=== PATIENT | male | born 1955 | race Caucasian/White ===

== ENCOUNTER 2019-01-18 12:23 | Emergency (ER) | payer MEDICARE ==
[~2019-01-18] VITALS: Ht 170.2 cm; Wt 55.9 kg
[2019-01-18 12:29] VITALS: TEMP 97
[2019-01-18 13:04] LABS: BASO % 0.3 % (0.0-2.0); EOS # 0.4 (0.0-0.7); EOS % 4.6 % (0-4.0); GRAN # 5.4 (1.4-6.5); GRAN % 67.9 % (42.2-75.2); LYMPH # 1.5 (1.2-3.4); MEAN CELL VOLUME 83 fl (80.0-100.0); MEAN CORPUSCULAR HGB CONC 33 g/dl (33.0-37.0); MEAN PLATELET VOLUME 10.1 fl (7.4-10.4); MONO # 0.6 (0.1-0.6); MONO % 7.6 % (1.7-9.3); PLATELET COUNT 277 K/mm3 (130-400); RED BLOOD COUNT 3.45 M/mm3 (4.20-5.60); REDCELL DISTRIBUTION WIDTH-CV 14.5 % (11.5-14.5)
[2019-01-18 13:19] LABS: ALANINE AMINOTRANSFERASE < 6 U/L (21-72); ALBUMIN 3.6 gm/dL (3.5-5.0); ALKALINE PHOSPHATASE 232 U/L (50-136); ANION GAP 12 mmol/L (7-16); AST,SGOT 35 U/L (15-37); BILIRUBIN,TOTAL 0.4 mg/dL (0.0-1.0); BLOOD UREA NITROGEN 30 mg/dL (9-20); CALCIUM 8.7 mg/dL (8.4-10.2); CARBON DIOXIDE 26 mmol/L (22-30); CHLORIDE 97 mmol/L (98-107); CREATININE, serum 1.22 (0.66-1.25); POTASSIUM 4.1 mmol/L (3.4-5.0); SODIUM 135 mmol/L (137-145); TOTAL PROTEIN 9.2 gm/dL (6.4-8.2)
[2019-01-18 13:22] LABS: GLUCOSE 535 mg/dL (74-106)
[2019-01-18 13:38] LABS: HEMATOCRIT 28.5 % (42.0-52.0); HEMOGLOBIN 9.3 g/dl (13.5-18.0); MEAN CORPUSCULAR HEMOGLOBIN 27 pg (27.0-31.0)
[2019-01-18] MEDS ORDERED: ASPIRIN 81M81 MG/TA2 PO (13:52)
[2019-01-18] MEDS ORDERED: NATURAL IRON65 MG (13:53)
[2019-01-18] MEDS ORDERED: CEPHALEXIN500 M1 PO (14:09)
[2019-01-18] MEDS ORDERED: NORCO 325 MG-51 TAB PO (14:10)
[2019-01-18 14:47] LABS: COLLECTION METHOD CLEAN CATCH
[2019-01-18 14:54] LABS: MUCOUS Present /lpf; PH 5 (5-8); SQUAMOUS EPITHELIAL 0-2 /hpf; URINE APPEARANCE Hazy; URINE BACTERIA Many /hpf; URINE BILIRUBIN Negative (NEGATIVE); URINE BLOOD 2+ (NEGATIVE); URINE COLOR Yellow; URINE GLUCOSE 3+ (NEGATIVE); URINE KETONE Negative (NEGATIVE); URINE LEUKOCYTE ESTERASE 2+ (NEGATIVE); URINE NITRATE Positive (NEGATIVE); URINE PROTEIN(semi-quant) 2+ (NEGATIVE); URINE UROBILINOGEN Negative (NEGATIVE)
[2019-01-18 15:15] VITALS: BP 161/103; PULSE 90
== END 2019-01-18 15:15 | disposition home or self-care (01) ==
LOC: COL.ER 12:23 → EDBD 12:25 → COL.ER 12:25
PROVIDERS: Family Medicine
DX: E11.65 Type 2 diabetes mellitus with hyperglycemia (principal); T22.011A Burn of unspecified degree of right forearm, initial encounter
CPT/HCPCS: J0690; J1815; J7030

== ENCOUNTER 2019-03-21 14:57 | Inpatient (IN) | payer MEDICARE ==
[~2019-03-21] VITALS: Ht 170.2 cm; Wt 54.7 kg
[~2019-03-21 14:57] MED LIST changes: -CORTEF 10MG TAB10 MG PO; -CRESTOR40 MG PO; -FLORINEF ACETA0.1 MG PO; -K-TAB10 PO; -LEVEMIR FLEX100 U/ML SQ; -LYRICA 25MG CAP25 MG PO; -NEURONTIN400 MG/CAP PO; -NOVOLOG FLEX100 U/ML SQ; -REQUIP0.25 MG PO; -ZYPREXA7.5 MG PO
[2019-03-21] MEDS ORDERED: FLORINEF ACETA0.1 MG PO (15:20)
[2019-03-21] MEDS ORDERED: NOVOLOG FLEX100 U/ML SQ (15:20)
[2019-03-21] MEDS ORDERED: LEVEMIR FLEX100 U/ML SQ (15:22)
[2019-03-21] MEDS ORDERED: ASPIRIN 81M81 MG/TA2 PO (15:24)
[2019-03-21] MEDS ORDERED: NEURONTIN400 MG/CAP PO (15:25)
[2019-03-21] MEDS ORDERED: CORTEF 10MG TAB10 MG PO (15:25)
[2019-03-21] MEDS ORDERED: ZYPREXA7.5 MG PO (15:27)
[2019-03-21] MEDS ORDERED: REQUIP0.25 MG PO (15:27)
[2019-03-21] MEDS ORDERED: K-TAB10 PO (15:27)
[2019-03-21] MEDS ORDERED: CRESTOR40 MG PO (15:28)
[2019-03-21 16:26] VITALS: BP 175/99; PULSE 102; TEMP 98.2
[2019-03-21 16:28] VITALS: BP 175/99; PULSE 100; TEMP 98.2
--- NOTE | 2019-03-21 18:00 | NUR ---
Pt admitted to floor this afternoon, no C/O pain currently, admission assessment complete, med rec complete.
[2019-03-21 22:09] VITALS: BP 155/81; PULSE 81; TEMP 100.1
--- NOTE | 2019-03-21 22:55 | NUR ---
Report received from EUSEBIA Cueva. Patient resting in bed. Dinner tray finished. Assessment complete. Patient reports pain in his head rating it 4/10. Patient also has temperature of 100.1. PRN tylenol given. Will reassess. Examined feet and did not see any diabetic foot injuries, only thing of importance was a little bit of dryness. IV patent, flushed. Denies any further needs. Call light within reach.
[2019-03-21 23:42] VITALS: BP 154/91; PULSE 93; TEMP 100.1
--- NOTE | 2019-03-22 03:11 | NUR ---
Patient requested urinal for accurate I&O's. Stated his headache had gone away. Patient was very sweaty. Patient denied any other needs. Call light within reach.
[2019-03-22 03:46] VITALS: BP 148/89; PULSE 78; TEMP 97.4
--- NOTE | 2019-03-22 05:33 | NUR ---
Patient had uneventful night. Resting in bed. No further needs at this time. Call light within reach.
--- NOTE | 2019-03-22 06:45 | NUR ---
Report given to EUSEBIA Cueva
--- NOTE | 2019-03-22 07:05 | NUR ---
Report given to EUSEBIA Brandon
[2019-03-22 07:18] LABS: BASO % 0.4 % (0.0-2.0); EOS # 0.3 (0.0-0.7); EOS % 3.7 % (0-4.0); GRAN # 4.6 (1.4-6.5); GRAN % 62.2 % (42.2-75.2); HEMOGLOBIN 10.4 g/dl (13.5-18.0); LYMPH # 1.5 (1.2-3.4); LYMPH % 19.6 % (20.0-51.0); MEAN CELL VOLUME 85 fl (80.0-100.0); MEAN CORPUSCULAR HEMOGLOBIN 27 pg (27.0-31.0); MEAN CORPUSCULAR HGB CONC 32 g/dl (33.0-37.0); MEAN PLATELET VOLUME 9.9 fl (7.4-10.4); MONO % 13.7 % (1.7-9.3); PLATELET COUNT 228 K/mm3 (130-400); RED BLOOD COUNT 3.86 M/mm3 (4.20-5.60)
[2019-03-22 07:27] LABS: HEMATOCRIT 32.9 % (42.0-52.0)
[2019-03-22 07:39] LABS: CALCIUM 8.5 mg/dL (8.4-10.2); CHOLESTEROL RISK RATIO 4.5; CREATININE, serum 1.49 (0.66-1.25); MAGNESIUM 1.7 mg/dL (1.6-2.3); POTASSIUM 3.1 mmol/L (3.4-5.0)
--- NOTE | 2019-03-22 08:00 | NUR ---
SEE MORNING ASSESSMENT.
--- NOTE | 2019-03-22 08:08 | NUR ---
CALLED AND NOTIFIED OF CARDIOLOGY CONSULT FOR CHF. NO ORDERS GIVEN AT THIS TIME.
[2019-03-22 08:43] VITALS: BP 135/84; PULSE 74; TEMP 97.6
--- NOTE | 2019-03-22 10:55 | NUR ---
Initial visit; Patient thanked Settlement Worker for looking in on him and offering God's blessings.
[2019-03-22 11:32] VITALS: BP 126/70; PULSE 85; TEMP 97.9
--- NOTE | 2019-03-22 11:40 | NUR ---
skip pit worker attended clinical rounds and met with with patient to discuss discharge plans. Patient stated he recently moved here from [place] to be closer to her is sister, Zainab. Patient states he lives alone and plans to return there upon discharge. Patient has a cane and states he utilizes food stamps. Patient states he is on the waiting list to start meals on wheels. Patient states that Dr Mckeon is his primary care provider and that he sometimes has difficulty obtaining his prescriptions. Patient states he has his medications that he needs at this time. Patient states he needs to be set up with [facility] and is agreeable to the hospital arranging an appointment at discharge.
--- NOTE | 2019-03-22 12:55 | NUR ---
CODY ANGELES CALLED AND NOTIFIED OF BLOOD SUGAR OF 408. ORDER GIVEN TO DOSE INSULIN PER HIGH SLIDING SCALE AND RE-CHECK BLOOD SUGAR 1 HOUR AFTER LUNCH.
--- NOTE | 2019-03-22 14:26 | NUR ---
PATIENTS BLOOD SUGAR RE-CHECKED ONE HOUR AFTER THE PATIENT RECIEVED 14 UNITS OF INSULIN AND ATE LUNCH. BLOOD SUGAR IS 312. CODY ANGELES CALLED AND NOTIFIED OF BLOOD SUGAR. ORDER GIVEN TO RE-CHECK THE PATIENTS BLOOD SUGAR IN ONE HOUR, AND IF STILL HIGH GIVE INSULIN BASED OFF THE HIGH DOSE NOVOLOG SLIDING SCALE.
[2019-03-22 15:38] VITALS: BP 140/85; PULSE 80; TEMP 97.3
--- NOTE | 2019-03-22 15:47 | NUR ---
PATIENTS BLOOD SUGAR RE-CHECKED AND IS 188. CODY ANGELES CALLED AND NOTIFIED OF BLOOD GLUCOSE LEVEL. ORDER GIVEN TO DOSE INSULIN WITH EVENING MEAL.
--- NOTE | 2019-03-22 17:54 | NUR ---
REPORT GIVEN TO EUSEBIA CISNEROS.
[2019-03-22 21:55] VITALS: BP 159/81; PULSE 80; TEMP 97.6
[2019-03-23 00:21] VITALS: BP 153/82; PULSE 75; TEMP 98.2
--- NOTE | 2019-03-23 00:38 | NUR ---
Pt sleeping in bed. Awoke for vital signs. Stated he was waiting for his sister to arrive. Sister arrived and is at bedside as VS were complete. Pt not in any pain or discomfort. Pt voices no concerns or questions at this time. Call light and personal belongings within reach. No other concerns.
[2019-03-23 04:34] VITALS: BP 156/87; PULSE 88; TEMP 98.1
[2019-03-23 06:46] LABS: BASO % 0.3 % (0.0-2.0); EOS # 0.3 (0.0-0.7); EOS % 4.1 % (0-4.0); GRAN # 4.4 (1.4-6.5); GRAN % 60.7 % (42.2-75.2); LYMPH # 1.6 (1.2-3.4); LYMPH % 22.1 % (20.0-51.0); MEAN CELL VOLUME 84 fl (80.0-100.0); MEAN CORPUSCULAR HGB CONC 32 g/dl (33.0-37.0); MONO # 0.9 (0.1-0.6); MONO % 12.4 % (1.7-9.3); PLATELET COUNT 230 K/mm3 (130-400); RED BLOOD COUNT 3.64 M/mm3 (4.20-5.60); REDCELL DISTRIBUTION WIDTH-CV 13.8 % (11.5-14.5)
[2019-03-23 06:47] LABS: HEMATOCRIT 30.4 % (42.0-52.0); HEMOGLOBIN 9.8 g/dl (13.5-18.0); MEAN CORPUSCULAR HEMOGLOBIN 27 pg (27.0-31.0)
[2019-03-23 06:53] LABS: CALCIUM 8.3 mg/dL (8.4-10.2); CREATININE, serum 1.41 (0.66-1.25); MAGNESIUM 1.7 mg/dL (1.6-2.3); POTASSIUM 3.6 mmol/L (3.4-5.0)
[2019-03-23 07:28] VITALS: BP 165/91; PULSE 85; TEMP 97.8
--- NOTE | 2019-03-23 07:54 | NUR ---
Report given to Rachel. Pt is resting quietly in bed. He voices no concern or needs at this moment. No further concern at this moment.
--- NOTE | 2019-03-23 10:02 | NUR ---
Pt awake alert and oriented. Pt denied pain. Call light in reach. Pt resting in bed.
[2019-03-23] MEDS ORDERED: LYRICA 25MG CAP25 MG PO (10:44)
[2019-03-23] MEDS ORDERED: CEPHALEXIN500 M1 PO (10:47)
--- NOTE | 2019-03-23 11:28 | NUR ---
Pt resting in bed comfortably with no concern. Call light in reach.
--- NOTE | 2019-03-23 12:30 | NUR ---
Pt resting and denied pain. Pt verbalizes that he'd like to have lunch here and wait for his ride home. Call light in reach.
[2019-03-23 12:59] VITALS: BP 127/70; PULSE 88; TEMP 98.9
--- NOTE | 2019-03-23 13:42 | NUR ---
Pt reveiwed his discharge instruction and able to verbalize understaning of DC instruction. Pt signed dc paper and waiting for pt's daughter to give her a ride back home. Call light in reach.
--- NOTE | 2019-03-23 15:06 | NUR ---
Pt and family reviewed discharge instruction and able to verbalize understanding of dc instruction. Pt signed dc paper and escorted out in WC.
== END 2019-03-23 15:07 | disposition home or self-care (01) | DRG 644 ==
LOC: MEDICAL 14:57
PROVIDERS: Nurse Practitioner Family; ADMIT Hospitalist
DX: E27.1 Primary adrenocortical insufficiency (principal); N39.0 Urinary tract infection, site not specified; I31.3 Pericardial effusion (noninflammatory); E11.65 Type 2 diabetes mellitus with hyperglycemia; E11.40 Type 2 diabetes mellitus with diabetic neuropathy, unspecified; Z79.4 Long term (current) use of insulin; B96.1 Klebsiella pneumoniae [K. pneumoniae] as the cause of diseases classified elsewhere; R31.9 Hematuria, unspecified; N18.3 Chronic kidney disease, stage 3 (moderate); E11.22 Type 2 diabetes mellitus with diabetic chronic kidney disease; E87.6 Hypokalemia; I25.10 Atherosclerotic heart disease of native coronary artery without angina pectoris; Z95.5 Presence of coronary angioplasty implant and graft; E78.5 Hyperlipidemia, unspecified; E11.621 Type 2 diabetes mellitus with foot ulcer; L97.519 Non-pressure chronic ulcer of other part of right foot with unspecified severity; F41.9 Anxiety disorder, unspecified; G25.81 Restless legs syndrome; I12.9 Hypertensive chronic kidney disease with stage 1 through stage 4 chronic kidney disease, or unspecified chronic kidney disease
CPT/HCPCS: 99222-AI; 99232-AI; 99239; A4216; J0696; J1644; J1815; J1940

== ENCOUNTER → 2019-03-21 | Outpatient (CLI) | payer MEDICARE ==
[~2019-03-21] MED LIST: ASPIRIN 81M81 MG/TA2 PO; CEPHALEXIN500 M1 PO; CORTEF 10MG TAB10 MG PO; CRESTOR40 MG PO; FLORINEF ACETA0.1 MG PO; K-TAB10 PO; LEVEMIR FLEX100 U/ML SQ; LYRICA 25MG CAP25 MG PO; NATURAL IRON65 MG; NEURONTIN400 MG/CAP PO; NORCO 325 MG-51 TAB PO; NOVOLOG FLEX100 U/ML SQ; REQUIP0.25 MG PO; ZYPREXA7.5 MG PO
[2019-03-21 12:21] LABS: COLLECTION METHOD CLEAN CATCH
[2019-03-21 12:27] LABS: BASO % 0.3 % (0.0-2.0); EOS # 0.3 (0.0-0.7); EOS % 2.6 % (0-4.0); GRAN # 6.5 (1.4-6.5); GRAN % 66.2 % (42.2-75.2); HEMOGLOBIN 10.2 g/dl (13.5-18.0); LYMPH # 1.8 (1.2-3.4); LYMPH % 18.5 % (20.0-51.0); MEAN CELL VOLUME 86 fl (80.0-100.0); MEAN CORPUSCULAR HEMOGLOBIN 27 pg (27.0-31.0); MEAN CORPUSCULAR HGB CONC 31 g/dl (33.0-37.0); MEAN PLATELET VOLUME 9.6 fl (7.4-10.4); MONO # 1.2 (0.1-0.6); MONO % 11.9 % (1.7-9.3); PLATELET COUNT 226 K/mm3 (130-400); RED BLOOD COUNT 3.85 M/mm3 (4.20-5.60); REDCELL DISTRIBUTION WIDTH-CV 14.1 % (11.5-14.5)
[2019-03-21 12:33] LABS: PH 6 (5-8); SQUAMOUS EPITHELIAL None Seen /hpf; URINE APPEARANCE Cloudy; URINE BACTERIA Many /hpf; URINE BILIRUBIN Negative (NEGATIVE); URINE BLOOD 2+ (NEGATIVE); URINE COLOR Yellow; URINE GLUCOSE 1+ (NEGATIVE); URINE KETONE Negative (NEGATIVE); URINE LEUKOCYTE ESTERASE 3+ (NEGATIVE); URINE NITRATE Negative (NEGATIVE); URINE PROTEIN(semi-quant) 2+ (NEGATIVE); URINE RBC 20-50 /hpf; URINE UROBILINOGEN Negative (NEGATIVE)
[2019-03-21 12:35] LABS: ALBUMIN 3.7 gm/dL (3.5-5.0); BILIRUBIN,TOTAL 0.3 mg/dL (0.0-1.0); CALCIUM 8.4 mg/dL (8.4-10.2); CREATININE, serum 1.43 (0.66-1.25); POTASSIUM 3.7 mmol/L (3.4-5.0); TOTAL PROTEIN 8.6 gm/dL (6.4-8.2)
[2019-03-21 12:37] LABS: HEMATOCRIT 32.9 % (42.0-52.0)
[2019-03-21 12:47] LABS: TROPONIN-I 0.014 ng/mL (0.000-0.035)
[2019-03-21 12:59] LABS: URINE PROTEIN:CREAT RATIO 9.24 (0.00-0.14)
[2019-03-21 13:05] LABS: THYROID STIMULATING HORMONE 2.46 uIU/mL (0.465-4.680)
== END ==
LOC: COL.RAD 11:47
PROVIDERS: Family Medicine
DX: J98.6 Disorders of diaphragm (principal); I51.9 Heart disease, unspecified; R63.5 Abnormal weight gain; M79.89 Other specified soft tissue disorders; R31.9 Hematuria, unspecified

== ENCOUNTER 2020-01-20 19:18 | Emergency (ER) | payer MEDICARE ==
[~2020-01-20] VITALS: Ht 170.2 cm; Wt 61.4 kg
[~2020-01-20 19:18] MED LIST changes: +CORTEF 10MG TAB10 MG PO; +CRESTOR40 MG PO; +FLORINEF ACETA0.1 MG PO; +K-TAB10 PO; +LEVEMIR FLEX100 U/ML SQ; +LYRICA 25MG CAP25 MG PO; +NEURONTIN400 MG/CAP PO; +NOVOLOG FLEX100 U/ML SQ; +REQUIP0.25 MG PO; +ZYPREXA7.5 MG PO
[2020-01-20 19:25] VITALS: TEMP 97.8
[2020-01-20 19:44] LABS: BASO % 0.3 % (0.0-2.0); EOS # 0.1 (0.0-0.7); EOS % 0.9 % (0-4.0); GRAN # 5.3 (1.4-6.5); GRAN % 71.5 % (42.2-75.2); LYMPH # 1.3 (1.2-3.4); LYMPH % 18.1 % (20.0-51.0); MEAN CELL VOLUME 82 fl (80.0-100.0); MEAN CORPUSCULAR HEMOGLOBIN 28 pg (27.0-31.0); MEAN CORPUSCULAR HGB CONC 34 g/dl (33.0-37.0); MEAN PLATELET VOLUME 10.8 fl (7.4-10.4); MONO # 0.7 (0.1-0.6); MONO % 8.8 % (1.7-9.3); PLATELET COUNT 200 K/mm3 (130-400); REDCELL DISTRIBUTION WIDTH-CV 12.5 % (11.5-14.5)
[2020-01-20 19:49] LABS: HEMATOCRIT 29.4 % (42.0-52.0)
[2020-01-20 19:57] LABS: COLLECTION METHOD CLEAN CATCH
[2020-01-20 19:58] LABS: ALANINE AMINOTRANSFERASE 34 U/L (4-49); ALBUMIN 3.3 gm/dL (3.5-5.0); ALKALINE PHOSPHATASE 146 U/L (50-136); ANION GAP 10 mmol/L (7-16); AST,SGOT 40 U/L (15-37); BILIRUBIN,TOTAL 0.4 mg/dL (0.0-1.0); BLOOD UREA NITROGEN 34 mg/dL (9-20); CALCIUM 8.1 mg/dL (8.4-10.2); CARBON DIOXIDE 27 mmol/L (22-30); CHLORIDE 98 mmol/L (98-107); CREATININE, serum 2.34 (0.66-1.25); GLUCOSE 396 mg/dL (74-106); POTASSIUM 3.1 mmol/L (3.4-5.0); SODIUM 134 mmol/L (137-145); TOTAL PROTEIN 7.1 gm/dL (6.4-8.2)
[2020-01-20 19:59] LABS: ACETONE,SERUM NEGATIVE; C-REACTIVE PROTEIN < 0.5 mg/dL (0.0-0.9)
[2020-01-20 20:05] LABS: PH 6 (5-8); SQUAMOUS EPITHELIAL 0-2 /hpf; URINE APPEARANCE Clear; URINE BACTERIA None Seen /hpf; URINE BILIRUBIN Negative (NEGATIVE); URINE BLOOD 2+ (NEGATIVE); URINE COLOR Straw; URINE GLUCOSE 3+ (NEGATIVE); URINE KETONE Negative (NEGATIVE); URINE LEUKOCYTE ESTERASE Negative (NEGATIVE); URINE NITRATE Negative (NEGATIVE); URINE PROTEIN(semi-quant) 3+ (NEGATIVE); URINE UROBILINOGEN Negative (NEGATIVE)
[2020-01-20] MEDS ORDERED: CEPHALEXIN500 M1 PO (20:52)
[2020-01-20 22:00] VITALS: BP 150/90; PULSE 88
== END 2020-01-20 22:00 | disposition home or self-care (01) ==
LOC: COL.ER 19:18
PROVIDERS: Emergency Medicine
DX: S99.922A Unspecified injury of left foot, initial encounter (principal); E11.65 Type 2 diabetes mellitus with hyperglycemia; E11.40 Type 2 diabetes mellitus with diabetic neuropathy, unspecified; Z79.4 Long term (current) use of insulin; Z79.82 Long term (current) use of aspirin; X58.XXXA Exposure to other specified factors, initial encounter; W22.8XXA Striking against or struck by other objects, initial encounter
CPT/HCPCS: J7030

== ENCOUNTER 2020-03-07 09:57 | Emergency (ER) | payer MEDICARE ==
[~2020-03-07] VITALS: Ht 170.2 cm; Wt 65.9 kg
[2020-03-07 10:00] VITALS: TEMP 98.3
[2020-03-07 10:29] LABS: BASO % 0.3 % (0.0-2.0); EOS % 0.4 % (0-4.0); GRAN # 9.5 (1.4-6.5); LYMPH % 9.2 % (20.0-51.0); MEAN CELL VOLUME 84 fl (80.0-100.0); MEAN CORPUSCULAR HGB CONC 33 g/dl (33.0-37.0); MEAN PLATELET VOLUME 9.6 fl (7.4-10.4); MONO # 0.5 (0.1-0.6); MONO % 4.5 % (1.7-9.3); PLATELET COUNT 215 K/mm3 (130-400); REDCELL DISTRIBUTION WIDTH-CV 14.6 % (11.5-14.5)
[2020-03-07 10:34] LABS: HEMATOCRIT 29.5 % (42.0-52.0); HEMOGLOBIN 9.8 g/dl (13.5-18.0); MEAN CORPUSCULAR HEMOGLOBIN 28 pg (27.0-31.0)
[2020-03-07 10:42] LABS: ALBUMIN 3.8 gm/dL (3.5-5.0); BILIRUBIN,TOTAL 0.4 mg/dL (0.0-1.0); CALCIUM 7.1 mg/dL (8.4-10.2); CREATININE, serum 2.96 (0.66-1.25); MAGNESIUM 1.8 mg/dL (1.6-2.3); PHOSPHOROUS 4.3 mg/dL (2.5-4.5); TOTAL PROTEIN 7.8 gm/dL (6.4-8.2)
[2020-03-07 10:46] LABS: POTASSIUM 2.4 mmol/L (3.4-5.0)
[2020-03-07 10:59] LABS: COLLECTION METHOD CLEAN CATCH
[2020-03-07 11:09] LABS: PH 7 (5-8); SQUAMOUS EPITHELIAL None Seen /hpf; URINE APPEARANCE Clear; URINE BACTERIA None Seen /hpf; URINE BILIRUBIN Negative (NEGATIVE); URINE BLOOD 1+ (NEGATIVE); URINE COLOR Yellow; URINE GLUCOSE 2+ (NEGATIVE); URINE KETONE Negative (NEGATIVE); URINE LEUKOCYTE ESTERASE Negative (NEGATIVE); URINE NITRATE Negative (NEGATIVE); URINE PROTEIN(semi-quant) 3+ (NEGATIVE); URINE UROBILINOGEN Negative (NEGATIVE)
[2020-03-07] MEDS ORDERED: PRINIVIL10 MG PO ×3 (13:07→14:09)
[2020-03-07] MEDS ORDERED: APRESOLINE 25MG25 MG PO ×3 (13:07→14:09)
[2020-03-07 13:27] VITALS: BP 209/131; PULSE 85
== END 2020-03-07 13:27 | disposition home or self-care (01) ==
LOC: COL.ER 09:57
PROVIDERS: Emergency Medicine
DX: I13.10 Hypertensive heart and chronic kidney disease without heart failure, with stage 1 through stage 4 chronic kidney disease, or unspecified chronic kidney disease (principal); I25.10 Atherosclerotic heart disease of native coronary artery without angina pectoris; E87.6 Hypokalemia; Z79.4 Long term (current) use of insulin; Z79.82 Long term (current) use of aspirin
CPT/HCPCS: J3480; J7030

== ENCOUNTER → 2020-03-12 | Outpatient (CLI) | payer MEDICARE ==
[~2020-03-12] MED LIST changes: +APRESOLINE 25MG25 MG PO; +PRINIVIL10 MG PO
[2020-03-12 16:51] LABS: CALCIUM 6.7 mg/dL (8.4-10.2); CREATININE, serum 2.4 (0.66-1.25)
[2020-03-12 17:28] LABS: POTASSIUM 2.7 mmol/L (3.4-5.0)
== END ==
LOC: COL.LAB 16:04
PROVIDERS: Emergency Medicine
DX: Z01.89 Encounter for other specified special examinations (principal)

== ENCOUNTER 2020-06-26 16:31 | Emergency (ER) | payer MEDICARE ==
[~2020-06-26] VITALS: Ht 167.6 cm; Wt 74.1 kg
[2020-06-26 16:34] VITALS: TEMP 98.7
[2020-06-26 16:54] LABS: BASO % 0.2 % (0.0-2.0); EOS % 0.1 % (0-4.0); GRAN # 10.7 (1.4-6.5); GRAN % 86.8 % (42.2-75.2); HEMATOCRIT 28.2 % (42.0-52.0); HEMOGLOBIN 9.4 g/dl (13.5-18.0); LYMPH # 0.8 (1.2-3.4); LYMPH % 6.5 % (20.0-51.0); MEAN CELL VOLUME 84 fl (80.0-100.0); MEAN CORPUSCULAR HEMOGLOBIN 28 pg (27.0-31.0); MEAN CORPUSCULAR HGB CONC 33 g/dl (33.0-37.0); MEAN PLATELET VOLUME 10.4 fl (7.4-10.4); MONO # 0.7 (0.1-0.6); PLATELET COUNT 194 K/mm3 (130-400); RED BLOOD COUNT 3.36 M/mm3 (4.20-5.60); REDCELL DISTRIBUTION WIDTH-CV 12.7 % (11.5-14.5)
[2020-06-26 17:13] LABS: ALBUMIN 3.9 gm/dL (3.5-5.0); BILIRUBIN,TOTAL 0.5 mg/dL (0.0-1.0); CREATININE, serum 4.22 (0.66-1.25); MAGNESIUM 1.6 mg/dL (1.6-2.3); POTASSIUM 3.9 mmol/L (3.4-5.0); TOTAL PROTEIN 7.4 gm/dL (6.4-8.2)
[2020-06-26 17:19] LABS: PROTHROMBIN TIME 10.6 SECONDS (9.7-12.8)
[2020-06-26 17:22] LABS: PARTIAL THROMBOPLASTIN TIME 27.9 SECONDS (26.0-37.0)
[2020-06-26 17:24] LABS: TROPONIN-I 0.016 ng/mL (0.000-0.035)
[2020-06-26 19:50] VITALS: BP 152/111; PULSE 108
== END 2020-06-26 19:50 | disposition short-term general hospital (02) ==
LOC: COL.ER 16:31
PROVIDERS: Nurse Practitioner
DX: S06.360A Traumatic hemorrhage of cerebrum, unspecified, without loss of consciousness, initial encounter (principal); I13.10 Hypertensive heart and chronic kidney disease without heart failure, with stage 1 through stage 4 chronic kidney disease, or unspecified chronic kidney disease; E27.1 Primary adrenocortical insufficiency; Z79.4 Long term (current) use of insulin; Z79.82 Long term (current) use of aspirin; W19.XXXA Unspecified fall, initial encounter
CPT/HCPCS: J7050

== ENCOUNTER 2020-08-08 14:16 | Inpatient (IN) | payer MEDICARE, MEDICAID ==
[~2020-08-08] VITALS: Ht 167.6 cm; Wt 77.9 kg
[~2020-08-08 14:16] MED LIST changes: +ASPIRIN 81M81 MG/TA2 PEG; +CRESTOR40 MG PEG; -CRESTOR40 MG PO; -NATURAL IRON65 MG; +NATURAL IRON65 MG PEG; +REQUIP0.25 MG PEG; -REQUIP0.25 MG PO
--- NOTE | 2020-08-08 16:00 | NUR ---
Patient to room 354 by wheelchair to room 354. Matthew lift utilized to transfer patient to the bed. Patient alert and partially confused, slow to answer questions. VSS, BP hypotensive, patient asymptomatic. Peg tub CDI. Heel protectors on feet. Nurse oriented the patient to the bed and call light. HOB elevated. Denies pain and discomfort. No further needs expressed from the patient. Call light within reach. Bed alarm on
[2020-08-08] MEDS ORDERED: NORVASC 10MG10 MG PO (16:35)
[2020-08-08 16:36] VITALS: BP 81/55; PULSE 55; TEMP 97.6
[2020-08-08] MEDS ORDERED: CORTEF 10MG TAB10 MG PO (16:40)
[2020-08-08] MEDS ORDERED: CARDURA 1MG1 MG PO (16:43)
[2020-08-08] MEDS ORDERED: CYMBALTA 20MG20 MG PEG (16:44)
[2020-08-08] MEDS ORDERED: ZETIA 10MG TAB10 MG PEG (16:45)
[2020-08-08] MEDS ORDERED: LEVEMIR100 U/ML SQ (16:48)
[2020-08-08] MEDS ORDERED: LYRICA 25MG CAP25 MG PEG (16:50)
[2020-08-08] MEDS ORDERED: COREG 25MG25 MG/TAB PO (16:52)
[2020-08-08] MEDS ORDERED: NEXIUM ORA40 MG/Pack PEG ×2 (16:53)
[2020-08-08] MEDS ORDERED: FLORINEF ACETA0.1 MG PEG (16:54)
[2020-08-08] MEDS ORDERED: BIOTENE DRY M1000 ML (16:56)
[2020-08-08] MEDS ORDERED: BUSPAR DIVIDOSE15 MG PO (16:59)
[2020-08-08] MEDS ORDERED: TYLENOL 325MG325 MG PO (17:01)
[2020-08-08 17:44] LABS: MEAN CELL VOLUME 94 fl (80.0-100.0); MEAN CORPUSCULAR HGB CONC 31 g/dl (33.0-37.0); MEAN PLATELET VOLUME 13.1 fl (7.4-10.4); PLATELET COUNT 75 K/mm3 (130-400); RED BLOOD COUNT 2.08 M/mm3 (4.20-5.60); REDCELL DISTRIBUTION WIDTH-CV 15.8 % (11.5-14.5)
[2020-08-08 17:47] LABS: HEMATOCRIT 19.5 % (42.0-52.0); HEMOGLOBIN 6.1 g/dl (13.5-18.0); MEAN CORPUSCULAR HEMOGLOBIN 29 pg (27.0-31.0)
[2020-08-08 17:49] LABS: INR 1.1 (0.8-3.0); PROTHROMBIN TIME 12.5 SECONDS (9.7-12.8)
[2020-08-08 17:53] LABS: COLLECTION METHOD CLEAN CATCH
[2020-08-08 17:54] LABS: ALBUMIN 2.9 gm/dL (3.5-5.0); BILIRUBIN,TOTAL 0.4 mg/dL (0.0-1.0); CALCIUM 7.6 mg/dL (8.4-10.2); CREATININE, serum 4.6 (0.66-1.25); POTASSIUM 4.3 mmol/L (3.4-5.0); TOTAL PROTEIN 6.2 gm/dL (6.4-8.2)
--- NOTE | 2020-08-08 17:59 | NUR ---
Patient sitting up in bed, fidgety with hands. Denies pain and discomfort. VSS BP hypotensive, asymptomatic. IV CDI, coban covering. Sanchez dependent drainage. No further needs expressed from the patient. Call light within reach. Bed alarm on
[2020-08-08 18:04] LABS: AMORPHOUS CRYSTAL Present /uL; PH 5 (5-8); URINE APPEARANCE Turbid; URINE BACTERIA Many /hpf; URINE BILIRUBIN Negative (NEGATIVE); URINE BLOOD Negative (NEGATIVE); URINE COLOR Yellow; URINE GLUCOSE Negative (NEGATIVE); URINE KETONE Negative (NEGATIVE); URINE LEUKOCYTE ESTERASE 2+ (NEGATIVE); URINE NITRATE Negative (NEGATIVE); URINE PROTEIN(semi-quant) 2+ (NEGATIVE); URINE RBC 20-50 /hpf; URINE UROBILINOGEN Negative (NEGATIVE)
[2020-08-08 18:30] LABS: BAND 3 % (0-10); LYMPHOCYTE 7 % (20.0-51.0); METAMYELOCYTE 3 % (0-0); NEUTROPHILS 84 % (42.0-75.2)
[2020-08-08 18:33] LABS: ANISOCYTOSIS 1+; HYPOCHROMIA 2+; PLATELET ESTIMATE DECREASED (NORMAL)
[2020-08-08 19:20] LABS: IRON,SERUM 43 ug/dL (35-150)
[2020-08-08 19:24] LABS: TOTAL IRON BINDING CAPACITY 260 ug/dL (261-462)
[2020-08-08 19:56] VITALS: BP 108/61; BP 88/61; PULSE 53; TEMP 98
--- NOTE | 2020-08-08 20:00 | NUR ---
Shift report received from EUSEBIA Beth. Patient is currently returning from CT and is resting in bed. He appears comfortable and is breathing RA. Will continue to monitor.
--- NOTE | 2020-08-08 20:30 | NUR ---
ASSOCIATE MANAGER reports patient's BG result is 13 at this time. Hypoglycemic protocol is implemented and 12.5 mg dextrose is administered IV. BG recheck results 76. BG recheck 20 minutes later results 60. Additional 12.5 mg dextrose administered per protocol. Patient is very drowsy. Also during this time, patient's BPs are 80's/40's. Dr. Tejeda is notified and orders D5 1/2 NS at 100/hr which is initiated now. BPs improve with these fluids. Jevity 1.5 is initiated into LLQ peg tube at continuous rate of 40 ml/hr. Patient was satting 86% on RA during this time and is placed on 2 liters oxymask which improves the desatting. Approximately 40 minutes after these circumstances, the patient is much more awake/alert and vitals/sugars are improving. Will continue to closely monitor.
[2020-08-09] VITALS (17 sets, daily range): BP systolic 92–160; BP diastolic 59–79; PULSE 65–76; TEMP 96.9–98.2
[2020-08-09 07:23] LABS: MEAN CELL VOLUME 94 fl (80.0-100.0); MEAN CORPUSCULAR HGB CONC 32 g/dl (33.0-37.0); MEAN PLATELET VOLUME 13.7 fl (7.4-10.4); PLATELET COUNT 71 K/mm3 (130-400); RED BLOOD COUNT 2.11 M/mm3 (4.20-5.60); REDCELL DISTRIBUTION WIDTH-CV 15.9 % (11.5-14.5)
[2020-08-09 07:26] LABS: HEMATOCRIT 19.8 % (42.0-52.0); HEMOGLOBIN 6.3 g/dl (13.5-18.0); MEAN CORPUSCULAR HEMOGLOBIN 30 pg (27.0-31.0)
[2020-08-09 07:29] LABS: ALBUMIN 2.8 gm/dL (3.5-5.0); BILIRUBIN,TOTAL 0.3 mg/dL (0.0-1.0); CALCIUM 7.3 mg/dL (8.4-10.2); CREATININE, serum 5.09 (0.66-1.25); POTASSIUM 4.7 mmol/L (3.4-5.0)
[2020-08-09 08:06] LABS: LYMPHOCYTE 9 % (20.0-51.0); MYELOCYTE 1 % (0-0); NEUTROPHILS 83 % (42.0-75.2)
[2020-08-09 08:08] LABS: ANISOCYTOSIS 1+; HYPOCHROMIA 3+; PLATELET ESTIMATE DECREASED (NORMAL)
--- NOTE | 2020-08-09 10:19 | NUR ---
PT LAYING IN BED AT THIS TIME. PT IS UNABLE TO ANSWER QUESTIONS APPROPRIATELY, HOWEVER DOES STATE THAT HE HAS A DIFFICULT TIME BREATHING. HIS LUNG SOUNDS ARE ADVANTAGEOUS, AND SHOULD BE ADDRESSED. PROVIDER NOTIFIED OF ABSENT LUNG SOUND IN THE LEFT LOWER LOBE, AND HE STATES THAT WE WILL AWAIT THE CT RESULTS. ALL OTHER VITALS ARE WNL, PT LABS ARE DECLINING, WITH A SLIGHT IMPROVEMENT IN THE HGB FROM 6.1 TO 6.3. BLOOD BANK NOTIFIED THIS RN THAT BLOOD HAS BEEN LOCATED FOR THIS PATIENT AND SHOULD ARRIVE THIS AFTERNOON. THERE ARE NO OTHER CONCERNS AT THIS TIME. CALL LIGHT IS WITHIN REACH, AND BED ALARM IS ON. TUBE FEED IS CONTINUOUSLY RUNNING. HYPOGLYCEMIC PROTOCOL D/CD AT THIS TIME.
--- NOTE | 2020-08-09 11:27 | NUR ---
Plan to return to [place] in for continued stay for skilled. Patient has option to go LTC. SW contacted sister Zainab who is POA. V[facility] has copy on file and sister reports that she gave a copy to hospital. SW requested another copy. Sister reports that the patient came to [facility] a month ago and had a brain bleed. Patient was transfered to [facility] and then DC to [place]. Prior to indcident patient was residing at [facility] independently. Sister reports that the hope is to have patient return to independent status. Patient's pcp is Dr. Dhillon, medications are handled through [facility]. Patient uses a cane and4wh walker. Patient is reported to have stints in heart. Patient siser is Zainab Laureano . Will continue to follow care for patient who may need additional supports.
--- NOTE | 2020-08-09 15:01 | NUR ---
PT SLEPT MOST OF THE DAY. PT ANSWERED BASIC YES/NO QUESTIONS AND STEADILY BECOME MORE ORIENTED TO PERSON. BLOOD PLANNED TO BE TRANSFUSED TODAY. TOELRATED BED BATH FINE. TUBE FEEDING STILL CONTINUOUSLY RUNNING WITHOUT ISSUES.
[2020-08-09 19:13] LABS: HEPATITIS A ANTIBODY-IGM Negative (Negative); HEPATITIS B CORE AB,TOTAL Negative (()); HEPATITIS C VIRUS ANTIBODY Negative (Negative)
--- NOTE | 2020-08-09 19:40 | NUR ---
PATIENT RECIVED 1 UNIT OF PRBC, ONE MORE UNIT TO BE INFUSED. PATIENT WAS TITRATED DOWN TO 1 LITER OF O2 VIA OXYMASK. SATS ARE RUNNING IN THE MID 90S. PATIENT CURRENTLY RESTING IN BED. DOES NOT COMPLAIN OF ANY PAIN OR DISCOMFORT AT THIS TIME. FALL PERCAUIONS IN PLACE. BEDSIDE REPORT GIVEN TO EUSEBIA DENISE.
--- NOTE | 2020-08-09 22:31 | NUR ---
Patient resting in bed upon shift start. Blood transfusion was just completed upon shift start. VS stable. Patient alert but not oriented. Patient denies any pain or discomfort. Denies SOB or dyspnea. Patient currently on 2L oxygen via oxymask. No acute respiratory distress noted. Jevity 1.5 gigi infusing via PEG tube at 40ml/hr continuously. Patient tolerating PEG tube feeding well. HOB maintained elevatede at 45 degress. Sanchez catheter in place and draining clear yellow urine. Call light within reach. Will continue to monitor.
[2020-08-10] VITALS (7 sets, daily range): BP systolic 107–140; BP diastolic 60–82; PULSE 66–81; TEMP 96–98.5
--- NOTE | 2020-08-10 00:49 | NUR ---
[facility] started at 21:55 pm. VS stable at this time. Transfusion completed at 00:26 am. Patient tolerated well. No adverse reaction noted. VS stable. Will continue to monitor.
[2020-08-10 01:32] LABS: HEMATOCRIT 28.8 % (42.0-52.0); HEMOGLOBIN 9.6 g/dl (13.5-18.0)
--- NOTE | 2020-08-10 05:44 | NUR ---
Patient stays awake most of clinical support associate. Patient had soft BM x1 this morning. Changed brief and linda-care, vega care provided. Applied barrier cream to sacral excoriation area. Patient has been pulling off gown, pulling off Tele-strip constantly and attemping to pull out PEG tube. Bed-alarms on. Will give report to day shift nurse.
--- NOTE | 2020-08-10 08:47 | NUR ---
at 0730 pt found w/o oxygen on. satting 77%, placed oxygen and pt came up to 83%, hob raised, vitals taken, oxygen inc from 2 to 4L via oxymask. pt oxygen inc to 86%. after a few minutes oxygen inc to 6L, pt satting 89-90%. rt notified. pt stayed here consistently for about 10min then oxygen started dropping again. pt oxygen gradually inc to 10L by RT. pt satting 89-90% on 10L. Attempted to reach Dr. Augustin, no answer. lung sounds course. Still satting 89% after titrating to 11L.
--- NOTE | 2020-08-10 09:05 | NUR ---
DR. DESOUZA RETURNED CALL, NEW ORDERS GIVEN, PEG TUBE PLACED ON HOLD PER PHYSICIAN ORDER. WANTS US TO CALL WITH URINE OUTPUT IN 2-3 HOURS.
[2020-08-10 09:34] LABS: INR 1.1 (0.8-3.0); PROTHROMBIN TIME 12.7 SECONDS (9.7-12.8)
[2020-08-10 10:25] LABS: MEAN CELL VOLUME 91 fl (80.0-100.0); MEAN CORPUSCULAR HGB CONC 33 g/dl (33.0-37.0); MEAN PLATELET VOLUME 13.6 fl (7.4-10.4); PLATELET COUNT 81 K/mm3 (130-400); RED BLOOD COUNT 3.04 M/mm3 (4.20-5.60); REDCELL DISTRIBUTION WIDTH-CV 15.7 % (11.5-14.5)
[2020-08-10 10:27] LABS: BILIRUBIN,TOTAL 0.4 mg/dL (0.0-1.0); CALCIUM 7.3 mg/dL (8.4-10.2); POTASSIUM 4.8 mmol/L (3.4-5.0); TOTAL PROTEIN 6.5 gm/dL (6.4-8.2)
[2020-08-10 10:50] LABS: HEMATOCRIT 27.6 % (42.0-52.0); HEMOGLOBIN 9.1 g/dl (13.5-18.0); MEAN CORPUSCULAR HEMOGLOBIN 30 pg (27.0-31.0)
[2020-08-10 10:55] LABS: BAND 11 % (0-10); EOSINOPHIL 2 % (0-4); LYMPHOCYTE 10 % (20.0-51.0); METAMYELOCYTE 1 % (0-0); NEUTROPHILS 72 % (42.0-75.2)
[2020-08-10 10:56] LABS: PLATELET ESTIMATE DECREASED (NORMAL)
[2020-08-10 10:57] LABS: ANISOCYTOSIS 1+; MICROCYTOSIS 1+; POIKILOCYTOSIS 1+
--- NOTE | 2020-08-10 11:55 | NUR ---
UPDATED CHARLENE ON PT OUTPUT OF 50ML IN [place]TE[place].
--- NOTE | 2020-08-10 12:12 | NUR ---
First visit from the rigger helper. No needs right now.
[2020-08-10 12:23] LABS: HEPATITIS B SURFACE ANTIBODY <2.0 (()); HEPATITIS B SURFACE ANTIGEN Negative (Negative)
--- NOTE | 2020-08-10 13:18 | NUR ---
PATIENT HAD TAKEN OFF HIS OXYGEN MASK WHEN WENT IN TO TAKE VITALS TAKEN @ 1113. O2 SAT WAS AT 83 AND OXYGEN MASK WAS IMMEDIATELY PUT ON. MONITORED PATIENT UNTIL O2 SAT REACHED 91. WILL CONTINUE TO MONITOR PATIENT VITALS AND ENSURE THAT OXYGEN CONTINUES TO BE DELIVERED.
--- NOTE | 2020-08-10 14:23 | NUR ---
Trade Union Official contacted Lorenza at [facility] and left a message. SW also faxed clinical updates. EVELYN then contacted C[facility] Bentley and requested PT/OT orders as plan is for patient to return skilled to [facility].
--- NOTE | 2020-08-10 14:36 | NUR ---
OFF FLOOR FOR PLACEMENT OF TEMP DIALYSIS CATH
--- NOTE | 2020-08-10 15:59 | NUR ---
report given from Abimael packing house laborer RN, pt on bipap in dialysis at this time.
--- NOTE | 2020-08-10 16:10 | NUR ---
Pt transferring to dialysis following TDC insertion. Pt on O2 at 11 L/min via NC on orange picker machine operator from floor. On laborer general table, pt requiring 15 L/min via Oxymask to maintain saturation of 90%. Pt denying dyspnea and not appearing in distress. All other VS's stable. Following TDC insertion, pt transferring directly to dialysis on 15 L/min via Oxymask. Pt saturation falling to 85-86% on this flow rate during transfer. On arrival, saturations not improving. RT contacted by this RN while CHILO Bentley contacted by Chuyita Crockett RN at 1550. RT arriving by 1555 and placing pt on BiPAP support with saturations immediately increasing to >95%. Pt stable at this time, and dialysis treatment being initiated by EUSEBIA Crockett.
--- NOTE | 2020-08-10 17:14 | NUR ---
PT ON BIPAP IN DIALYSIS, STILL NOT BACK FROM DIALYSIS AT THIS TIME.
--- NOTE | 2020-08-10 18:02 | NUR ---
PT RETURNED FROM DIALYSIS, VITALS OBTAINED, PT ON 10L OXYGEN SATTING 95%. 1L OFF IN DIALYSIS.
--- NOTE | 2020-08-10 18:15 | NUR ---
Patient tolerated his 1st HD tx well, removed 1L of fluid. Patient off BiPAP & O2 @ 10 L via highflow NC, Sat O2 @ 95%. Next HD tx planned for tomorrow, Monday08/11/20 & 0800.
--- NOTE | 2020-08-10 18:54 | NUR ---
ENTERED ROOM TO DO BEDISDE SHIFT REPORT, PT HAD RIPPED OFF DRESSING ON DIALYSIS CATHETER AND TAKEN OFF OXYGEN. PT PLACED ON OXYGEN, STERILE DRESSING CHANGE PERFORMED, CONTEH EMPTIED.
--- NOTE | 2020-08-11 00:33 | NUR ---
Patient laying in bed with HOB elevated 30 degres upon receiving bed-side report. Patient removed oxygen and removed right upper chest dialysis access site dressings. Skin tear and small amount of bleeding noted to right upper chest above dialysis access site. EUSEBIA Vargas cleaned the site and applied gauze. Noticed right upper chest skin tear area gauze was moderately saturated with blood around 2100. Applied dry gauze and applied pressure for 5 min. Checked on bleeding every 15 min. No more bleeding noted. Patient has been keep pulling off tele-strips and oxygen. Patient also opened up PEG tube cap and put the PEG tube in his mouth and trying to suck gastric contents. Applied mittens on his both hands. Patient moving hands and arms and pulled off mittens several times. Patient keeps pulling off oxygen and telestrips, and playing with his PEG tube. Called Dr. Tejeda and received order for Ativan. PRN Ativan given at 21:32 pm for restlessness. Per , re-start PEG tube feeing but discontinue water-flush. PEG tube feeding started at 22:30 pm continous rate of 40ml/hr. Checked placement of PEG tube with stethoscope and checked gastric residual. HOB remains elevated at 30 degrees. All scheduled meds given per JUL. Patient on 10L oxygen via high flow NC. VS stable. Patient resting in bed with eyes closed at 22:30 pm. Mittens on. Bed alarms on. No acute respiratory distress noted at this time. Will continue to monitor.
[2020-08-11 03:40] VITALS: BP 147/83; PULSE 83; TEMP 98.7
--- NOTE | 2020-08-11 05:32 | NUR ---
Patient fell a sleep after receving Ativan. Awake around 4 am, and keeps using mittens to push nasal canula off of his nose. Re-applied nasal canula and instructed him do not take oxygen off. Patient said, "OK". But after a few minutes, trying to remove oxygen again. Right side of neck above dialysis access site skin tear/open area started bleeding again around 4am. Applied pressure for 15 min. Bleeding stopped. Applied dry gauze and covered with Tegaderm. Patient has been coughing on and off over the night. PEG tube feeding running at 40ml/hr continously. HOB maintained at least 30 degrees throughout the night. Will give report to day shift nurse.
--- NOTE | 2020-08-11 06:23 | NUR ---
Patient had large loose BM around 6 am. Changed incontinent brief, linda-care and vega care provided. HOB elevated to 30 degrees after nursing care.
[2020-08-11 08:29] VITALS: BP 149/80; PULSE 85
--- NOTE | 2020-08-11 08:57 | NUR ---
Pt assessment complete. Pt is laying in bed upon entry, he is alert but unable to speak as he is wearing the bipap. He shakes his head no when asked if in pain. Pt continuously coughing and groaning. Dressing to dialysis catheter currently CDI, despite coke crane operator RN having issues with bleeding. Tube feeding continuously running, vega DD. Pt repositioned with pillow under bottom. Pt changed to O2 via OM and transported to dialysis.
[2020-08-11 09:18] LABS: MEAN CELL VOLUME 91 fl (80.0-100.0); MEAN CORPUSCULAR HGB CONC 33 g/dl (33.0-37.0); MEAN PLATELET VOLUME 12.6 fl (7.4-10.4); PLATELET COUNT 91 K/mm3 (130-400); RED BLOOD COUNT 2.95 M/mm3 (4.20-5.60); REDCELL DISTRIBUTION WIDTH-CV 15.7 % (11.5-14.5)
[2020-08-11 09:24] LABS: ALBUMIN 2.9 gm/dL (3.5-5.0); BILIRUBIN,TOTAL 0.4 mg/dL (0.0-1.0); CALCIUM 7.6 mg/dL (8.4-10.2); CREATININE, serum 5.47 (0.66-1.25); POTASSIUM 5.1 mmol/L (3.4-5.0); TOTAL PROTEIN 6.4 gm/dL (6.4-8.2)
[2020-08-11 09:53] LABS: HEMATOCRIT 26.7 % (42.0-52.0); HEMOGLOBIN 8.9 g/dl (13.5-18.0); MEAN CORPUSCULAR HEMOGLOBIN 30 pg (27.0-31.0)
[2020-08-11 09:59] LABS: BAND 24 % (0-10); LYMPHOCYTE 4 % (20.0-51.0); METAMYELOCYTE 2 % (0-0); NEUTROPHILS 70 % (42.0-75.2); PLATELET ESTIMATE DECREASED (NORMAL)
[2020-08-11 11:56] LABS: HEPATITIS AB (HAV) IGG INDEX 11.76 Index (<=1.00)
[2020-08-11 12:15] VITALS: BP 137/96; PULSE 82; TEMP 98.7
--- NOTE | 2020-08-11 15:56 | NUR ---
Update given to patient's sister. She states she will be out of town for a few days and may not get good cell service.
[2020-08-11 16:03] VITALS: BP 135/73; PULSE 90; TEMP 98.8
--- NOTE | 2020-08-11 16:38 | NUR ---
Cloud Developer spoke with [facility] about patient's discharge plan. Sheree advised it's too early to tell if patient will need dialysis upon discharge. EVELYN contacted Lorenza at [facility] who advised if patient needs dialysis, they cannot accept. EVELYN contacted patient's sister, Zainab about additional referrals in case patient needs dialysis at discharge. Zainab is open to referrals being sent to [facility], [facility], [facility], and [facility]. SW contacted the facilities and faxed referrals.
--- NOTE | 2020-08-11 18:19 | NUR ---
Pt more alert and responsive this afternoon. Mitts remained in place so patient wouldn't pull at tubing. Remains on 10L O2 via NC. Laura GARCIA. Pt repositioned through the day. Tube feedings continued, kitchen notified for new tube feedings. Fall precautions in place.
[2020-08-11 19:14] VITALS: BP 135/71; PULSE 91; TEMP 98.7
[2020-08-12 00:50] VITALS: BP 140/79; PULSE 93; TEMP 99.3
[2020-08-12 04:12] VITALS: BP 148/72; PULSE 88; TEMP 98.5
--- NOTE | 2020-08-12 04:34 | NUR ---
PATIENT CALM AND COOPERATIVE THROUGHOUT THIS SHIFT. PRN ATIVAN ADMINISTERED X'S 1 AND PRN TYLENOL ADMINISTERED X'S 1 THROUGHOUT THIS SHIFT. NEPRO WITH CARB STEADY STARTED VIA PEG TUBE AT 1900 LAST EVENING WITH NO ADVERSE REACTION. INSULIN ADMINISTERED PER 'S ORDERS. NO NEW ISSUES NOTED OR REPORTED BY PATIENT.
[2020-08-12 07:09] LABS: MEAN CELL VOLUME 91 fl (80.0-100.0); MEAN CORPUSCULAR HGB CONC 33 g/dl (33.0-37.0); PLATELET COUNT 93 K/mm3 (130-400); REDCELL DISTRIBUTION WIDTH-CV 15.6 % (11.5-14.5)
[2020-08-12 07:11] LABS: HEMATOCRIT 24.5 % (42.0-52.0); HEMOGLOBIN 8.1 g/dl (13.5-18.0); MEAN CORPUSCULAR HEMOGLOBIN 30 pg (27.0-31.0)
[2020-08-12 07:19] LABS: ALBUMIN 2.9 gm/dL (3.5-5.0); BILIRUBIN,TOTAL 0.6 mg/dL (0.0-1.0); CALCIUM 7.6 mg/dL (8.4-10.2); CREATININE, serum 4.13 (0.66-1.25); POTASSIUM 3.6 mmol/L (3.4-5.0); TOTAL PROTEIN 6.2 gm/dL (6.4-8.2)
--- NOTE | 2020-08-12 07:30 | NUR ---
Report received from EUSEBIA Amezcua. pT in bed resting, stool in brief, ngt shift kindly changing, will continue to monitor.
[2020-08-12 07:46] VITALS: BP 126/69; PULSE 85; TEMP 98.5
[2020-08-12 08:09] LABS: BAND 21 % (0-10); LYMPHOCYTE 8 % (20.0-51.0); METAMYELOCYTE 2 % (0-0); NEUTROPHILS 64 % (42.0-75.2)
[2020-08-12 08:10] LABS: PLATELET ESTIMATE DECREASED (NORMAL)
--- NOTE | 2020-08-12 09:09 | NUR ---
Assessment charted. pT brought over to dialysis per EUSEBIA Crockett. Pt resting in bed, not responding to my questions, did INT PEG tube feeding per Keira flushed and residual of 35 ccs found. Cleaned around site and gauze placed, does appear PEG tube is displacing some, will talk to hospitalist about this. Heel floaters on, mitts on for safety, vega draining claer yellow urine to DD, arms have some bruising. Will continue to monitor when returning from diaylsis.
[2020-08-12 12:19] VITALS: BP 134/74; PULSE 85; TEMP 97.9
--- NOTE | 2020-08-12 12:46 | NUR ---
Patient tolerated his 3rd HD tx today, rmoved 3 L of fluid. Next tx planned for Monday08/14/20 @ 0730.
[2020-08-12 16:05] VITALS: BP 143/76; PULSE 88; TEMP 98.5
--- NOTE | 2020-08-12 18:14 | NUR ---
Pt has been turned q2 for comfort today, able to get mitts off often and remove telemetry and oxygen tubing. PEG continuous today except when in dialysis, HOB elevated throughout day. Antibiotics infusing to RW. 02 at 8L NC. Resting between disturbances. Paula Yi exchanged vega catheter on Monday. Will give bedside shift report to nightshiftjohana lucas who will resume care.
[2020-08-12 19:49] VITALS: BP 136/73; PULSE 80; TEMP 98.2
--- NOTE | 2020-08-12 20:39 | NUR ---
KIN Little APRN NOTIFIED OF PATIENTS CRITICAL VALUES (SODIUM 117, CHLORIDE 89, CO2 15 AND CALCIUM 7). NO NEW ORDERS AT THIS TIME.
[2020-08-13 00:19] VITALS: BP 123/73; PULSE 82; TEMP 98.2
[2020-08-13 04:50] VITALS: BP 122/63; PULSE 88; TEMP 98.3
--- NOTE | 2020-08-13 05:40 | NUR ---
PATIENT AWAKE THROUGHOUT THE NIGHT. PATIENT TALKATIVE AND MAKING JOKES WITH STAFF. IV ACCESS LOST AND UNABLE TO OBTAIN A NEW IV, ATTEMPTED BY SEVERAL STAFF MEMBERS. NO NEW ISSUES NOTED BY THIS NURSE OR REPORTED BY PATIENT.
[2020-08-13 06:28] LABS: MEAN CELL VOLUME 92 fl (80.0-100.0); MEAN CORPUSCULAR HGB CONC 32 g/dl (33.0-37.0); MEAN PLATELET VOLUME 11.2 fl (7.4-10.4); PLATELET COUNT 112 K/mm3 (130-400); RED BLOOD COUNT 2.88 M/mm3 (4.20-5.60); REDCELL DISTRIBUTION WIDTH-CV 15.5 % (11.5-14.5)
[2020-08-13 06:29] LABS: HEMATOCRIT 26.4 % (42.0-52.0); HEMOGLOBIN 8.5 g/dl (13.5-18.0); MEAN CORPUSCULAR HEMOGLOBIN 30 pg (27.0-31.0)
[2020-08-13 06:42] LABS: CALCIUM 8.1 mg/dL (8.4-10.2); CREATININE, serum 3.41 (0.66-1.25); POTASSIUM 3.5 mmol/L (3.4-5.0)
[2020-08-13 06:57] LABS: BAND 36 % (0-10); LYMPHOCYTE 2 % (20.0-51.0); MYELOCYTE 1 % (0-0); NEUTROPHILS 56 % (42.0-75.2)
[2020-08-13 06:58] LABS: HYPOCHROMIA 1+; PLATELET ESTIMATE DECREASED (NORMAL)
--- NOTE | 2020-08-13 07:45 | NUR ---
Shift assessment complete. IV to left forearm infiltrated and removed. Per shift stacker RN report, Zosyn unable to be administered overnight d/t no access after multiple attempts. Hospitalist notified, advised to attempt IV again and consider central line if unsuccsessful. No successful attempts, Kalen ATHLETE MANAGER ordered for midline placement, AIVS notified. Tube feeding running continuously to PEG, site w/o s/s complication. Dressing and 1 stitch pulled out of dialysis catheter, site redressed and Kalen notified. Mitts on bilaterally though pt continuously pulls off. Boots on bilaterally to LEs. Heart RRR. Lungs CTA. O2 at 8lpm HFNC. Pt alert, disoriented. Answers questions minimally. Bed alarm on.
[2020-08-13 07:57] VITALS: BP 130/77; PULSE 82; TEMP 98.4
--- NOTE | 2020-08-13 10:58 | NUR ---
Anesthesia consult called to attempt IV placement. Multiple attempts unsuccessful. Kalen ROSS updated and will keep this RN posted on plan.
[2020-08-13 11:30] VITALS: BP 131/91; PULSE 80; TEMP 98
[2020-08-13 15:36] VITALS: BP 145/80; PULSE 84; TEMP 97.7
--- NOTE | 2020-08-13 15:46 | NUR ---
Customs Entry Writer was contacted by Nolvia at [facility] who advised they would have to decline referral. EVELYN faxed clinical updates to [facility], [facility], and [facility]. EVELYN spoke with Darren at [facility] who advised they could tentatively accept once patient is no longer requiring mitts. EVELYN then spoke with Lorenza at [facility] and advised it is still unclear if patient will need dialysis at discharge. Lorenza advised after looking at updates, it appears patient may require medication, Procrit at discharge. Lorenza advised this medication is very expensive and they could not accept if patient will need this medication.
[2020-08-13 19:36] VITALS: BP 135/81; PULSE 81; TEMP 98.1
[2020-08-14 03:33] VITALS: BP 135/74; PULSE 81; TEMP 98
[2020-08-14 06:56] LABS: MEAN CELL VOLUME 93 fl (80.0-100.0); MEAN CORPUSCULAR HGB CONC 33 g/dl (33.0-37.0); MEAN PLATELET VOLUME 10.8 fl (7.4-10.4); PLATELET COUNT 127 K/mm3 (130-400); RED BLOOD COUNT 2.74 M/mm3 (4.20-5.60); REDCELL DISTRIBUTION WIDTH-CV 15.7 % (11.5-14.5)
[2020-08-14 07:01] LABS: HEMATOCRIT 25.4 % (42.0-52.0); HEMOGLOBIN 8.4 g/dl (13.5-18.0); MEAN CORPUSCULAR HEMOGLOBIN 31 pg (27.0-31.0)
[2020-08-14 07:04] LABS: CALCIUM 8.1 mg/dL (8.4-10.2); CREATININE, serum 4.36 (0.66-1.25); POTASSIUM 3.4 mmol/L (3.4-5.0)
[2020-08-14 07:28] LABS: BAND 17 % (0-10); EOSINOPHIL 3 % (0-4); LYMPHOCYTE 3 % (20.0-51.0); METAMYELOCYTE 6 % (0-0); MYELOCYTE 2 % (0-0); NEUTROPHILS 67 % (42.0-75.2); NUCLEATED RED BLOOD CELL 1 (0-6)
[2020-08-14 07:29] LABS: PLATELET ESTIMATE NORMAL (NORMAL)
--- NOTE | 2020-08-14 07:47 | NUR ---
Shift assessment complete. Pt alert this AM, responds minimally to questions, oriented to self. Tube feeding placed on hold for dialysis and PEG flushed. Incontinent of small amount of stool, bed change and bed bath done. Down to dialysis at this time. Continuing to monitor.
[2020-08-14 08:09] LABS: PATHOLOGY DIFF REVIEW OK
--- NOTE | 2020-08-14 11:12 | NUR ---
Patient tolerated HD tx, removed 2.2 L of fluid today. Attempted to remove 3L of fluid but the patient c/o RLE cramping which resolved with UF off for 15 mins. Next HD tx planned for Monday08/16/2020 @ 0730.
--- NOTE | 2020-08-14 11:19 | NUR ---
Pt back from dialysis, tolerated well per report. Meds crushed and given via PEG tube. Continuous feeding restarted.
[2020-08-14 11:28] VITALS: BP 152/81; PULSE 85; TEMP 98
--- NOTE | 2020-08-14 12:00 | NUR ---
Vega removed and new vega inserted. Pt tolerated well. Mitts removed at this time.
[2020-08-14 15:40] VITALS: BP 161/86; PULSE 88; TEMP 98
--- NOTE | 2020-08-14 16:55 | NUR ---
Passenger Train Braker faxed clinical updates to [facility], [facility] and [facility]. SW spoke with Darren at [facility] who advised they want to see patient stable off mitts before accepting. SW attempted to contact patient's sister, Zainab with an update and left a message.
[2020-08-14 21:20] VITALS: BP 154/83; PULSE 85; TEMP 98
[2020-08-15 00:24] VITALS: BP 160/88; PULSE 81; TEMP 98.2
[2020-08-15 04:58] VITALS: BP 159/80; PULSE 85; TEMP 98.3
--- NOTE | 2020-08-15 05:41 | NUR ---
PATIENT ALERT AND ORIENTED TO SELF. PATIENT DENIES PAIN AND NAUSEA. PATIENT TURNED Q2 THROUGHOUT THE SHIFT. PATIENT AWAKE MOST OF THE SHIFT. NO NEW ISSUES NOTED OR REPORTED BY PATIENT.
--- NOTE | 2020-08-15 06:12 | NUR ---
NO MITTS THROUGHOUT THE SHIFT.
[2020-08-15 07:52] VITALS: BP 160/82; PULSE 87; TEMP 97.5
[2020-08-15 08:06] LABS: MEAN CELL VOLUME 93 fl (80.0-100.0); MEAN CORPUSCULAR HGB CONC 33 g/dl (33.0-37.0); MEAN PLATELET VOLUME 9.6 fl (7.4-10.4); PLATELET COUNT 120 K/mm3 (130-400); RED BLOOD COUNT 2.79 M/mm3 (4.20-5.60); REDCELL DISTRIBUTION WIDTH-CV 15.9 % (11.5-14.5)
[2020-08-15 08:07] LABS: HEMOGLOBIN 8.5 g/dl (13.5-18.0); MEAN CORPUSCULAR HEMOGLOBIN 30 pg (27.0-31.0)
[2020-08-15 08:18] LABS: ALBUMIN 2.9 gm/dL (3.5-5.0); BILIRUBIN,TOTAL 0.6 mg/dL (0.0-1.0); CALCIUM 8.1 mg/dL (8.4-10.2); CREATININE, serum 3.43 (0.66-1.25); POTASSIUM 3.3 mmol/L (3.4-5.0); TOTAL PROTEIN 6.9 gm/dL (6.4-8.2)
--- NOTE | 2020-08-15 09:00 | NUR ---
Assessment complete. PAtient laying in bed awake, but not talkative at this time. Pt nods head to state he is okay and that he is comfortable. Tube feet line had come dislodged from peg tube at this time, tube feed leaking into bed. Line and site were cleaned, bed changed performed. Patient toelrated this well. Pt repositioned at this time. Sanchez catheter patent draining clear yellow urine at this time. Patient is now clean, dry and comfortable, denies other needs. Continunig to monitor. Call light is in reach.
[2020-08-15 09:50] LABS: ANISOCYTOSIS 1+; BAND 25 % (0-10); LYMPHOCYTE 11 % (20.0-51.0); NEUTROPHILS 63 % (42.0-75.2); PLATELET ESTIMATE NORMAL (NORMAL)
[2020-08-15 12:08] VITALS: BP 160/89; PULSE 86; TEMP 98.2
[2020-08-15 17:00] VITALS: BP 155/89; PULSE 87; TEMP 98.2
--- NOTE | 2020-08-15 17:58 | NUR ---
Patient has had a good shift. Mitts have not been used all day. Patient removed gown multiple times through the day but has not pulled at IV or peg tube. Patient has slept on and off for most of the day. Patient has been repositioned multiple times through the day with pillows to decrease pressure points. Intermittent dry cough remains present, provider is aware. Patient has had no complaints of pain or discomfort through the day. Continuing to monitor. Call light is in reach.
[2020-08-15 19:08] VITALS: BP 155/83; PULSE 87; TEMP 97.8
--- NOTE | 2020-08-15 20:01 | NUR ---
PATIENT REMOVED TREATMENT MASK 2 MINUTES AFTER STARTING THE TREATMENT.
[2020-08-16] VITALS (7 sets, daily range): BP systolic 140–156; BP diastolic 76–91; PULSE 89–101; TEMP 97.4–98.7
[2020-08-16 06:22] LABS: MEAN CELL VOLUME 94 fl (80.0-100.0); MEAN CORPUSCULAR HGB CONC 32 g/dl (33.0-37.0); MEAN PLATELET VOLUME 10.2 fl (7.4-10.4); PLATELET COUNT 135 K/mm3 (130-400)
[2020-08-16 06:32] LABS: HEMATOCRIT 28.1 % (42.0-52.0); MEAN CORPUSCULAR HEMOGLOBIN 30 pg (27.0-31.0)
[2020-08-16 06:34] LABS: BILIRUBIN,TOTAL 0.7 mg/dL (0.0-1.0); CALCIUM 8.2 mg/dL (8.4-10.2); CREATININE, serum 4.36 (0.66-1.25); POTASSIUM 3.1 mmol/L (3.4-5.0); TOTAL PROTEIN 6.8 gm/dL (6.4-8.2)
[2020-08-16 07:50] LABS: ANISOCYTOSIS 1+; BAND 9 % (0-10); EOSINOPHIL 2 % (0-4); HYPOCHROMIA 1+; LYMPHOCYTE 6 % (20.0-51.0); METAMYELOCYTE 1 % (0-0); MYELOCYTE 2 % (0-0); NEUTROPHILS 76 % (42.0-75.2); PLATELET ESTIMATE NORMAL (NORMAL)
--- NOTE | 2020-08-16 09:34 | NUR ---
Assessment complete. Patient awake laying in bed at this time. He states he feels good today. He was fidgeting with gown and vega but not aggressively or to the point of removal. Tele was off as well, this was put back on. Patient denies pain, states he is comfortable. Medications administered per PEG with no issues, tube feed continued. Will continue to monitor. Call light is in reach. No other needs were expressed.
[2020-08-16 12:15] LABS: COLLECTION METHOD CLEAN CATCH
[2020-08-16 12:25] LABS: MUCOUS Present /lpf; PH 7 (5-8); SQUAMOUS EPITHELIAL 0-2 /hpf; URINE APPEARANCE Clear; URINE BACTERIA Rare /hpf; URINE BILIRUBIN Negative (NEGATIVE); URINE BLOOD 1+ (NEGATIVE); URINE COLOR Yellow; URINE GLUCOSE 3+ (NEGATIVE); URINE KETONE Negative (NEGATIVE); URINE LEUKOCYTE ESTERASE Negative (NEGATIVE); URINE NITRATE Negative (NEGATIVE); URINE PROTEIN(semi-quant) 2+ (NEGATIVE); URINE RBC 20-50 /hpf; URINE UROBILINOGEN Negative (NEGATIVE)
--- NOTE | 2020-08-16 17:47 | NUR ---
Patient had an uneventful shift. No complaints of pain or discomfort. Sanchez patent draining clear yellow urine. Oral hygiene performed as well as cath care. Patient talkative at some points in the day but very quiet at other times, always plesant. Peg Tube feeding continues to run per protocol, no issues. Continuing to montior. Call light is in reach.
[2020-08-17 03:41] VITALS: BP 146/79; PULSE 97; TEMP 98.4
--- NOTE | 2020-08-17 06:23 | NUR ---
PATIENT SLEPT ON AND OFF THROUGHOUT THE NIGHT. TUBE FEEDING CHANGED AT THIS TIME. NO NEW CONCERNS NOTED OR REPORTED BY PATIENT.
[2020-08-17 06:24] LABS: CALCIUM 7.9 mg/dL (8.4-10.2); CREATININE, serum 5.11 (0.66-1.25)
[2020-08-17 07:28] VITALS: BP 127/74; PULSE 100; TEMP 99.1
--- NOTE | 2020-08-17 07:59 | NUR ---
SPOKE WITH [employer] FOR LYLY, PT CAN GET LABS DRAWN DURING DIALYSIS LATER THIS AM.
--- NOTE | 2020-08-17 09:48 | NUR ---
PT AWAITING PLACEMENT TO [facility] OR [facility] FROM [employer] VICE PRESIDENT WORKING ON PLACEMENT.
--- NOTE | 2020-08-17 09:50 | NUR ---
AGREE WITH NELY COLON NURSE'S ASSESSMENTS CHARTED.
--- NOTE | 2020-08-17 11:05 | NUR ---
SPEECH THERAPY WORKING WITH PATIENT AT THIS TIME.
[2020-08-17 11:47] VITALS: BP 125/72; PULSE 99; TEMP 99
[2020-08-17 13:27] LABS: MEAN CELL VOLUME 92 fl (80.0-100.0); MEAN CORPUSCULAR HGB CONC 33 g/dl (33.0-37.0); MEAN PLATELET VOLUME 10.5 fl (7.4-10.4); PLATELET COUNT 125 K/mm3 (130-400); RED BLOOD COUNT 2.74 M/mm3 (4.20-5.60); REDCELL DISTRIBUTION WIDTH-CV 16.7 % (11.5-14.5)
[2020-08-17 13:35] LABS: HEMATOCRIT 25.2 % (42.0-52.0); HEMOGLOBIN 8.3 g/dl (13.5-18.0); MEAN CORPUSCULAR HEMOGLOBIN 30 pg (27.0-31.0)
[2020-08-17 13:52] LABS: BAND 1 % (0-10); HYPOCHROMIA 1+; LYMPHOCYTE 3 % (20.0-51.0); NEUTROPHILS 91 % (42.0-75.2)
[2020-08-17 13:53] LABS: ANISOCYTOSIS 1+; PLATELET ESTIMATE DECREASED (NORMAL); TOXIC GRANULATION PRESENT
--- NOTE | 2020-08-17 15:22 | NUR ---
Contacted Zainab regarding palliative care consult. She reports that she would like to see her brother eyal--after work, and see how he is doing. She is very concerned that he has had a cascade of health issues and not sure that they will choose to continue dialysis but can't make that decision until she sees him. I provided contact information and told her I would be happy to talk with her after he visit with Victor Manuel to discuss options based on what they decide. She did not feel she could talk about this without first having seen her brother and will not be at the hospital for a while.
[2020-08-17 15:56] VITALS: BP 144/76; PULSE 94; TEMP 98.2
--- NOTE | 2020-08-17 16:02 | NUR ---
Electrotype Servicer faxed updates to [facility] [place], and [employer] [employer]. Hospitalist advised SW that he would put in a palliative consult for patient. Patient's sister, Zainab to visit after dialysis today to discuss goals of care.
--- NOTE | 2020-08-17 17:10 | NUR ---
Patient tolerated HD tx & removed 1.1L of fluid due to low Bp X2 82/52 & 87/54. Lower Bps resolved with decreased fluid removal. Next HD tx planned for Monday08/19/20 @ 0800.
[2020-08-17 20:46] VITALS: BP 151/84; PULSE 100; TEMP 97.9
--- NOTE | 2020-08-17 22:49 | NUR ---
Patient laying in bed upon enter the room. Patient alert and oriented to self only. Patient denies any pain or discomfort. Denies SOB or dyspnea. Occasional non-productive cough noted. PEG tube feeding running at 53ml/hr. HOB maintains elevated above 30 degrees. Scheduled meds crushed and administered via PEG without difficulty. Right upper chest dialysis site C/D/I. Call light within reach. Patient denies any needs at this time.
[2020-08-17 23:46] VITALS: BP 124/68; PULSE 85; TEMP 97.6
[2020-08-18 04:00] VITALS: BP 137/72; PULSE 84; TEMP 99
--- NOTE | 2020-08-18 05:59 | NUR ---
Patient tolerated tube feeding. HOB maintains elevated above 30 degress throughout the night. Patient had incontinent stool x2. Incontinent brief changed, linda-care and vega care provided. Fall precaution maintained. Will give report to day shift nurse.
[2020-08-18 07:30] VITALS: BP 107/60; PULSE 91; TEMP 98.9
--- NOTE | 2020-08-18 09:15 | NUR ---
PATIENT LETHARGIC, NOT RESPONDING MORE THAN GRUNTS, HOWEVER DOES OPEN HIS EYES WHEN ADDRESSED. PATIENT IOS NOT WEARING MITTS AND IS COOPERATIVE WITH ALL ACTIVITIES; NOT PULLING AT ANY TUBES. NO OBJECTIVE S/S OF PAIN; NO APPARENT NEEDS AT THIS TIME.
--- NOTE | 2020-08-18 09:30 | NUR ---
I called CRISTEL [facility] this morning to see how her visit went and if she had any questions. She had refused to talk about palliative care until she saw her brother last night. Now she tells me that they are going to continue with dialysis and will be moving him to a m[facility] today if everything can be finalized. She denies questions about palliative care or need to talk further and stated they had made their decision to proceed with ongoing dialysis.
[2020-08-18 11:19] VITALS: BP 133/79; PULSE 93; TEMP 98.2
[2020-08-18] MEDS ORDERED: NOVOLOG 100U100 U/M1 SQ (12:07)
[2020-08-18] MEDS ORDERED: IPRATROPIUM BROM3 M1 IH (12:21)
[2020-08-18] MEDS ORDERED: REGLAN 5MG T5 MG/TAB PO (12:22)
[2020-08-18] MEDS ORDERED: AMOXICILLIN/CLA1 TA1 PEG (12:23)
[2020-08-18] MEDS ORDERED: LEVAQUIN 5500 MG/TA1 PEG (12:24)
[2020-08-18] MEDS ORDERED: NORVASC2.5 MG PEG (12:24)
[2020-08-18 12:45] VITALS: BP 133/79; PULSE 93; TEMP 98.2
--- NOTE | 2020-08-18 14:34 | NUR ---
Travel Freight And Passenger Agent attended clinical rounds with the team. EVELYN collaborated with Stephani Palliative RN who advised patient and family are not interested in palliative care at this time and want to continue with dialysis. EVELYN faxed clinical updates to Darren at [facility] and Andrew at [facility]. Darren advised they are good to accept today. EVELYN collaborated with Hospitalist who advised patient is ready for discharge today. EVELYN contacted patient's sister, Zainab who is agreeable to discharge to accepting facility, [facility]. Zainab reports she has already been in contact with Darren from [facility]. Transport time was set for 1430. EVELYN faxed discharge orders and negative COVID results to Darren at [facility]. EVELYN notified Andrew at [facility] and Lorenza at [facility] of patient discharge.
[2020-08-18 14:53] LABS: MEAN CELL VOLUME 93 fl (80.0-100.0); MEAN CORPUSCULAR HGB CONC 32 g/dl (33.0-37.0); MEAN PLATELET VOLUME 10.2 fl (7.4-10.4); PLATELET COUNT 152 K/mm3 (130-400); RED BLOOD COUNT 2.87 M/mm3 (4.20-5.60); REDCELL DISTRIBUTION WIDTH-CV 16.2 % (11.5-14.5)
--- NOTE | 2020-08-18 14:55 | NUR ---
Patient into own w/c per bebeto lift for transfer to [facility]. tolerated transition without problem. all personal items sent with patient.
[2020-08-18 15:01] LABS: ALBUMIN 3.1 gm/dL (3.5-5.0); BILIRUBIN,TOTAL 0.5 mg/dL (0.0-1.0); CALCIUM 8.2 mg/dL (8.4-10.2); CREATININE, serum 3.85 (0.66-1.25); MAGNESIUM 2.3 mg/dL (1.6-2.3); POTASSIUM 3.4 mmol/L (3.4-5.0); TOTAL PROTEIN 7.4 gm/dL (6.4-8.2)
[2020-08-18 15:05] LABS: HEMATOCRIT 26.8 % (42.0-52.0); HEMOGLOBIN 8.6 g/dl (13.5-18.0); MEAN CORPUSCULAR HEMOGLOBIN 30 pg (27.0-31.0)
[2020-08-18 16:12] LABS: BAND 13 % (0-10); EOSINOPHIL 1 % (0-4); LYMPHOCYTE 7 % (20.0-51.0); NEUTROPHILS 73 % (42.0-75.2)
[2020-08-18 16:14] LABS: ANISOCYTOSIS 1+; HYPOCHROMIA 1+; PLATELET ESTIMATE NORMAL (NORMAL)
[2020-11-10] MEDS ORDERED: INSULIN AS100 UNIT/2 SQ (09:56)
[2020-11-10] MEDS ORDERED: DRIZALMA SPRINK20 MG PO (09:56)
[2020-11-10] MEDS ORDERED: LIPITOR 80MG80 MG PO (09:57)
[2020-11-10] MEDS ORDERED: PRILOSEC 20MG20 MG PO (09:57)
[2020-11-10] MEDS ORDERED: NYAMYC100000 U/G TP (09:58)
[2020-11-10] MEDS ORDERED: COZAAR 25MG25 MG/TAB PO (09:58)
[2020-11-13] MEDS ORDERED: APRESOLINE 10MG10 MG PEG (13:24)
[2020-11-13] MEDS ORDERED: COZAAR 25MG25 MG/TAB PO (13:25)
[2020-11-13] MEDS ORDERED: B-121000 MCG PO (13:26)
[2020-11-13] MEDS ORDERED: CIPRO 500MG TA500 MG PO (13:26)
[2020-11-13] MEDS ORDERED: NATURE'S BLEND100 M2 PO (13:27)
[2020-11-13] MEDS ORDERED: FOLIC ACID 11 MG/TA1 PO (13:27)
[2021-03-03] MEDS ORDERED: DRIZALMA SPRINK30 MG PO (18:03)
[2021-03-03] MEDS ORDERED: LEVEMIR100 U/ML SQ (18:08)
[2021-03-03] MEDS ORDERED: COZAAR100 MG PO (18:09)
[2021-03-03] MEDS ORDERED: LOPRESSOR 225 MG/TAB PO (18:11)
[2021-03-03] MEDS ORDERED: ASPIRIN 81M81 MG/TA2 PO (18:17)
[2021-03-03] MEDS ORDERED: FLORINEF ACETA0.1 MG PO (18:18)
[2021-03-03] MEDS ORDERED: PHOSLO667 MG PO (18:18)
[2021-03-03] MEDS ORDERED: LAC-HYDRIN121 TP (18:20)
[2021-03-03] MEDS ORDERED: CIPRO 500MG TA500 MG PO (18:20)
[2021-03-03] MEDS ORDERED: BIOTENE DRY M1000 ML MM (18:21)
[2021-03-08] MEDS ORDERED: CIPRO 500MG TA500 MG PO (12:23)
[2021-03-08] MEDS ORDERED: VANCOCIN HCL500 MG IV (12:26)
== END 2020-08-18 15:00 | DRG 673 ==
LOC: MEDICAL 14:16
PROVIDERS: Internal Medicine; Internal Medicine Gastroenterology; Internal Medicine Nephrology; Physician Assistant; ADMIT Student in an Organized Health Care Education/Training Program
PROC: 0JH63XZ Insertion of Tunneled Vascular Access Device into Chest Subcutaneous Tissue and Fascia, Percutaneous Approach (ICD-10-PCS; principal; 2020-08-10)
PROC: 02H633Z Insertion of Infusion Device into Right Atrium, Percutaneous Approach (ICD-10-PCS; 2020-08-10)
DX: N17.9 Acute kidney failure, unspecified (principal); J96.01 Acute respiratory failure with hypoxia; N39.0 Urinary tract infection, site not specified; I13.0 Hypertensive heart and chronic kidney disease with heart failure and stage 1 through stage 4 chronic kidney disease, or unspecified chronic kidney disease; E27.1 Primary adrenocortical insufficiency; E87.0 Hyperosmolality and hypernatremia; I69.954 Hemiplegia and hemiparesis following unspecified cerebrovascular disease affecting left non-dominant side; Q21.1 Atrial septal defect; J98.11 Atelectasis; Z66 Do not resuscitate; I50.9 Heart failure, unspecified; I25.10 Atherosclerotic heart disease of native coronary artery without angina pectoris; F32.9 Major depressive disorder, single episode, unspecified; N18.4 Chronic kidney disease, stage 4 (severe); E11.22 Type 2 diabetes mellitus with diabetic chronic kidney disease; D63.1 Anemia in chronic kidney disease; E87.5 Hyperkalemia; D69.6 Thrombocytopenia, unspecified; E78.5 Hyperlipidemia, unspecified; Z20.822 Contact with and (suspected) exposure to COVID-19; D50.9 Iron deficiency anemia, unspecified; R13.19 Other dysphagia; D72.829 Elevated white blood cell count, unspecified; T38.0X5A Adverse effect of glucocorticoids and synthetic analogues, initial encounter; I95.1 Orthostatic hypotension; E83.51 Hypocalcemia; E88.09 Other disorders of plasma-protein metabolism, not elsewhere classified; Z93.1 Gastrostomy status; R94.5 Abnormal results of liver function studies; E87.6 Hypokalemia; E11.649 Type 2 diabetes mellitus with hypoglycemia without coma; E86.0 Dehydration; I25.2 Old myocardial infarction; F17.210 Nicotine dependence, cigarettes, uncomplicated; Z95.5 Presence of coronary angioplasty implant and graft; Z79.82 Long term (current) use of aspirin; Z79.4 Long term (current) use of insulin
CPT/HCPCS: 99223; 99232-AI; 99233-AI; J0692; J0696; J1644; J1815; J1940; J2060; J2543; J2916; J3480; J7030; P9016; Q5105; Q5106

== ENCOUNTER → 2020-08-26 | Outpatient (CLI) | payer MEDICARE, MEDICAID ==
[~2020-08-26] MED LIST changes: +AMOXICILLIN/CLA1 TA1 PEG; +APRESOLINE 10MG10 MG PEG; +B-121000 MCG PO; +BACTROBAN15 GM TOP; +BIOTENE DRY M1000 ML; +BIOTENE DRY M1000 ML MM; +BUSPAR DIVIDOSE15 MG PO; +CARDURA 1MG1 MG PO; +CATAPRES 0.1MG0.1 MG PO; +CIPRO 500MG TA500 MG PO; +COREG 25MG25 MG/TAB PO; +COZAAR 25MG25 MG/TAB PO; +COZAAR100 MG PO; +CYMBALTA 20MG20 MG PEG; +CYMBALTA 30MG30 MG PO; +DRIZALMA SPRINK20 MG PO; +DRIZALMA SPRINK30 MG PO; +FLORINEF ACETA0.1 MG PEG; +FOLIC ACID 11 MG/TA1 PO; +INSULIN AS100 UNIT/2 SQ; +IPRATROPIUM BROM3 M1 IH; +KEPPRA 500MG500 MG PO; +LAC-HYDRIN121 TP; +LEVAQUIN 5500 MG/TA1 PEG; +LEVEMIR100 U/ML SQ; +LIPITOR 80MG80 MG PO; +LOPRESSOR 225 MG/TAB PO; +LYRICA 25MG CAP25 MG PEG; +NATURE'S BLEND100 M2 PO; +NEXIUM ORA40 MG/Pack PEG; +NORVASC 10MG10 MG PO; +NORVASC2.5 MG PEG; +NORVASC2.5 MG PO; +NOVOLOG 100U100 U/M1 SQ; +NYAMYC100000 U/G TP; +OMNICEF 300MG300 MG PO; +PHOSLO667 MG PO; +PRILOSEC 20MG20 MG PO; +PRINCIPEN500 MG PEG; +REGLAN 5MG T5 MG/TAB PO; +TYLENOL 325MG325 MG PO; +VANCOCIN HCL500 MG IV; +ZETIA 10MG TAB10 MG PEG; +ZOFRAN 4MG T4 MG/TAB PO
[2020-08-26 22:13] LABS: MEAN CELL VOLUME 96 fl (80.0-100.0); MEAN CORPUSCULAR HGB CONC 30 g/dl (33.0-37.0); MEAN PLATELET VOLUME 10.5 fl (7.4-10.4); PLATELET COUNT 435 K/mm3 (130-400); RED BLOOD COUNT 3.02 M/mm3 (4.20-5.60); REDCELL DISTRIBUTION WIDTH-CV 15.9 % (11.5-14.5)
[2020-08-26 22:15] LABS: CREATININE, serum 5.31 (0.66-1.25); POTASSIUM 3.8 mmol/L (3.4-5.0)
[2020-08-26 22:16] LABS: HEMATOCRIT 28.9 % (42.0-52.0); HEMOGLOBIN 8.7 g/dl (13.5-18.0); MEAN CORPUSCULAR HEMOGLOBIN 29 pg (27.0-31.0)
[2020-08-26 22:54] LABS: BAND 6 % (0-10); EOSINOPHIL 1 % (0-4); LYMPHOCYTE 4 % (20.0-51.0); NEUTROPHILS 83 % (42.0-75.2); NUCLEATED RED BLOOD CELL 1 (0-6); PLATELET ESTIMATE INCREASED (NORMAL)
[2020-08-26 22:55] LABS: ANISOCYTOSIS 1+; HYPOCHROMIA 3+
== END ==
LOC: ZCOL.LAB 21:55
PROVIDERS: Internal Medicine
DX: Z01.89 Encounter for other specified special examinations (principal)

== ENCOUNTER 2020-08-28 06:14 | Outpatient (CLI) | payer MEDICARE, MEDICAID ==
[~2020-08-28] VITALS: Ht 167.7 cm; Wt 69.4 kg
[2020-08-28] VITALS (8 sets, daily range): BP systolic 124–160; BP diastolic 74–86; PULSE 83–92; TEMP 97.7–98
[~2020-08-28 06:14] MED LIST changes: -APRESOLINE 10MG10 MG PEG; -B-121000 MCG PO; -BACTROBAN15 GM TOP; -BIOTENE DRY M1000 ML MM; -CATAPRES 0.1MG0.1 MG PO; -CIPRO 500MG TA500 MG PO; -COZAAR 25MG25 MG/TAB PO; -COZAAR100 MG PO; -CYMBALTA 30MG30 MG PO; -DRIZALMA SPRINK20 MG PO; -DRIZALMA SPRINK30 MG PO; -FOLIC ACID 11 MG/TA1 PO; -INSULIN AS100 UNIT/2 SQ; -KEPPRA 500MG500 MG PO; -LAC-HYDRIN121 TP; -LIPITOR 80MG80 MG PO; -LOPRESSOR 225 MG/TAB PO; -NATURE'S BLEND100 M2 PO; -NORVASC2.5 MG PO; -NYAMYC100000 U/G TP; -OMNICEF 300MG300 MG PO; -PHOSLO667 MG PO; -PRILOSEC 20MG20 MG PO; -PRINCIPEN500 MG PEG; -VANCOCIN HCL500 MG IV; -ZOFRAN 4MG T4 MG/TAB PO
[2020-08-28] MEDS ORDERED: REGLAN 5MG T5 MG/TAB PO (07:50)
[2020-08-28] MEDS ORDERED: IPRATROPIUM BROM3 M1 IH (07:51)
[2020-08-28] MEDS ORDERED: NORVASC2.5 MG PO (07:52)
[2020-08-28] MEDS ORDERED: LIPITOR 80MG80 MG PO (08:22)
--- NOTE | 2020-08-28 11:00 | NUR ---
INT discontinued intact. VSS. [facility] transportation here to take pt .
[2020-11-10] MEDS ORDERED: DRIZALMA SPRINK20 MG PO (09:56)
[2020-11-10] MEDS ORDERED: INSULIN AS100 UNIT/2 SQ (09:56)
[2020-11-10] MEDS ORDERED: PRILOSEC 20MG20 MG PO (09:57)
[2020-11-10] MEDS ORDERED: LIPITOR 80MG80 MG PO (09:57)
[2020-11-10] MEDS ORDERED: COZAAR 25MG25 MG/TAB PO (09:58)
[2020-11-10] MEDS ORDERED: NYAMYC100000 U/G TP (09:58)
[2020-11-13] MEDS ORDERED: APRESOLINE 10MG10 MG PEG (13:24)
[2020-11-13] MEDS ORDERED: COZAAR 25MG25 MG/TAB PO (13:25)
[2020-11-13] MEDS ORDERED: CIPRO 500MG TA500 MG PO (13:26)
[2020-11-13] MEDS ORDERED: B-121000 MCG PO (13:26)
[2020-11-13] MEDS ORDERED: NATURE'S BLEND100 M2 PO (13:27)
[2020-11-13] MEDS ORDERED: FOLIC ACID 11 MG/TA1 PO (13:27)
[2021-03-03] MEDS ORDERED: DRIZALMA SPRINK30 MG PO (18:03)
[2021-03-03] MEDS ORDERED: LEVEMIR100 U/ML SQ (18:08)
[2021-03-03] MEDS ORDERED: COZAAR100 MG PO (18:09)
[2021-03-03] MEDS ORDERED: LOPRESSOR 225 MG/TAB PO (18:11)
[2021-03-03] MEDS ORDERED: ASPIRIN 81M81 MG/TA2 PO (18:17)
[2021-03-03] MEDS ORDERED: FLORINEF ACETA0.1 MG PO (18:18)
[2021-03-03] MEDS ORDERED: PHOSLO667 MG PO (18:18)
[2021-03-03] MEDS ORDERED: LAC-HYDRIN121 TP (18:20)
[2021-03-03] MEDS ORDERED: CIPRO 500MG TA500 MG PO (18:20)
[2021-03-03] MEDS ORDERED: BIOTENE DRY M1000 ML MM (18:21)
[2021-03-08] MEDS ORDERED: CIPRO 500MG TA500 MG PO (12:23)
[2021-03-08] MEDS ORDERED: VANCOCIN HCL500 MG IV (12:26)
== END 2020-08-28 11:30 | disposition home or self-care (01) ==
LOC: COL.CAR 06:14
DX: T82.898A Other specified complication of vascular prosthetic devices, implants and grafts, initial encounter (principal); N18.6 End stage renal disease; E11.22 Type 2 diabetes mellitus with diabetic chronic kidney disease; I51.9 Heart disease, unspecified; Z79.82 Long term (current) use of aspirin; Z99.2 Dependence on renal dialysis; Z20.822 Contact with and (suspected) exposure to COVID-19; Z79.4 Long term (current) use of insulin; Z79.899 Other long term (current) drug therapy; Z79.52 Long term (current) use of systemic steroids; Z79.890 Hormone replacement therapy; Z87.891 Personal history of nicotine dependence
CPT/HCPCS: J1644

== ENCOUNTER 2020-09-01 18:45 | Emergency (ER) | payer MEDICARE, MEDICAID ==
[~2020-09-01] VITALS: Ht 177.8 cm; Wt 61.8 kg
[~2020-09-01 18:45] MED LIST changes: -APRESOLINE 10MG10 MG PEG; -B-121000 MCG PO; -BACTROBAN15 GM TOP; -BIOTENE DRY M1000 ML MM; -CATAPRES 0.1MG0.1 MG PO; -CIPRO 500MG TA500 MG PO; -COZAAR 25MG25 MG/TAB PO; -COZAAR100 MG PO; -CYMBALTA 30MG30 MG PO; -DRIZALMA SPRINK20 MG PO; -DRIZALMA SPRINK30 MG PO; -FOLIC ACID 11 MG/TA1 PO; -INSULIN AS100 UNIT/2 SQ; -KEPPRA 500MG500 MG PO; -LAC-HYDRIN121 TP; -LOPRESSOR 225 MG/TAB PO; -NATURE'S BLEND100 M2 PO; -NYAMYC100000 U/G TP; -OMNICEF 300MG300 MG PO; -PHOSLO667 MG PO; -PRILOSEC 20MG20 MG PO; -PRINCIPEN500 MG PEG; -VANCOCIN HCL500 MG IV; -ZOFRAN 4MG T4 MG/TAB PO
[2020-09-01 20:16] LABS: MEAN CELL VOLUME 90 fl (80.0-100.0); MEAN CORPUSCULAR HGB CONC 31 g/dl (33.0-37.0); MEAN PLATELET VOLUME 9.1 fl (7.4-10.4); PLATELET COUNT 438 K/mm3 (130-400); RED BLOOD COUNT 3.42 M/mm3 (4.20-5.60); REDCELL DISTRIBUTION WIDTH-CV 15.7 % (11.5-14.5)
[2020-09-01 20:17] LABS: HEMATOCRIT 30.8 % (42.0-52.0); HEMOGLOBIN 9.5 g/dl (13.5-18.0); MEAN CORPUSCULAR HEMOGLOBIN 28 pg (27.0-31.0)
[2020-09-01 20:35] LABS: INR 1.1 (0.8-3.0); PROTHROMBIN TIME 12.7 SECONDS (9.7-12.8)
[2020-09-01 20:48] LABS: ALBUMIN 3.1 gm/dL (3.5-5.0); BILIRUBIN,TOTAL 0.4 mg/dL (0.0-1.0); CALCIUM 8.5 mg/dL (8.4-10.2); CREATININE, serum 2.05 (0.66-1.25); POTASSIUM 3.3 mmol/L (3.4-5.0); TOTAL PROTEIN 8.2 gm/dL (6.4-8.2)
[2020-09-01 21:11] LABS: BAND 10 % (0-10); EOSINOPHIL 4 % (0-4); LYMPHOCYTE 1 % (20.0-51.0); METAMYELOCYTE 2 % (0-0); NEUTROPHILS 79 % (42.0-75.2)
[2020-09-01 21:18] LABS: COLLECTION METHOD CLEAN CATCH
[2020-09-01 21:28] LABS: MUCOUS Present /lpf; PH 6 (5-8); SQUAMOUS EPITHELIAL None Seen /hpf; URINE APPEARANCE Turbid; URINE BACTERIA None Seen /hpf; URINE BILIRUBIN Negative (NEGATIVE); URINE BLOOD 1+ (NEGATIVE); URINE COLOR Amber; URINE GLUCOSE 1+ (NEGATIVE); URINE KETONE Trace (NEGATIVE); URINE LEUKOCYTE ESTERASE 1+ (NEGATIVE); URINE NITRATE Negative (NEGATIVE); URINE PROTEIN(semi-quant) 2+ (NEGATIVE); URINE RBC >50 /hpf; URINE UROBILINOGEN Negative (NEGATIVE)
[2020-09-01 21:58] VITALS: BP 167/90; PULSE 82; TEMP 97.4
[2020-11-10] MEDS ORDERED: INSULIN AS100 UNIT/2 SQ (09:56)
[2020-11-10] MEDS ORDERED: DRIZALMA SPRINK20 MG PO (09:56)
[2020-11-10] MEDS ORDERED: LIPITOR 80MG80 MG PO (09:57)
[2020-11-10] MEDS ORDERED: PRILOSEC 20MG20 MG PO (09:57)
[2020-11-10] MEDS ORDERED: NYAMYC100000 U/G TP (09:58)
[2020-11-10] MEDS ORDERED: COZAAR 25MG25 MG/TAB PO (09:58)
[2020-11-13] MEDS ORDERED: APRESOLINE 10MG10 MG PEG (13:24)
[2020-11-13] MEDS ORDERED: COZAAR 25MG25 MG/TAB PO (13:25)
[2020-11-13] MEDS ORDERED: B-121000 MCG PO (13:26)
[2020-11-13] MEDS ORDERED: CIPRO 500MG TA500 MG PO (13:26)
[2020-11-13] MEDS ORDERED: NATURE'S BLEND100 M2 PO (13:27)
[2020-11-13] MEDS ORDERED: FOLIC ACID 11 MG/TA1 PO (13:27)
[2021-03-03] MEDS ORDERED: DRIZALMA SPRINK30 MG PO (18:03)
[2021-03-03] MEDS ORDERED: LEVEMIR100 U/ML SQ (18:08)
[2021-03-03] MEDS ORDERED: COZAAR100 MG PO (18:09)
[2021-03-03] MEDS ORDERED: LOPRESSOR 225 MG/TAB PO (18:11)
[2021-03-03] MEDS ORDERED: ASPIRIN 81M81 MG/TA2 PO (18:17)
[2021-03-03] MEDS ORDERED: FLORINEF ACETA0.1 MG PO (18:18)
[2021-03-03] MEDS ORDERED: PHOSLO667 MG PO (18:18)
[2021-03-03] MEDS ORDERED: CIPRO 500MG TA500 MG PO (18:20)
[2021-03-03] MEDS ORDERED: LAC-HYDRIN121 TP (18:20)
[2021-03-03] MEDS ORDERED: BIOTENE DRY M1000 ML MM (18:21)
[2021-03-08] MEDS ORDERED: CIPRO 500MG TA500 MG PO (12:23)
[2021-03-08] MEDS ORDERED: VANCOCIN HCL500 MG IV (12:26)
== END 2020-09-01 21:58 | disposition home or self-care (01) ==
LOC: COL.ER 18:45
PROVIDERS: Emergency Medicine
DX: I13.0 Hypertensive heart and chronic kidney disease with heart failure and stage 1 through stage 4 chronic kidney disease, or unspecified chronic kidney disease (principal); D72.829 Elevated white blood cell count, unspecified; K94.23 Gastrostomy malfunction; N18.4 Chronic kidney disease, stage 4 (severe); E78.5 Hyperlipidemia, unspecified; E11.9 Type 2 diabetes mellitus without complications; E27.1 Primary adrenocortical insufficiency; D50.9 Iron deficiency anemia, unspecified; I25.10 Atherosclerotic heart disease of native coronary artery without angina pectoris; I25.2 Old myocardial infarction; F32.9 Major depressive disorder, single episode, unspecified; Z87.891 Personal history of nicotine dependence; Z86.73 Personal history of transient ischemic attack (TIA), and cerebral infarction without residual deficits; Z79.4 Long term (current) use of insulin; Z79.82 Long term (current) use of aspirin
CPT/HCPCS: 31006

== ENCOUNTER → 2020-09-01 | Outpatient (CLI) | payer MEDICARE, MEDICAID ==
[~2020-09-01] MED LIST changes: +APRESOLINE 10MG10 MG PEG; +B-121000 MCG PO; +BACTROBAN15 GM TOP; +BIOTENE DRY M1000 ML MM; +CATAPRES 0.1MG0.1 MG PO; +CIPRO 500MG TA500 MG PO; +COZAAR 25MG25 MG/TAB PO; +COZAAR100 MG PO; +CYMBALTA 30MG30 MG PO; +DRIZALMA SPRINK20 MG PO; +DRIZALMA SPRINK30 MG PO; +FOLIC ACID 11 MG/TA1 PO; +INSULIN AS100 UNIT/2 SQ; +KEPPRA 500MG500 MG PO; +LAC-HYDRIN121 TP; +LIPITOR 80MG80 MG PO; +LOPRESSOR 225 MG/TAB PO; +NATURE'S BLEND100 M2 PO; +NORVASC2.5 MG PO; +NYAMYC100000 U/G TP; +OMNICEF 300MG300 MG PO; +PHOSLO667 MG PO; +PRILOSEC 20MG20 MG PO; +PRINCIPEN500 MG PEG; +VANCOCIN HCL500 MG IV; +ZOFRAN 4MG T4 MG/TAB PO
== END ==
LOC: ZCOL.LAB 19:11
DX: B99.9 Unspecified infectious disease (principal)

== ENCOUNTER → 2020-09-02 | Outpatient (CLI) | payer MEDICARE, MEDICAID ==
[~2020-09-02] MED LIST changes: +APRESOLINE 10MG10 MG PEG; +B-121000 MCG PO; +BACTROBAN15 GM TOP; +BIOTENE DRY M1000 ML MM; +CATAPRES 0.1MG0.1 MG PO; +CIPRO 500MG TA500 MG PO; +COZAAR 25MG25 MG/TAB PO; +COZAAR100 MG PO; +CYMBALTA 30MG30 MG PO; +DRIZALMA SPRINK20 MG PO; +DRIZALMA SPRINK30 MG PO; +FOLIC ACID 11 MG/TA1 PO; +INSULIN AS100 UNIT/2 SQ; +KEPPRA 500MG500 MG PO; +LAC-HYDRIN121 TP; +LOPRESSOR 225 MG/TAB PO; +NATURE'S BLEND100 M2 PO; +NYAMYC100000 U/G TP; +OMNICEF 300MG300 MG PO; +PHOSLO667 MG PO; +PRILOSEC 20MG20 MG PO; +PRINCIPEN500 MG PEG; +VANCOCIN HCL500 MG IV; +ZOFRAN 4MG T4 MG/TAB PO
== END ==
LOC: COL.RAD 08-31 13:30
DX: I61.9 Nontraumatic intracerebral hemorrhage, unspecified (principal); G93.89 Other specified disorders of brain

== ENCOUNTER → 2020-09-09 | Outpatient (CLI) | payer OTHER, MEDICAID | LOC: COL.RAD 13:37 | DX: J90 Pleural effusion, not elsewhere classified (principal); J98.11 Atelectasis ==

== ENCOUNTER → 2020-09-25 | Outpatient (CLI) | payer OTHER, MEDICAID ==
[~2020-09-25] VITALS: Ht 177.8 cm; Wt 63.3 kg
[2020-09-25 10:10] VITALS: BP 149/88; PULSE 83
--- NOTE | 2020-09-25 11:00 | NUR ---
pt taken to ultrasound via cart, was able to sit on side of cart, ultrasound completed, procedure cancelled due minimal fluid found, back to holding area, transfered to w/c, pt has no c/o or request, called Nursing facility for transport and report of cancellation of procedure Pt discharged to halfway van
== END ==
LOC: COL.RAD 09:28
DX: J90 Pleural effusion, not elsewhere classified (principal)

== ENCOUNTER → 2020-10-12 | Outpatient (REF) ==
[2020-10-12 22:25] LABS: COLLECTION METHOD CATHETER
[2020-10-12 22:35] LABS: BUDDING YEAST Present /hpf; PH 6 (5-8); SQUAMOUS EPITHELIAL None Seen /hpf; URINE APPEARANCE Turbid; URINE BACTERIA None Seen /hpf; URINE BILIRUBIN Negative (NEGATIVE); URINE BLOOD 1+ (NEGATIVE); URINE COLOR Yellow; URINE GLUCOSE 3+ (NEGATIVE); URINE KETONE Negative (NEGATIVE); URINE LEUKOCYTE ESTERASE 3+ (NEGATIVE); URINE NITRATE Negative (NEGATIVE); URINE PROTEIN(semi-quant) 3+ (NEGATIVE); URINE RBC >50 /hpf; URINE UROBILINOGEN Negative (NEGATIVE)
== END ==
LOC: ZLAB.STJ 22:24
PROVIDERS: Internal Medicine
DX: N39.0 Urinary tract infection, site not specified (principal)

== ENCOUNTER → 2020-10-16 | Outpatient (REF) ==
[2020-10-16 15:02] LABS: ALBUMIN 4.1 gm/dL (3.5-5.0); BILIRUBIN,TOTAL 0.4 mg/dL (0.0-1.0); CALCIUM 9.2 mg/dL (8.4-10.2); CREATININE, serum 1.26 (0.66-1.25); POTASSIUM 3.9 mmol/L (3.4-5.0)
[2020-10-16 15:33] LABS: THYROID STIMULATING HORMONE 2.37 uIU/mL (0.465-4.680)
== END ==
LOC: ZLAB.STJ 14:45
PROVIDERS: Internal Medicine
DX: I12.9 Hypertensive chronic kidney disease with stage 1 through stage 4 chronic kidney disease, or unspecified chronic kidney disease (principal); N18.4 Chronic kidney disease, stage 4 (severe); N17.9 Acute kidney failure, unspecified

== ENCOUNTER → 2020-10-20 | Outpatient (CLI) | payer OTHER, MEDICAID | LOC: COL.RAD 12:25 | DX: R13.10 Dysphagia, unspecified (principal) ==

== ENCOUNTER 2020-10-23 17:13 | Emergency (ER) | payer MEDICARE, MEDICAID ==
[~2020-10-23] VITALS: Ht 170.2 cm; Wt 65.0 kg
[~2020-10-23 17:13] MED LIST changes: -APRESOLINE 10MG10 MG PEG; -B-121000 MCG PO; -BACTROBAN15 GM TOP; -BIOTENE DRY M1000 ML MM; -CATAPRES 0.1MG0.1 MG PO; -CIPRO 500MG TA500 MG PO; -COZAAR 25MG25 MG/TAB PO; -COZAAR100 MG PO; -CYMBALTA 30MG30 MG PO; -DRIZALMA SPRINK20 MG PO; -DRIZALMA SPRINK30 MG PO; -FOLIC ACID 11 MG/TA1 PO; -INSULIN AS100 UNIT/2 SQ; -KEPPRA 500MG500 MG PO; -LAC-HYDRIN121 TP; -LOPRESSOR 225 MG/TAB PO; -NATURE'S BLEND100 M2 PO; -NYAMYC100000 U/G TP; -OMNICEF 300MG300 MG PO; -PHOSLO667 MG PO; -PRILOSEC 20MG20 MG PO; -PRINCIPEN500 MG PEG; -VANCOCIN HCL500 MG IV; -ZOFRAN 4MG T4 MG/TAB PO
[2020-10-23 18:40] LABS: BASO % 0.2 % (0.0-2.0); EOS # 0.1 (0.0-0.7); EOS % 0.5 % (0-4.0); GRAN # 12.9 (1.4-6.5); GRAN % 80.5 % (42.2-75.2); HEMOGLOBIN 10.8 g/dl (13.5-18.0); LYMPH # 1.8 (1.2-3.4); LYMPH % 11.2 % (20.0-51.0); MEAN CELL VOLUME 87 fl (80.0-100.0); MEAN CORPUSCULAR HEMOGLOBIN 28 pg (27.0-31.0); MEAN CORPUSCULAR HGB CONC 32 g/dl (33.0-37.0); MEAN PLATELET VOLUME 9.7 fl (7.4-10.4); MONO # 1.1 (0.1-0.6); MONO % 7.1 % (1.7-9.3); PLATELET COUNT 185 K/mm3 (130-400); RED BLOOD COUNT 3.92 M/mm3 (4.20-5.60); REDCELL DISTRIBUTION WIDTH-CV 16.6 % (11.5-14.5)
[2020-10-23 18:51] LABS: ALBUMIN 3.6 gm/dL (3.5-5.0); BILIRUBIN,TOTAL 0.4 mg/dL (0.0-1.0); CALCIUM 8.3 mg/dL (8.4-10.2); CREATININE, serum 1.63 (0.66-1.25); POTASSIUM 3.2 mmol/L (3.4-5.0); TOTAL PROTEIN 7.7 gm/dL (6.4-8.2)
[2020-10-23 20:05] LABS: COLLECTION METHOD CLEAN CATCH
[2020-10-23 20:13] LABS: PH 7 (5-8); SQUAMOUS EPITHELIAL None Seen /hpf; URINE APPEARANCE Turbid; URINE BACTERIA None Seen /hpf; URINE BILIRUBIN Negative (NEGATIVE); URINE BLOOD 1+ (NEGATIVE); URINE COLOR Amber; URINE GLUCOSE 3+ (NEGATIVE); URINE KETONE Negative (NEGATIVE); URINE LEUKOCYTE ESTERASE 2+ (NEGATIVE); URINE NITRATE Negative (NEGATIVE); URINE PROTEIN(semi-quant) 2+ (NEGATIVE); URINE RBC 20-50 /hpf; URINE UROBILINOGEN Negative (NEGATIVE)
[2020-10-23] MEDS ORDERED: APRESOLINE 10MG10 MG PEG (21:19)
[2020-10-23] MEDS ORDERED: PRINCIPEN500 MG PEG (21:19)
[2020-10-23 21:50] VITALS: BP 166/84; PULSE 94; TEMP 98.6
[2020-11-10] MEDS ORDERED: INSULIN AS100 UNIT/2 SQ (09:56)
[2020-11-10] MEDS ORDERED: DRIZALMA SPRINK20 MG PO (09:56)
[2020-11-10] MEDS ORDERED: PRILOSEC 20MG20 MG PO (09:57)
[2020-11-10] MEDS ORDERED: LIPITOR 80MG80 MG PO (09:57)
[2020-11-10] MEDS ORDERED: NYAMYC100000 U/G TP (09:58)
[2020-11-10] MEDS ORDERED: COZAAR 25MG25 MG/TAB PO (09:58)
[2020-11-13] MEDS ORDERED: APRESOLINE 10MG10 MG PEG (13:24)
[2020-11-13] MEDS ORDERED: COZAAR 25MG25 MG/TAB PO (13:25)
[2020-11-13] MEDS ORDERED: B-121000 MCG PO (13:26)
[2020-11-13] MEDS ORDERED: CIPRO 500MG TA500 MG PO (13:26)
[2020-11-13] MEDS ORDERED: NATURE'S BLEND100 M2 PO (13:27)
[2020-11-13] MEDS ORDERED: FOLIC ACID 11 MG/TA1 PO (13:27)
[2021-03-03] MEDS ORDERED: DRIZALMA SPRINK30 MG PO (18:03)
[2021-03-03] MEDS ORDERED: LEVEMIR100 U/ML SQ (18:08)
[2021-03-03] MEDS ORDERED: COZAAR100 MG PO (18:09)
[2021-03-03] MEDS ORDERED: LOPRESSOR 225 MG/TAB PO (18:11)
[2021-03-03] MEDS ORDERED: ASPIRIN 81M81 MG/TA2 PO (18:17)
[2021-03-03] MEDS ORDERED: FLORINEF ACETA0.1 MG PO (18:18)
[2021-03-03] MEDS ORDERED: PHOSLO667 MG PO (18:18)
[2021-03-03] MEDS ORDERED: LAC-HYDRIN121 TP (18:20)
[2021-03-03] MEDS ORDERED: CIPRO 500MG TA500 MG PO (18:20)
[2021-03-03] MEDS ORDERED: BIOTENE DRY M1000 ML MM (18:21)
[2021-03-08] MEDS ORDERED: CIPRO 500MG TA500 MG PO (12:23)
[2021-03-08] MEDS ORDERED: VANCOCIN HCL500 MG IV (12:26)
== END 2020-10-23 22:08 | disposition home or self-care (01) ==
LOC: COL.ER 17:13
PROVIDERS: Family Medicine
DX: I13.0 Hypertensive heart and chronic kidney disease with heart failure and stage 1 through stage 4 chronic kidney disease, or unspecified chronic kidney disease (principal); D72.829 Elevated white blood cell count, unspecified; E11.22 Type 2 diabetes mellitus with diabetic chronic kidney disease; E27.1 Primary adrenocortical insufficiency; N18.4 Chronic kidney disease, stage 4 (severe); E78.5 Hyperlipidemia, unspecified; I25.10 Atherosclerotic heart disease of native coronary artery without angina pectoris; I25.2 Old myocardial infarction; F32.9 Major depressive disorder, single episode, unspecified; I50.32 Chronic diastolic (congestive) heart failure; D64.9 Anemia, unspecified; Z79.4 Long term (current) use of insulin; Z86.73 Personal history of transient ischemic attack (TIA), and cerebral infarction without residual deficits; Z79.82 Long term (current) use of aspirin; Z79.899 Other long term (current) drug therapy; Z95.9 Presence of cardiac and vascular implant and graft, unspecified; Z99.2 Dependence on renal dialysis
CPT/HCPCS: J0295; J0360; J2405; J7120

== ENCOUNTER → 2020-10-29 | Outpatient (REF) ==
[~2020-10-29] MED LIST changes: +APRESOLINE 10MG10 MG PEG; +B-121000 MCG PO; +BACTROBAN15 GM TOP; +BIOTENE DRY M1000 ML MM; +CATAPRES 0.1MG0.1 MG PO; +CIPRO 500MG TA500 MG PO; +COZAAR 25MG25 MG/TAB PO; +COZAAR100 MG PO; +CYMBALTA 30MG30 MG PO; +DRIZALMA SPRINK20 MG PO; +DRIZALMA SPRINK30 MG PO; +FOLIC ACID 11 MG/TA1 PO; +INSULIN AS100 UNIT/2 SQ; +KEPPRA 500MG500 MG PO; +LAC-HYDRIN121 TP; +LOPRESSOR 225 MG/TAB PO; +NATURE'S BLEND100 M2 PO; +NYAMYC100000 U/G TP; +OMNICEF 300MG300 MG PO; +PHOSLO667 MG PO; +PRILOSEC 20MG20 MG PO; +PRINCIPEN500 MG PEG; +VANCOCIN HCL500 MG IV; +ZOFRAN 4MG T4 MG/TAB PO
[2020-10-29 11:44] LABS: COLLECTION METHOD CATHETER
[2020-10-29 11:50] LABS: PH 6 (5-8); URINE APPEARANCE Turbid; URINE BILIRUBIN Negative (NEGATIVE); URINE COLOR Yellow; URINE GLUCOSE Negative (NEGATIVE); URINE KETONE Negative (NEGATIVE); URINE NITRATE Negative (NEGATIVE); URINE PROTEIN(semi-quant) 3+ (NEGATIVE); URINE UROBILINOGEN Negative (NEGATIVE)
[2020-10-29 11:51] LABS: SQUAMOUS EPITHELIAL 0-2 /hpf; URINE BACTERIA Moderate /hpf; URINE BLOOD 1+ (NEGATIVE); URINE LEUKOCYTE ESTERASE 3+ (NEGATIVE); URINE WBC >50 /hpf
== END ==
LOC: ZLAB.STJ 11:13
PROVIDERS: Internal Medicine
DX: N39.0 Urinary tract infection, site not specified (principal)

== ENCOUNTER 2020-11-02 20:59 | Emergency (ER) | payer MEDICARE, MEDICAID ==
[~2020-11-02] VITALS: Ht 167.6 cm; Wt 68.2 kg
[~2020-11-02 20:59] MED LIST changes: -B-121000 MCG PO; -BACTROBAN15 GM TOP; -BIOTENE DRY M1000 ML MM; -CATAPRES 0.1MG0.1 MG PO; -CIPRO 500MG TA500 MG PO; -COZAAR 25MG25 MG/TAB PO; -COZAAR100 MG PO; -CYMBALTA 30MG30 MG PO; -DRIZALMA SPRINK20 MG PO; -DRIZALMA SPRINK30 MG PO; -FOLIC ACID 11 MG/TA1 PO; -INSULIN AS100 UNIT/2 SQ; -KEPPRA 500MG500 MG PO; -LAC-HYDRIN121 TP; -LOPRESSOR 225 MG/TAB PO; -NATURE'S BLEND100 M2 PO; -NYAMYC100000 U/G TP; -OMNICEF 300MG300 MG PO; -PHOSLO667 MG PO; -PRILOSEC 20MG20 MG PO; -VANCOCIN HCL500 MG IV; -ZOFRAN 4MG T4 MG/TAB PO
[2020-11-02 21:05] VITALS: TEMP 98.4
[2020-11-02 23:30] VITALS: BP 129/78; PULSE 86
[2020-11-10] MEDS ORDERED: DRIZALMA SPRINK20 MG PO (09:56)
[2020-11-10] MEDS ORDERED: INSULIN AS100 UNIT/2 SQ (09:56)
[2020-11-10] MEDS ORDERED: PRILOSEC 20MG20 MG PO (09:57)
[2020-11-10] MEDS ORDERED: LIPITOR 80MG80 MG PO (09:57)
[2020-11-10] MEDS ORDERED: NYAMYC100000 U/G TP (09:58)
[2020-11-10] MEDS ORDERED: COZAAR 25MG25 MG/TAB PO (09:58)
[2020-11-13] MEDS ORDERED: APRESOLINE 10MG10 MG PEG (13:24)
[2020-11-13] MEDS ORDERED: COZAAR 25MG25 MG/TAB PO (13:25)
[2020-11-13] MEDS ORDERED: B-121000 MCG PO (13:26)
[2020-11-13] MEDS ORDERED: CIPRO 500MG TA500 MG PO (13:26)
[2020-11-13] MEDS ORDERED: FOLIC ACID 11 MG/TA1 PO (13:27)
[2020-11-13] MEDS ORDERED: NATURE'S BLEND100 M2 PO (13:27)
[2021-03-03] MEDS ORDERED: DRIZALMA SPRINK30 MG PO (18:03)
[2021-03-03] MEDS ORDERED: LEVEMIR100 U/ML SQ (18:08)
[2021-03-03] MEDS ORDERED: COZAAR100 MG PO (18:09)
[2021-03-03] MEDS ORDERED: LOPRESSOR 225 MG/TAB PO (18:11)
[2021-03-03] MEDS ORDERED: ASPIRIN 81M81 MG/TA2 PO (18:17)
[2021-03-03] MEDS ORDERED: PHOSLO667 MG PO (18:18)
[2021-03-03] MEDS ORDERED: FLORINEF ACETA0.1 MG PO (18:18)
[2021-03-03] MEDS ORDERED: LAC-HYDRIN121 TP (18:20)
[2021-03-03] MEDS ORDERED: CIPRO 500MG TA500 MG PO (18:20)
[2021-03-03] MEDS ORDERED: BIOTENE DRY M1000 ML MM (18:21)
[2021-03-08] MEDS ORDERED: CIPRO 500MG TA500 MG PO (12:23)
[2021-03-08] MEDS ORDERED: VANCOCIN HCL500 MG IV (12:26)
== END 2020-11-02 23:30 ==
LOC: COL.ER 20:59
DX: S09.90XA Unspecified injury of head, initial encounter (principal); S16.1XXA Strain of muscle, fascia and tendon at neck level, initial encounter; I13.0 Hypertensive heart and chronic kidney disease with heart failure and stage 1 through stage 4 chronic kidney disease, or unspecified chronic kidney disease; I50.30 Unspecified diastolic (congestive) heart failure; E11.22 Type 2 diabetes mellitus with diabetic chronic kidney disease; N18.4 Chronic kidney disease, stage 4 (severe); E27.1 Primary adrenocortical insufficiency; E78.5 Hyperlipidemia, unspecified; I25.2 Old myocardial infarction; F32.9 Major depressive disorder, single episode, unspecified; I25.10 Atherosclerotic heart disease of native coronary artery without angina pectoris; Z99.2 Dependence on renal dialysis; Z86.73 Personal history of transient ischemic attack (TIA), and cerebral infarction without residual deficits; Z79.4 Long term (current) use of insulin; Z79.82 Long term (current) use of aspirin; Z79.899 Other long term (current) drug therapy; Z87.891 Personal history of nicotine dependence; W19.XXXA Unspecified fall, initial encounter

== ENCOUNTER 2020-12-01 01:25 | Emergency (ER) | payer MEDICARE, MEDICAID ==
[~2020-12-01] VITALS: Ht 182.9 cm; Wt 86.4 kg
[~2020-12-01 01:25] MED LIST changes: +B-121000 MCG PO; +CIPRO 500MG TA500 MG PO; +COZAAR 25MG25 MG/TAB PO; +DRIZALMA SPRINK20 MG PO; +FOLIC ACID 11 MG/TA1 PO; +INSULIN AS100 UNIT/2 SQ; +NATURE'S BLEND100 M2 PO; +NYAMYC100000 U/G TP; +PRILOSEC 20MG20 MG PO
[2020-12-01 01:43] VITALS: TEMP 98.9
[2020-12-01 02:57] LABS: HEMATOCRIT 40.7 % (42.0-52.0); HEMOGLOBIN 12.2 g/dl (13.5-18.0); MEAN CELL VOLUME 96 fl (80.0-100.0); MEAN CORPUSCULAR HEMOGLOBIN 29 pg (27.0-31.0); MEAN CORPUSCULAR HGB CONC 30 g/dl (33.0-37.0); MEAN PLATELET VOLUME 10.3 fl (7.4-10.4); PLATELET COUNT 195 K/mm3 (130-400); RED BLOOD COUNT 4.25 M/mm3 (4.20-5.60); REDCELL DISTRIBUTION WIDTH-CV 17.7 % (11.5-14.5)
[2020-12-01 03:10] LABS: ALBUMIN 3.3 gm/dL (3.5-5.0); BILIRUBIN,TOTAL 0.3 mg/dL (0.0-1.0); CALCIUM 8.8 mg/dL (8.4-10.2); CREATININE, serum 3.08 (0.66-1.25); POTASSIUM 3.9 mmol/L (3.4-5.0); TOTAL PROTEIN 7.4 gm/dL (6.4-8.2)
[2020-12-01 03:14] LABS: PROTHROMBIN TIME 10.6 SECONDS (9.7-12.8)
[2020-12-01 03:15] LABS: ANISOCYTOSIS 1+; BAND 7 % (0-10); EOSINOPHIL 1 % (0-4); HYPOCHROMIA 3+; LYMPHOCYTE 7 % (20.0-51.0); NEUTROPHILS 74 % (42.0-75.2); PLATELET ESTIMATE NORMAL (NORMAL)
[2020-12-01 03:16] LABS: POIKILOCYTOSIS 1+
[2020-12-01 03:50] LABS: CLOSTRIDIUM DIFF A/B NEG; CLOSTRIDIUM DIFF A/B INTERP No C.diff present
[2020-12-01 05:11] VITALS: BP 132/70; PULSE 64
[2020-12-02] MEDS ORDERED: LYRICA 25MG CAP25 MG PO (11:47)
[2020-12-02] MEDS ORDERED: LEVEMIR FLEX100 U/ML SQ (11:48)
[2020-12-02] MEDS ORDERED: LOPRESSOR 225 MG/TAB PO (11:49)
[2021-03-03] MEDS ORDERED: DRIZALMA SPRINK30 MG PO (18:03)
[2021-03-03] MEDS ORDERED: LEVEMIR100 U/ML SQ (18:08)
[2021-03-03] MEDS ORDERED: COZAAR100 MG PO (18:09)
[2021-03-03] MEDS ORDERED: LOPRESSOR 225 MG/TAB PO (18:11)
[2021-03-03] MEDS ORDERED: ASPIRIN 81M81 MG/TA2 PO (18:17)
[2021-03-03] MEDS ORDERED: PHOSLO667 MG PO (18:18)
[2021-03-03] MEDS ORDERED: FLORINEF ACETA0.1 MG PO (18:18)
[2021-03-03] MEDS ORDERED: CIPRO 500MG TA500 MG PO (18:20)
[2021-03-03] MEDS ORDERED: LAC-HYDRIN121 TP (18:20)
[2021-03-03] MEDS ORDERED: BIOTENE DRY M1000 ML MM (18:21)
[2021-03-08] MEDS ORDERED: CIPRO 500MG TA500 MG PO (12:23)
[2021-03-08] MEDS ORDERED: VANCOCIN HCL500 MG IV (12:26)
== END 2020-12-01 05:11 | disposition home or self-care (01) ==
LOC: COL.ER 01:25
PROVIDERS: Personal Emergency Response Attendant
DX: K62.5 Hemorrhage of anus and rectum (principal); R19.7 Diarrhea, unspecified; I13.0 Hypertensive heart and chronic kidney disease with heart failure and stage 1 through stage 4 chronic kidney disease, or unspecified chronic kidney disease; N18.9 Chronic kidney disease, unspecified; I50.9 Heart failure, unspecified; E11.22 Type 2 diabetes mellitus with diabetic chronic kidney disease; I25.2 Old myocardial infarction; Z79.899 Other long term (current) drug therapy; Z79.4 Long term (current) use of insulin
CPT/HCPCS: J7030

== ENCOUNTER 2020-12-02 09:31 | Day surgery (SDC) | payer MEDICARE, MEDICAID ==
[~2020-12-02] VITALS: Ht 170.2 cm; Wt 65.5 kg
[2020-12-02 10:49] VITALS: BP 169/105; PULSE 78; TEMP 98
--- NOTE | 2020-12-02 10:55 | NUR ---
PATIENT IN WAITING ROOM IN WHEEL CHAIR FROM [facility]. PATIENT IS A VERY POOR HISTORIAN. CONSENT EXPLAINED AND PATIENT SIGNED. PATIENT HAS DIALYSIS CATHETER TO RIGHT CHEST. PATIENT HAS ANOTHER TUBE IN ABDOMEN. PAPERWORK FROM [facility] DOES NOT LIST WHEN PATIENT LAST TOOK MEDICATION. KACEY TELLEZ NOTIFIED OF ACCUCHECK OF 127. KACEY APPROVED TO HANG JUST NORMAL SALINE. [facility] CALLED AND WILL BE SENDING MEDICATION LIST OF WHEN MEDICATION WAS TAKEN. LUKASZRN AT [facility] STATED THAT PATIENT LAST ATE SOLID FOOD AT 2PM. STARTED BOWEL PREP AT 7 PM. FINNISHED TAKING PREP AT 0600.
--- NOTE | 2020-12-02 11:15 | NUR ---
[facility]IA [facility] NURSE LUKASZ STATED THAT PATIENT WAS RAPID TESTED FOR COVID AND IT CAME BACK NEGATIVE AND SEND OUT COVID TEST WAS PERFORMED TOO. JAIL TO FAX RESULT WHEN IT IS RECEIVED. PATIENT IS ASYMPTOMATIC AT THIS TIME.
[2020-12-02] MEDS ORDERED: LYRICA 25MG CAP25 MG PO (11:47)
[2020-12-02] MEDS ORDERED: LEVEMIR FLEX100 U/ML SQ (11:48)
[2020-12-02] MEDS ORDERED: LOPRESSOR 225 MG/TAB PO (11:49)
[2020-12-02 12:15] VITALS: BP 106/74; PULSE 65; TEMP 97.3
[2020-12-02 12:30] VITALS: BP 116/79; PULSE 62
[2020-12-02 12:45] VITALS: BP 143/94; PULSE 62
--- NOTE | 2020-12-02 16:25 | NUR ---
PT RETURNED FROM THE ENDO UNIT INTO BAY #6. PT ALERT TO NAME, EYE CLOSED. PT SLEEPING. WILL AROUSE TO NAME. LUNGS CLEAR, HRR, BOWEL SOUNDS ACTIVE X4. PEG TUBE IN PLACE. DIALYSIS PORT COVERED WITH 4X4 AND TAPE. PT ARRIVED WITH DRESSING ALREADY IN PLACE. IV SITE INTACT TO RIGHT HAND. PT TO HAVE A CT OF ABDOMEN WITH CONTRAST. PT STATES, 'NO' WHEN ASKING ABOUT PAIN OR NAUSEA. WILL CONT TO MONITOR PROGRESS.
--- NOTE | 2020-12-02 16:33 | NUR ---
PT ASLEEP, CONTINUES TO STATE, 'NO' WHEN ASKED IF HE IS EXPERIENCING PAIN OR NAUSEA. BLOOD SUGAR WAS CHECK AND WAS 122. CT TO BE DONE. WILL MONITOR.
--- NOTE | 2020-12-02 16:39 | NUR ---
PT RETURNED FROM CT OF ABDOMEN AND PELVIS. OFFERED PT VANILLA PUDDING AND WATER. PT TOLERATED BOTH WITHOUT DIFFICULTY. CONTINUES TO DENY PAIN OR NAUSEA. REPORT WAS CALLED TO DORIS LAL AT [facility]. PT TO BE TRANSPORTED BACK TO FACILTY. IV WAS DC'D TO RIGHT HAND, PT TOLERATED WELL. PT WAS TRANSFERED X2 PERSON ASSIST TO PT . PT RECIEVED HELP GETTING DRESSED. DISMISSAL INSTRUCTIONS WERE WENT WITH PATIENT.
[2021-03-03] MEDS ORDERED: DRIZALMA SPRINK30 MG PO (18:03)
[2021-03-03] MEDS ORDERED: LEVEMIR100 U/ML SQ (18:08)
[2021-03-03] MEDS ORDERED: COZAAR100 MG PO (18:09)
[2021-03-03] MEDS ORDERED: LOPRESSOR 225 MG/TAB PO (18:11)
[2021-03-03] MEDS ORDERED: ASPIRIN 81M81 MG/TA2 PO (18:17)
[2021-03-03] MEDS ORDERED: PHOSLO667 MG PO (18:18)
[2021-03-03] MEDS ORDERED: FLORINEF ACETA0.1 MG PO (18:18)
[2021-03-03] MEDS ORDERED: CIPRO 500MG TA500 MG PO (18:20)
[2021-03-03] MEDS ORDERED: LAC-HYDRIN121 TP (18:20)
[2021-03-03] MEDS ORDERED: BIOTENE DRY M1000 ML MM (18:21)
[2021-03-08] MEDS ORDERED: CIPRO 500MG TA500 MG PO (12:23)
[2021-03-08] MEDS ORDERED: VANCOCIN HCL500 MG IV (12:26)
== END 2020-12-02 14:30 | disposition home or self-care (01) ==
LOC: SDCO 09:31
DX: K92.1 Melena (principal); T18.2XXA Foreign body in stomach, initial encounter; K29.70 Gastritis, unspecified, without bleeding; K64.1 Second degree hemorrhoids; K60.0 Acute anal fissure; K63.3 Ulcer of intestine; K63.89 Other specified diseases of intestine; K21.9 Gastro-esophageal reflux disease without esophagitis; E78.5 Hyperlipidemia, unspecified; I13.2 Hypertensive heart and chronic kidney disease with heart failure and with stage 5 chronic kidney disease, or end stage renal disease; E11.22 Type 2 diabetes mellitus with diabetic chronic kidney disease; I50.9 Heart failure, unspecified; N18.6 End stage renal disease; D64.9 Anemia, unspecified; F32.9 Major depressive disorder, single episode, unspecified; G91.9 Hydrocephalus, unspecified; G93.40 Encephalopathy, unspecified; G81.94 Hemiplegia, unspecified affecting left nondominant side; E11.40 Type 2 diabetes mellitus with diabetic neuropathy, unspecified; Z86.73 Personal history of transient ischemic attack (TIA), and cerebral infarction without residual deficits; Z79.4 Long term (current) use of insulin; Z95.1 Presence of aortocoronary bypass graft; Z79.899 Other long term (current) drug therapy
CPT/HCPCS: J2704; J7030; Q9967

== ENCOUNTER 2020-12-14 20:36 | Emergency (ER) | payer MEDICARE, MEDICAID ==
[~2020-12-14] VITALS: Ht 170.2 cm; Wt 99.1 kg
[~2020-12-14 20:36] MED LIST changes: +LOPRESSOR 225 MG/TAB PO
[2020-12-14 20:40] VITALS: TEMP 98.4
[2020-12-14 21:06] LABS: BASO % 0.2 % (0.0-2.0); EOS # 0.1 (0.0-0.7); EOS % 0.4 % (0-4.0); GRAN # 11.4 (1.4-6.5); GRAN % 85.2 % (42.2-75.2); HEMATOCRIT 42.4 % (42.0-52.0); HEMOGLOBIN 13.3 g/dl (13.5-18.0); LYMPH % 7.3 % (20.0-51.0); MEAN CELL VOLUME 93 fl (80.0-100.0); MEAN CORPUSCULAR HEMOGLOBIN 29 pg (27.0-31.0); MEAN CORPUSCULAR HGB CONC 31 g/dl (33.0-37.0); MEAN PLATELET VOLUME 9.5 fl (7.4-10.4); MONO # 0.8 (0.1-0.6); MONO % 6.1 % (1.7-9.3); PLATELET COUNT 211 K/mm3 (130-400); RED BLOOD COUNT 4.57 M/mm3 (4.20-5.60); REDCELL DISTRIBUTION WIDTH-CV 14.9 % (11.5-14.5)
[2020-12-14 21:15] LABS: CALCIUM 8.6 mg/dL (8.4-10.2); CREATININE, serum 3.13 (0.66-1.25); POTASSIUM 4.3 mmol/L (3.4-5.0)
[2020-12-14] MEDS ORDERED: CEPHALEXIN500 M1 PO (22:04)
[2020-12-14] MEDS ORDERED: BACTROBAN15 GM TOP (22:04)
[2020-12-14 23:23] VITALS: BP 124/77; PULSE 67
[2021-03-03] MEDS ORDERED: DRIZALMA SPRINK30 MG PO (18:03)
[2021-03-03] MEDS ORDERED: LEVEMIR100 U/ML SQ (18:08)
[2021-03-03] MEDS ORDERED: COZAAR100 MG PO (18:09)
[2021-03-03] MEDS ORDERED: LOPRESSOR 225 MG/TAB PO (18:11)
[2021-03-03] MEDS ORDERED: ASPIRIN 81M81 MG/TA2 PO (18:17)
[2021-03-03] MEDS ORDERED: FLORINEF ACETA0.1 MG PO (18:18)
[2021-03-03] MEDS ORDERED: PHOSLO667 MG PO (18:18)
[2021-03-03] MEDS ORDERED: LAC-HYDRIN121 TP (18:20)
[2021-03-03] MEDS ORDERED: CIPRO 500MG TA500 MG PO (18:20)
[2021-03-03] MEDS ORDERED: BIOTENE DRY M1000 ML MM (18:21)
[2021-03-08] MEDS ORDERED: CIPRO 500MG TA500 MG PO (12:23)
[2021-03-08] MEDS ORDERED: VANCOCIN HCL500 MG IV (12:26)
== END 2020-12-14 23:25 | disposition home or self-care (01) ==
LOC: COL.ER 20:36
PROVIDERS: Emergency Medicine
DX: L02.221 Furuncle of abdominal wall (principal); I12.0 Hypertensive chronic kidney disease with stage 5 chronic kidney disease or end stage renal disease; N18.6 End stage renal disease; E11.22 Type 2 diabetes mellitus with diabetic chronic kidney disease; I25.2 Old myocardial infarction; F03.90 Unspecified dementia, unspecified severity, without behavioral disturbance, psychotic disturbance, mood disturbance, and anxiety; Z99.2 Dependence on renal dialysis; Z79.899 Other long term (current) drug therapy; Z95.9 Presence of cardiac and vascular implant and graft, unspecified; Z79.4 Long term (current) use of insulin
CPT/HCPCS: J0360

== ENCOUNTER → 2020-12-15 | Outpatient (REF) ==
[~2020-12-15] MED LIST changes: +BACTROBAN15 GM TOP; +BIOTENE DRY M1000 ML MM; +CATAPRES 0.1MG0.1 MG PO; +COZAAR100 MG PO; +CYMBALTA 30MG30 MG PO; +DRIZALMA SPRINK30 MG PO; +KEPPRA 500MG500 MG PO; +LAC-HYDRIN121 TP; +OMNICEF 300MG300 MG PO; +PHOSLO667 MG PO; +VANCOCIN HCL500 MG IV; +ZOFRAN 4MG T4 MG/TAB PO
[2020-12-15 18:16] LABS: COLLECTION METHOD CATHETER
[2020-12-15 18:32] LABS: PH 5 (5-8); SQUAMOUS EPITHELIAL None Seen /hpf; URINE APPEARANCE Turbid; URINE BACTERIA None Seen /hpf; URINE BILIRUBIN Negative (NEGATIVE); URINE BLOOD 1+ (NEGATIVE); URINE COLOR Yellow; URINE GLUCOSE 3+ (NEGATIVE); URINE KETONE Negative (NEGATIVE); URINE LEUKOCYTE ESTERASE 3+ (NEGATIVE); URINE NITRATE Negative (NEGATIVE); URINE PROTEIN(semi-quant) 3+ (NEGATIVE); URINE RBC 20-50 /hpf; URINE UROBILINOGEN Negative (NEGATIVE)
== END ==
LOC: ZLAB.STJ 18:14
PROVIDERS: Internal Medicine
DX: Z01.89 Encounter for other specified special examinations (principal)

== ENCOUNTER 2020-12-19 11:28 | Emergency (ER) | payer MEDICARE, MEDICAID ==
[~2020-12-19] VITALS: Ht 170.2 cm; Wt 68.2 kg
[~2020-12-19 11:28] MED LIST changes: -BIOTENE DRY M1000 ML MM; -CATAPRES 0.1MG0.1 MG PO; -COZAAR100 MG PO; -CYMBALTA 30MG30 MG PO; -DRIZALMA SPRINK30 MG PO; -KEPPRA 500MG500 MG PO; -LAC-HYDRIN121 TP; -OMNICEF 300MG300 MG PO; -PHOSLO667 MG PO; -VANCOCIN HCL500 MG IV; -ZOFRAN 4MG T4 MG/TAB PO
[2020-12-19 13:04] VITALS: BP 174/83; PULSE 68; TEMP 97.1
[2021-03-03] MEDS ORDERED: DRIZALMA SPRINK30 MG PO (18:03)
[2021-03-03] MEDS ORDERED: LEVEMIR100 U/ML SQ (18:08)
[2021-03-03] MEDS ORDERED: COZAAR100 MG PO (18:09)
[2021-03-03] MEDS ORDERED: LOPRESSOR 225 MG/TAB PO (18:11)
[2021-03-03] MEDS ORDERED: ASPIRIN 81M81 MG/TA2 PO (18:17)
[2021-03-03] MEDS ORDERED: PHOSLO667 MG PO (18:18)
[2021-03-03] MEDS ORDERED: FLORINEF ACETA0.1 MG PO (18:18)
[2021-03-03] MEDS ORDERED: CIPRO 500MG TA500 MG PO (18:20)
[2021-03-03] MEDS ORDERED: LAC-HYDRIN121 TP (18:20)
[2021-03-03] MEDS ORDERED: BIOTENE DRY M1000 ML MM (18:21)
[2021-03-08] MEDS ORDERED: CIPRO 500MG TA500 MG PO (12:23)
[2021-03-08] MEDS ORDERED: VANCOCIN HCL500 MG IV (12:26)
== END 2020-12-19 13:13 | disposition home or self-care (01) ==
LOC: COL.ER 11:28
DX: Z46.59 Encounter for fitting and adjustment of other gastrointestinal appliance and device (principal); E11.22 Type 2 diabetes mellitus with diabetic chronic kidney disease; I12.9 Hypertensive chronic kidney disease with stage 1 through stage 4 chronic kidney disease, or unspecified chronic kidney disease; N18.4 Chronic kidney disease, stage 4 (severe); D63.1 Anemia in chronic kidney disease; E78.5 Hyperlipidemia, unspecified; I25.2 Old myocardial infarction; I10 Essential (primary) hypertension; Z79.4 Long term (current) use of insulin; Z79.899 Other long term (current) drug therapy

== ENCOUNTER 2021-01-01 01:05 | Emergency (ER) | payer MEDICARE, MEDICAID ==
[~2021-01-01] VITALS: Ht 175.3 cm; Wt 67.1 kg
[2021-01-01 01:09] VITALS: TEMP 97.2
[2021-01-01 02:39] LABS: BASO % 0.3 % (0.0-2.0); EOS # 0.3 (0.0-0.7); EOS % 2.7 % (0-4.0); GRAN # 7.2 (1.4-6.5); GRAN % 73.5 % (42.2-75.2); HEMOGLOBIN 11.2 g/dl (13.5-18.0); LYMPH # 1.2 (1.2-3.4); LYMPH % 12.6 % (20.0-51.0); MEAN CELL VOLUME 93 fl (80.0-100.0); MEAN CORPUSCULAR HEMOGLOBIN 29 pg (27.0-31.0); MEAN CORPUSCULAR HGB CONC 31 g/dl (33.0-37.0); MEAN PLATELET VOLUME 9.6 fl (7.4-10.4); MONO % 10.3 % (1.7-9.3); PLATELET COUNT 186 K/mm3 (130-400); RED BLOOD COUNT 3.87 M/mm3 (4.20-5.60); REDCELL DISTRIBUTION WIDTH-CV 14.1 % (11.5-14.5)
[2021-01-01 02:40] LABS: HEMATOCRIT 35.9 % (42.0-52.0)
[2021-01-01 02:51] LABS: CALCIUM 7.8 mg/dL (8.4-10.2); POTASSIUM 3.7 mmol/L (3.4-5.0)
[2021-01-01 05:40] VITALS: BP 169/97; PULSE 86
[2021-03-03] MEDS ORDERED: DRIZALMA SPRINK30 MG PO (18:03)
[2021-03-03] MEDS ORDERED: LEVEMIR100 U/ML SQ (18:08)
[2021-03-03] MEDS ORDERED: COZAAR100 MG PO (18:09)
[2021-03-03] MEDS ORDERED: LOPRESSOR 225 MG/TAB PO (18:11)
[2021-03-03] MEDS ORDERED: ASPIRIN 81M81 MG/TA2 PO (18:17)
[2021-03-03] MEDS ORDERED: FLORINEF ACETA0.1 MG PO (18:18)
[2021-03-03] MEDS ORDERED: PHOSLO667 MG PO (18:18)
[2021-03-03] MEDS ORDERED: CIPRO 500MG TA500 MG PO (18:20)
[2021-03-03] MEDS ORDERED: LAC-HYDRIN121 TP (18:20)
[2021-03-03] MEDS ORDERED: BIOTENE DRY M1000 ML MM (18:21)
[2021-03-08] MEDS ORDERED: CIPRO 500MG TA500 MG PO (12:23)
[2021-03-08] MEDS ORDERED: VANCOCIN HCL500 MG IV (12:26)
== END 2021-01-01 05:40 | disposition home or self-care (01) ==
LOC: COL.ER 01:05
PROVIDERS: Emergency Medicine
DX: I12.9 Hypertensive chronic kidney disease with stage 1 through stage 4 chronic kidney disease, or unspecified chronic kidney disease (principal); E78.5 Hyperlipidemia, unspecified; I25.10 Atherosclerotic heart disease of native coronary artery without angina pectoris; N18.9 Chronic kidney disease, unspecified; I25.2 Old myocardial infarction; Z79.899 Other long term (current) drug therapy; Z86.73 Personal history of transient ischemic attack (TIA), and cerebral infarction without residual deficits; Z87.891 Personal history of nicotine dependence

== ENCOUNTER 2021-01-02 22:45 | Emergency (ER) | payer MEDICARE, MEDICAID ==
[~2021-01-02] VITALS: Ht 175.3 cm; Wt 77.3 kg
[2021-01-03] MEDS ORDERED: CATAPRES 0.1MG0.1 MG PO (03:12)
[2021-01-03 03:52] VITALS: BP 185/110; PULSE 69; TEMP 98.3
[2021-03-03] MEDS ORDERED: DRIZALMA SPRINK30 MG PO (18:03)
[2021-03-03] MEDS ORDERED: LEVEMIR100 U/ML SQ (18:08)
[2021-03-03] MEDS ORDERED: COZAAR100 MG PO (18:09)
[2021-03-03] MEDS ORDERED: LOPRESSOR 225 MG/TAB PO (18:11)
[2021-03-03] MEDS ORDERED: ASPIRIN 81M81 MG/TA2 PO (18:17)
[2021-03-03] MEDS ORDERED: FLORINEF ACETA0.1 MG PO (18:18)
[2021-03-03] MEDS ORDERED: PHOSLO667 MG PO (18:18)
[2021-03-03] MEDS ORDERED: LAC-HYDRIN121 TP (18:20)
[2021-03-03] MEDS ORDERED: CIPRO 500MG TA500 MG PO (18:20)
[2021-03-03] MEDS ORDERED: BIOTENE DRY M1000 ML MM (18:21)
[2021-03-08] MEDS ORDERED: CIPRO 500MG TA500 MG PO (12:23)
[2021-03-08] MEDS ORDERED: VANCOCIN HCL500 MG IV (12:26)
== END 2021-01-03 03:52 | disposition home or self-care (01) ==
LOC: COL.ER 22:45
DX: I12.9 Hypertensive chronic kidney disease with stage 1 through stage 4 chronic kidney disease, or unspecified chronic kidney disease (principal); N18.9 Chronic kidney disease, unspecified; I25.2 Old myocardial infarction; Z99.2 Dependence on renal dialysis; Z86.73 Personal history of transient ischemic attack (TIA), and cerebral infarction without residual deficits; Z79.899 Other long term (current) drug therapy; Z95.9 Presence of cardiac and vascular implant and graft, unspecified

== ENCOUNTER → 2021-01-05 | Outpatient (REF) ==
[~2021-01-05] MED LIST changes: +BIOTENE DRY M1000 ML MM; +CATAPRES 0.1MG0.1 MG PO; +COZAAR100 MG PO; +CYMBALTA 30MG30 MG PO; +DRIZALMA SPRINK30 MG PO; +KEPPRA 500MG500 MG PO; +LAC-HYDRIN121 TP; +OMNICEF 300MG300 MG PO; +PHOSLO667 MG PO; +VANCOCIN HCL500 MG IV; +ZOFRAN 4MG T4 MG/TAB PO
[2021-01-05 10:28] LABS: COLLECTION METHOD CATHETER
[2021-01-05 11:01] LABS: PH 7 (5-8); SQUAMOUS EPITHELIAL 0-2 /hpf; URINE APPEARANCE Cloudy; URINE BACTERIA None Seen /hpf; URINE BILIRUBIN Negative (NEGATIVE); URINE BLOOD 1+ (NEGATIVE); URINE COLOR Yellow; URINE GLUCOSE 3+ (NEGATIVE); URINE KETONE Negative (NEGATIVE); URINE LEUKOCYTE ESTERASE 3+ (NEGATIVE); URINE NITRATE Negative (NEGATIVE); URINE PROTEIN(semi-quant) 3+ (NEGATIVE); URINE UROBILINOGEN Negative (NEGATIVE); URINE WBC >50 /hpf
== END ==
LOC: ZLAB.STJ 10:27
PROVIDERS: Physician Assistant Medical
DX: Z01.89 Encounter for other specified special examinations (principal)

== ENCOUNTER → 2021-01-08 | Outpatient (REF) ==
[2021-01-08 18:37] LABS: COLLECTION METHOD CATHETER
[2021-01-08 18:50] LABS: PH 7 (5-8); SQUAMOUS EPITHELIAL None Seen /hpf; URINE APPEARANCE Turbid; URINE BACTERIA None Seen /hpf; URINE BILIRUBIN Negative (NEGATIVE); URINE BLOOD 2+ (NEGATIVE); URINE COLOR Yellow; URINE GLUCOSE 3+ (NEGATIVE); URINE KETONE Negative (NEGATIVE); URINE LEUKOCYTE ESTERASE 2+ (NEGATIVE); URINE NITRATE Negative (NEGATIVE); URINE PROTEIN(semi-quant) 3+ (NEGATIVE); URINE RBC 20-50 /hpf; URINE UROBILINOGEN Negative (NEGATIVE)
== END ==
LOC: ZLAB.STJ 18:35
PROVIDERS: Internal Medicine
DX: R82.90 Unspecified abnormal findings in urine (principal)

== ENCOUNTER 2021-01-19 01:04 | Emergency (ER) | payer MEDICARE, MEDICAID ==
[~2021-01-19] VITALS: Ht 175.3 cm; Wt 63.6 kg
[~2021-01-19 01:04] MED LIST changes: -BIOTENE DRY M1000 ML MM; -COZAAR100 MG PO; -CYMBALTA 30MG30 MG PO; -DRIZALMA SPRINK30 MG PO; -KEPPRA 500MG500 MG PO; -LAC-HYDRIN121 TP; -OMNICEF 300MG300 MG PO; -PHOSLO667 MG PO; -VANCOCIN HCL500 MG IV; -ZOFRAN 4MG T4 MG/TAB PO
[2021-01-19 02:13] LABS: HEMOGLOBIN 10.8 g/dl (13.5-18.0); MEAN CELL VOLUME 93 fl (80.0-100.0); MEAN CORPUSCULAR HEMOGLOBIN 29 pg (27.0-31.0); MEAN CORPUSCULAR HGB CONC 32 g/dl (33.0-37.0); MEAN PLATELET VOLUME 8.9 fl (7.4-10.4); PLATELET COUNT 158 K/mm3 (130-400); RED BLOOD COUNT 3.68 M/mm3 (4.20-5.60); REDCELL DISTRIBUTION WIDTH-CV 15.4 % (11.5-14.5)
[2021-01-19 02:16] LABS: HEMATOCRIT 34.2 % (42.0-52.0)
[2021-01-19 02:25] LABS: BILIRUBIN,TOTAL 0.3 mg/dL (0.0-1.0); CREATININE, serum 3.27 (0.66-1.25); POTASSIUM 3.8 mmol/L (3.4-5.0); TOTAL PROTEIN 7.2 gm/dL (6.4-8.2)
[2021-01-19 02:32] LABS: ANISOCYTOSIS 1+; BAND 1 % (0-10); EOSINOPHIL 1 % (0-4); LYMPHOCYTE 7 % (20.0-51.0); NEUTROPHILS 83 % (42.0-75.2); PLATELET ESTIMATE NORMAL (NORMAL); POIKILOCYTOSIS 1+
[2021-01-19 02:33] LABS: HYPOCHROMIA 1+; OVALOCYTES 1+
[2021-01-19 03:54] LABS: COLLECTION METHOD CATHETER
[2021-01-19 04:05] LABS: PH 7 (5-8); SQUAMOUS EPITHELIAL 0-2 /hpf; URINE APPEARANCE Cloudy; URINE BACTERIA None Seen /hpf; URINE BILIRUBIN Negative (NEGATIVE); URINE BLOOD 1+ (NEGATIVE); URINE COLOR Yellow; URINE GLUCOSE 3+ (NEGATIVE); URINE KETONE Negative (NEGATIVE); URINE LEUKOCYTE ESTERASE 3+ (NEGATIVE); URINE NITRATE Negative (NEGATIVE); URINE PROTEIN(semi-quant) 3+ (NEGATIVE); URINE UROBILINOGEN Negative (NEGATIVE)
[2021-01-19] MEDS ORDERED: CEPHALEXIN500 M1 PO (04:39)
[2021-01-19 05:04] VITALS: BP 102/60; PULSE 68; TEMP 98.8
[2021-03-03] MEDS ORDERED: DRIZALMA SPRINK30 MG PO (18:03)
[2021-03-03] MEDS ORDERED: LEVEMIR100 U/ML SQ (18:08)
[2021-03-03] MEDS ORDERED: COZAAR100 MG PO (18:09)
[2021-03-03] MEDS ORDERED: LOPRESSOR 225 MG/TAB PO (18:11)
[2021-03-03] MEDS ORDERED: ASPIRIN 81M81 MG/TA2 PO (18:17)
[2021-03-03] MEDS ORDERED: FLORINEF ACETA0.1 MG PO (18:18)
[2021-03-03] MEDS ORDERED: PHOSLO667 MG PO (18:18)
[2021-03-03] MEDS ORDERED: CIPRO 500MG TA500 MG PO (18:20)
[2021-03-03] MEDS ORDERED: LAC-HYDRIN121 TP (18:20)
[2021-03-03] MEDS ORDERED: BIOTENE DRY M1000 ML MM (18:21)
[2021-03-08] MEDS ORDERED: CIPRO 500MG TA500 MG PO (12:23)
[2021-03-08] MEDS ORDERED: VANCOCIN HCL500 MG IV (12:26)
== END 2021-01-19 05:04 | disposition home or self-care (01) ==
LOC: COL.ER 01:04
PROVIDERS: Personal Emergency Response Attendant
DX: I13.2 Hypertensive heart and chronic kidney disease with heart failure and with stage 5 chronic kidney disease, or end stage renal disease (principal); N39.0 Urinary tract infection, site not specified; I50.30 Unspecified diastolic (congestive) heart failure; E11.22 Type 2 diabetes mellitus with diabetic chronic kidney disease; N18.6 End stage renal disease; I25.2 Old myocardial infarction; Z99.2 Dependence on renal dialysis; Z95.9 Presence of cardiac and vascular implant and graft, unspecified; Z87.891 Personal history of nicotine dependence; Z79.899 Other long term (current) drug therapy; Z79.4 Long term (current) use of insulin
CPT/HCPCS: J0360; J0696

== ENCOUNTER → 2021-01-29 | Outpatient (CLI) | payer MEDICARE, MEDICAID ==
[~2021-01-29] MED LIST changes: +BIOTENE DRY M1000 ML MM; +COZAAR100 MG PO; +CYMBALTA 30MG30 MG PO; +DRIZALMA SPRINK30 MG PO; +KEPPRA 500MG500 MG PO; +LAC-HYDRIN121 TP; +OMNICEF 300MG300 MG PO; +PHOSLO667 MG PO; +VANCOCIN HCL500 MG IV; +ZOFRAN 4MG T4 MG/TAB PO
== END ==
LOC: ZLAB.STJ 15:16
DX: N18.6 End stage renal disease (principal); Z99.2 Dependence on renal dialysis

== ENCOUNTER 2021-02-08 22:42 | Emergency (ER) | payer MEDICARE, MEDICAID ==
[~2021-02-08] VITALS: Ht 167.6 cm; Wt 72.7 kg
[~2021-02-08 22:42] MED LIST changes: -BIOTENE DRY M1000 ML MM; -COZAAR100 MG PO; -CYMBALTA 30MG30 MG PO; -DRIZALMA SPRINK30 MG PO; -KEPPRA 500MG500 MG PO; -LAC-HYDRIN121 TP; -OMNICEF 300MG300 MG PO; -PHOSLO667 MG PO; -VANCOCIN HCL500 MG IV; -ZOFRAN 4MG T4 MG/TAB PO
[2021-02-08 22:44] VITALS: TEMP 98.6
[2021-02-08] MEDS ORDERED: NORVASC2.5 MG PO (23:37)
[2021-02-08] MEDS ORDERED: CATAPRES 0.1MG0.1 MG PO (23:37)
[2021-02-09 00:25] VITALS: BP 208/132; PULSE 90
[2021-03-03] MEDS ORDERED: DRIZALMA SPRINK30 MG PO (18:03)
[2021-03-03] MEDS ORDERED: LEVEMIR100 U/ML SQ (18:08)
[2021-03-03] MEDS ORDERED: COZAAR100 MG PO (18:09)
[2021-03-03] MEDS ORDERED: LOPRESSOR 225 MG/TAB PO (18:11)
[2021-03-03] MEDS ORDERED: ASPIRIN 81M81 MG/TA2 PO (18:17)
[2021-03-03] MEDS ORDERED: PHOSLO667 MG PO (18:18)
[2021-03-03] MEDS ORDERED: FLORINEF ACETA0.1 MG PO (18:18)
[2021-03-03] MEDS ORDERED: CIPRO 500MG TA500 MG PO (18:20)
[2021-03-03] MEDS ORDERED: LAC-HYDRIN121 TP (18:20)
[2021-03-03] MEDS ORDERED: BIOTENE DRY M1000 ML MM (18:21)
[2021-03-08] MEDS ORDERED: CIPRO 500MG TA500 MG PO (12:23)
[2021-03-08] MEDS ORDERED: VANCOCIN HCL500 MG IV (12:26)
== END 2021-02-09 00:26 ==
LOC: COL.ER 22:42
DX: I13.2 Hypertensive heart and chronic kidney disease with heart failure and with stage 5 chronic kidney disease, or end stage renal disease (principal); I50.9 Heart failure, unspecified; N18.6 End stage renal disease; E11.22 Type 2 diabetes mellitus with diabetic chronic kidney disease; I25.10 Atherosclerotic heart disease of native coronary artery without angina pectoris; E78.5 Hyperlipidemia, unspecified; I25.2 Old myocardial infarction; Z99.2 Dependence on renal dialysis; Z95.9 Presence of cardiac and vascular implant and graft, unspecified; Z79.899 Other long term (current) drug therapy; Z79.4 Long term (current) use of insulin

== ENCOUNTER → 2021-02-12 | Outpatient (CLI) | payer MEDICARE, MEDICAID ==
[~2021-02-12] MED LIST changes: +BIOTENE DRY M1000 ML MM; +COZAAR100 MG PO; +CYMBALTA 30MG30 MG PO; +DRIZALMA SPRINK30 MG PO; +KEPPRA 500MG500 MG PO; +LAC-HYDRIN121 TP; +OMNICEF 300MG300 MG PO; +PHOSLO667 MG PO; +VANCOCIN HCL500 MG IV; +ZOFRAN 4MG T4 MG/TAB PO
== END ==
LOC: COL.VAS 02-11 13:30
DX: N18.6 End stage renal disease (principal); Z99.2 Dependence on renal dialysis

== ENCOUNTER 2021-03-18 23:59 | Emergency (ER) | payer MEDICARE, MEDICAID ==
[~2021-03-18] VITALS: Ht 182.9 cm; Wt 86.4 kg
[~2021-03-18 23:59] MED LIST changes: -CYMBALTA 30MG30 MG PO; -KEPPRA 500MG500 MG PO; -OMNICEF 300MG300 MG PO; -ZOFRAN 4MG T4 MG/TAB PO
[2021-03-19 00:01] VITALS: TEMP 97.7
[2021-03-19 03:23] VITALS: BP 167/113; PULSE 67
== END 2021-03-19 03:23 ==
LOC: COL.ER 23:59
DX: I13.2 Hypertensive heart and chronic kidney disease with heart failure and with stage 5 chronic kidney disease, or end stage renal disease (principal); N18.6 End stage renal disease; I50.9 Heart failure, unspecified; E11.22 Type 2 diabetes mellitus with diabetic chronic kidney disease; I25.10 Atherosclerotic heart disease of native coronary artery without angina pectoris; I25.2 Old myocardial infarction; Z79.899 Other long term (current) drug therapy; Z79.4 Long term (current) use of insulin; Z79.82 Long term (current) use of aspirin

== ENCOUNTER 2021-03-25 08:54 | Day surgery (SDC) | payer MEDICARE, MEDICAID ==
[~2021-03-25] VITALS: Ht 170.2 cm; Wt 67.7 kg
--- NOTE | 2021-03-25 10:05 | NUR ---
Patient taken per cart by Elia Cordero CRNA to PACU to attempt to place IV catheter.
--- NOTE | 2021-03-25 10:05 | NUR ---
Patient admitted to room 2 per wheelchair and transfers to cart with two person assist. Patient is unable to state why he came to the hospital or what his name is. Is not oriented to day or year. DPOA notified and telephone consent obtained from Zainab-sister. #22g INT started right AC and lab drawn. Unable to thread the needle completely in. Accucheck 0f 159 reported to Elia Cordero CRNA and informed of IV difficulty.
[2021-03-25 10:18] VITALS: BP 199/102; PULSE 63; TEMP 97.4
[2021-03-25 10:21] LABS: CALCIUM 8.6 mg/dL (8.4-10.2); CREATININE, serum 5.15 mg/dL (0.72-1.25); POTASSIUM 4.6 mmol/L (3.5-4.5)
[2021-03-25] MEDS ORDERED: CYMBALTA 30MG30 MG PO (12:05)
[2021-03-25 12:58] VITALS: BP 140/75; PULSE 64
--- NOTE | 2021-03-25 12:58 | NUR ---
Patient returns to room 2 per cart from surgery accompanied by El LAWS and Elia Cordero CRNA. Patient awake and alert. Accucheck 211 and IV fluids of D51/2NS discontinued. IV site right IJ that was started by Elia Cordero CRNA prior to surgery. AV fistula site in the right upper arm noted with incisions x3. Wound edges well approximated. Slight thrill noted. Siderails up x2 and call light in reach.
[2021-03-25 13:13] VITALS: BP 107/61; PULSE 58
--- NOTE | 2021-03-25 13:13 | NUR ---
Eating applesauce and drinking water. TV on and watched TV. Answers yes or no questions.
[2021-03-25 13:28] VITALS: BP 145/75; PULSE 68
--- NOTE | 2021-03-25 13:28 | NUR ---
Resting and denies pain when asked. Room air sats 98%.
--- NOTE | 2021-03-25 13:30 | NUR ---
Right IJ discontinued and pressure held for five minutes. No bleeding or swelling at the site.
--- NOTE | 2021-03-25 13:35 | NUR ---
Dressed and assisted into wheelchair with two person assist.
--- NOTE | 2021-03-25 14:17 | NUR ---
Patient dismissed to back to [facility] per wheelchair van with dismissal instructions with patient.
--- NOTE | 2021-03-25 14:50 | NUR ---
Report called to [facility] and left message on cell phone. Provided number to call back for questions and concerns.
[2021-03-26] MEDS ORDERED: CEPHALEXIN500 M1 PO (15:50)
[2021-03-26] MEDS ORDERED: FLORINEF ACETA0.1 MG PO (15:55)
[2021-03-26] MEDS ORDERED: ZOFRAN 4MG T4 MG/TAB PO (15:57)
== END 2021-03-25 14:17 | disposition home or self-care (01) ==
LOC: SDCO 08:54
PROVIDERS: Surgery
DX: I13.2 Hypertensive heart and chronic kidney disease with heart failure and with stage 5 chronic kidney disease, or end stage renal disease (principal); E11.22 Type 2 diabetes mellitus with diabetic chronic kidney disease; N18.6 End stage renal disease; Z79.82 Long term (current) use of aspirin; Z79.4 Long term (current) use of insulin; Z79.899 Other long term (current) drug therapy; D63.1 Anemia in chronic kidney disease; F32.A Depression, unspecified; E78.5 Hyperlipidemia, unspecified; I69.320 Aphasia following cerebral infarction; I50.9 Heart failure, unspecified; K21.9 Gastro-esophageal reflux disease without esophagitis
CPT/HCPCS: C1768; J0360; J0690; J1644; J2405; J2704; J3010

== ENCOUNTER 2021-03-26 05:14 | Inpatient (IN) | payer MEDICARE, MEDICAID ==
[~2021-03-26] VITALS: Ht 170.2 cm; Wt 68.1 kg
[~2021-03-26 05:14] MED LIST changes: +CYMBALTA 30MG30 MG PO
[2021-03-26 05:54] LABS: BASO # 0.1 K/mm3 (0.0-0.2); BASO % 0.4 % (0.0-2.0); EOS # 0.2 K/mm3 (0.0-0.7); GRAN # 8.5 K/mm3 (1.4-6.5); GRAN % 72.2 % (42.2-75.2); HEMATOCRIT 36.2 % (42.0-52.0); HEMOGLOBIN 11.1 g/dl (13.5-18.0); LYMPH # 1.7 K/mm3 (1.2-3.4); LYMPH % 14.1 % (20.0-51.0); MEAN CELL VOLUME 93 fl (80.0-100.0); MEAN CORPUSCULAR HEMOGLOBIN 29 pg (27.0-31.0); MEAN CORPUSCULAR HGB CONC 31 g/dl (33.0-37.0); MONO # 1.2 K/mm3 (0.1-0.6); MONO % 9.9 % (1.7-9.3); PLATELET COUNT 128 K/mm3 (130-400); RED BLOOD COUNT 3.89 M/mm3 (4.20-5.60); REDCELL DISTRIBUTION WIDTH-CV 13.8 % (11.5-14.5)
[2021-03-26 05:59] LABS: INR 0.9 (0.8-3.0); PROTHROMBIN TIME 10.1 SECONDS (9.7-12.8)
[2021-03-26 06:12] LABS: ALBUMIN 2.9 gm/dL (3.4-4.8); BILIRUBIN,TOTAL 0.5 mg/dL (0.2-1.2); C-REACTIVE PROTEIN 1.37 mg/dL (0.00-0.50); CALCIUM 8.6 mg/dL (8.4-10.2); CREATININE, serum 6.76 mg/dL (0.72-1.25); MAGNESIUM 1.8 mg/dL (1.6-2.6); PHOSPHOROUS 4.1 mg/dL (2.3-4.7); POTASSIUM 5.2 mmol/L (3.5-4.5); TOTAL PROTEIN 7.6 gm/dL (6.2-8.1)
[2021-03-26 06:18] LABS: TROPONIN-I 0.016 ng/mL (0.00-0.033)
[2021-03-26 06:31] LABS: COLLECTION METHOD CATHETER
[2021-03-26 06:39] LABS: PH 6 (5-8); SQUAMOUS EPITHELIAL None Seen /hpf; URINE APPEARANCE Turbid; URINE BACTERIA None Seen /hpf; URINE BILIRUBIN Negative (NEGATIVE); URINE BLOOD 2+ (NEGATIVE); URINE COLOR Yellow; URINE GLUCOSE 3+ (NEGATIVE); URINE KETONE Negative (NEGATIVE); URINE LEUKOCYTE ESTERASE 3+ (NEGATIVE); URINE NITRATE Negative (NEGATIVE); URINE PROTEIN(semi-quant) 3+ (NEGATIVE); URINE RBC 20-50 /hpf; URINE UROBILINOGEN Negative (NEGATIVE)
[2021-03-26 08:49] VITALS: BP 144/65; PULSE 70; TEMP 97.7
--- NOTE | 2021-03-26 10:00 | NUR ---
The patient presented to the emergency department for altered mental status. EVELYN contacted the patient's sister/DPOA-HC, Zainab Tinsley (ph#[phone]), to discuss discharge plan. The patient resides at [facility]. His PCP is Dr. Nallely Nunes and his DPOA-HC is in [facility], which designates Zainab. Zainab had some questions about homes in the patient were to pass away here. She had some concerns about his medical status. She would like to talk to the doctor and RN. Zainab reports that plan is for the patient to return back to [facility] upon discharge. EVELYN notified Darren at [facility]. EVELYN to fax updates to [facility]. EVELYN to continue to follow. *Discharge plan: [facility]*
--- NOTE | 2021-03-26 11:13 | NUR ---
PT OFF THE UNIT FOR DIALYSIS.
--- NOTE | 2021-03-26 11:29 | NUR ---
PT HAD A SEIZURE LASTING 1 MINUTE THIS MORNING AT 0900 WITH THIS RN AT BEDSIDE.
--- NOTE | 2021-03-26 12:55 | NUR ---
PATIENT TOLERATED HIS HD TX WITH 520 ML FLUID REMOVAL TODAY. NEXT PLANNED HD TX ON Monday @ 0800.
[2021-03-26 13:13] VITALS: BP 146/81; PULSE 78; TEMP 98.6
[2021-03-26] MEDS ORDERED: CEPHALEXIN500 M1 PO (15:50)
[2021-03-26] MEDS ORDERED: FLORINEF ACETA0.1 MG PO (15:55)
[2021-03-26] MEDS ORDERED: ZOFRAN 4MG T4 MG/TAB PO (15:57)
[2021-03-26 16:13] VITALS: BP 164/64; PULSE 86; TEMP 98.7
--- NOTE | 2021-03-26 18:25 | NUR ---
INFORMED LYLY THAT THE TUBE FEEDING SOLUTION COULD NOT BE OBTAINED DUE TO DIETARY NOT ACTIVATING IT. SAID HE WILL BE ON THE UNIT SHORTLY AND WILL DISCUSS IT THEN.
[2021-03-26 19:58] VITALS: BP 161/72; PULSE 91; TEMP 99.8
[2021-03-26 20:33] VITALS: BP 119/60; PULSE 93; TEMP 99.6
--- NOTE | 2021-03-26 23:06 | NUR ---
Patient assessed around 2009. Alert and oriented to self. Reoriented to time, place, and situation, but forgetful. Denies having pain and discomfort Peripheral IV to right ankle. Denies SOB and dyspnea. LS CTA. Telemetry placed on patient, normal sinus. BSAx4. Bruising to BUE and abdomen. Dressing to old peg tube site to abdomen changed. Called Dr. Tejeda and notified that patient does not have a peg tube, and that he has been taking regular food and fluids at assisted. Order to D/C peg tube feeds, and put patient on renal/ada diet, 1500 FR. Orders placed. Fistula that was just placed to E. HD catheter to left chest. Patient resting in bed with call light within reach. Bed alarm on.
[2021-03-26 23:33] VITALS: BP 122/63; PULSE 88; TEMP 98.4
[2021-03-27] VITALS (9 sets, daily range): BP systolic 87–185; BP diastolic 65–95; PULSE 76–92; TEMP 97.4–99.1
--- NOTE | 2021-03-27 05:52 | NUR ---
Patient has been repositioned in bed. Has denied having pain and discomfort. No s/sx of pain or discomfort noted, such as facial grimacing and moaning. IV fluids continue per orders to IV site in right ankle. In bed with call light within reach. Bed alarm on.
--- NOTE | 2021-03-27 10:42 | NUR ---
PT RESTING IN BED. REFUSES ALL MORNING MEDICATIONS. SHIFT ASSESSMENT COMPLETED. DIALYSIS CATH TO L CHEST HAD A SMALL AMOUNT OF BLOOD DEEPING OUT OF THE DRESSING, CLEANED IT AND WILL CONTINUE TO MONITOR FOR MORE BLOOD. PT REFUSING ALMOST ALL CARE OR JUST IGNORES THE STAFF. CHANGED PT SOILED BREIF AND NOTED SOME YELLOW PUS TO THE NOHEMY AREA. WILL CONTINUE TO MONITOR.
[2021-03-27 14:09] LABS: BASO % 0.3 % (0.0-2.0); EOS # 0.1 K/mm3 (0.0-0.7); EOS % 1.1 % (0-4.0); GRAN # 7.2 K/mm3 (1.4-6.5); GRAN % 76.9 % (42.2-75.2); HEMOGLOBIN 10.4 g/dl (13.5-18.0); LYMPH # 1.1 K/mm3 (1.2-3.4); LYMPH % 11.7 % (20.0-51.0); MEAN CELL VOLUME 90 fl (80.0-100.0); MEAN CORPUSCULAR HEMOGLOBIN 29 pg (27.0-31.0); MEAN CORPUSCULAR HGB CONC 32 g/dl (33.0-37.0); MEAN PLATELET VOLUME 10.9 fl (7.4-10.4); MONO # 0.9 K/mm3 (0.1-0.6); MONO % 9.2 % (1.7-9.3); PLATELET COUNT 144 K/mm3 (130-400); RED BLOOD COUNT 3.65 M/mm3 (4.20-5.60); REDCELL DISTRIBUTION WIDTH-CV 13.6 % (11.5-14.5)
[2021-03-27 14:26] LABS: ALBUMIN 2.6 gm/dL (3.4-4.8); CALCIUM 8.2 mg/dL (8.4-10.2); CREATININE, serum 5.93 mg/dL (0.72-1.25); PHOSPHOROUS 3.5 mg/dL (2.3-4.7); POTASSIUM 4.2 mmol/L (3.5-4.5)
--- NOTE | 2021-03-27 14:59 | NUR ---
PT DIALYSIS CHEST CATHETER LEAKING BLOOD. ENOUGH TO SATURATE THROUGH HIS GOWN TWICE. WILL PLACE GAUZE TO ABSORB AND CONTINUE TO MONITOR.
--- NOTE | 2021-03-27 15:19 | NUR ---
TELEMETRY CALLED TO LET THIS RN KNOW TO PT APPEARED TO BED IN V-FIB. PT AWAKE AND ASYMPTOMATIC. BP OBTAINED 187/86. PT DID REFUSE ALL OF HIS AM MEDICATIONS. WILL GIVE IV HYDRALAZINE. NOTIFIED DR. DESOUZA. WILL OBTAIN AN UPDATED BP IN 30 MINUTES.
--- NOTE | 2021-03-27 17:39 | NUR ---
SPOKE TO DR. DESOUZA ABOUT PT REFUSING MEDICATIONS THIS MORNING. HE INSTRUCTED TO RESUME NORMAL AND CONTINUE TO MONITOR.
--- NOTE | 2021-03-27 22:38 | NUR ---
Patient assessed around 1949. Denies pain and discomfort. Peripheral INT to right ankle. HD catheter to left chest. AV fistula site to TSERING CAGLE restricted. Site with bruising. 1+ edema LUE. Bruising BUE. LS CTA. HRR. Patient took all medications whole with water. In bed with call light within reach. Bed alarm on.
[2021-03-28 04:06] VITALS: BP 141/78; PULSE 80; TEMP 98.2
--- NOTE | 2021-03-28 06:08 | NUR ---
Patient in bed with call light within reach. Checked, changed, and repositioned in bed during rounds. Bed alarm on.
[2021-03-28 07:35] VITALS: BP 154/70; PULSE 76; TEMP 98.9
[2021-03-28 08:03] LABS: BASO % 0.3 % (0.0-2.0); EOS # 0.1 K/mm3 (0.0-0.7); EOS % 1.3 % (0-4.0); GRAN # 7.9 K/mm3 (1.4-6.5); GRAN % 74.5 % (42.2-75.2); LYMPH # 1.4 K/mm3 (1.2-3.4); LYMPH % 12.9 % (20.0-51.0); MEAN CELL VOLUME 90 fl (80.0-100.0); MEAN CORPUSCULAR HGB CONC 32 g/dl (33.0-37.0); MEAN PLATELET VOLUME 10.2 fl (7.4-10.4); MONO # 1.1 K/mm3 (0.1-0.6); MONO % 10.2 % (1.7-9.3); PLATELET COUNT 139 K/mm3 (130-400); REDCELL DISTRIBUTION WIDTH-CV 13.4 % (11.5-14.5)
[2021-03-28 08:09] LABS: HEMATOCRIT 28.8 % (42.0-52.0); HEMOGLOBIN 9.1 g/dl (13.5-18.0); MEAN CORPUSCULAR HEMOGLOBIN 28 pg (27.0-31.0)
[2021-03-28 08:22] LABS: ALBUMIN 2.4 gm/dL (3.4-4.8); CALCIUM 8.1 mg/dL (8.4-10.2); CREATININE, serum 6.93 mg/dL (0.72-1.25); POTASSIUM 4.1 mmol/L (3.5-4.5)
--- NOTE | 2021-03-28 10:30 | NUR ---
PT SITTING UP IN BED EATING BREAKFAST. PT WAS UNRESPONSIVE TOWARDS ME THIS MORNING WHEN I INITIALLY ENTERED ROOM. REFUSED TO AROUSE AND REFUSED MORNING MEDICATIONS. AFTER SEVERAL ATTEMPTS I CONVINCED PT TO TAKE MORNING MEDICATIONS. SHIFT ASSESSMENT COMPLETED. LUE LOOK MUCH IMPROVED. DENIES ANY NEEDS. WILL CONTINUE TO MONITOR.
[2021-03-28 11:53] VITALS: BP 130/63; PULSE 71; TEMP 98.5
--- NOTE | 2021-03-28 14:48 | NUR ---
SW informed by nurse that Dr. Tejeda stated that patient is able to DC after dialysis on 03/29/2021. SW ensured that next caseworker protective services would be made aware of information. EVELYN will continue to follow.
[2021-03-28 16:43] VITALS: BP 126/65; PULSE 66; TEMP 98
[2021-03-28 19:47] VITALS: BP 139/77; PULSE 64; TEMP 97.6
--- NOTE | 2021-03-28 20:00 | NUR ---
Bedside shift report received, assumed care for service department manager. Assessment complete. Alert/partially oriented. VS currently stable. Tele reports SR. Denies pain/nausea/shortness of breath. States he is just very drowsy tonight. Did eat supper and had HS snack. INT to right great saphenous flushes well-no redness swelling noted. HDC to right chest. Fistula to left upper arm-no drainage noted. Plan of care discussed for this shift to include meds/fluid restriction/calling for questions or concerns. Verbalizes understanding/denies current needs. Call light in reach/bed alarm on. Will monitor.
[2021-03-28 23:45] VITALS: BP 139/76; PULSE 71; TEMP 98.5
[2021-03-29 03:57] VITALS: BP 138/68; PULSE 65; TEMP 97.5
--- NOTE | 2021-03-29 06:35 | NUR ---
Slept most of shift. Denied pain/nausea/shortness of breath. VS stable. Denies need. Call light in reach. Will monitor
--- NOTE | 2021-03-29 07:18 | NUR ---
PT LAYING IN BED; PLAN FOR TODAY IS TO GET EEG, BRAIN MRI AND DIALYSIS. FAMILY/DPOA IS CONCERNED THAT THE SEIZURE IS NOT TAKING PRECIDENCE AND WOULD NOT LIKE HIM DISCHARGED UNTIL THEY ADDRESS THE SEIZURE ACTIVITY THAT IS NEW TO THIS PATIENT. NO OTHER CONCERNS AT THIS TIME, WILL CONSULT WITH PROVIDER.
[2021-03-29 07:33] VITALS: BP 134/70; PULSE 63; TEMP 97.5
[2021-03-29 09:30] LABS: MEAN CELL VOLUME 92 fl (80.0-100.0); MEAN CORPUSCULAR HGB CONC 31 g/dl (33.0-37.0); MEAN PLATELET VOLUME 10.9 fl (7.4-10.4); PLATELET COUNT 152 K/mm3 (130-400); RED BLOOD COUNT 3.26 M/mm3 (4.20-5.60); REDCELL DISTRIBUTION WIDTH-CV 13.3 % (11.5-14.5)
[2021-03-29 09:33] LABS: HEMATOCRIT 29.9 % (42.0-52.0); HEMOGLOBIN 9.4 g/dl (13.5-18.0); MEAN CORPUSCULAR HEMOGLOBIN 29 pg (27.0-31.0)
[2021-03-29 09:44] LABS: ALBUMIN 2.4 gm/dL (3.4-4.8); CALCIUM 8.3 mg/dL (8.4-10.2); CREATININE, serum 8.29 mg/dL (0.72-1.25); PHOSPHOROUS 4.6 mg/dL (2.3-4.7); POTASSIUM 3.9 mmol/L (3.5-4.5)
[2021-03-29 10:04] LABS: BAND 6 % (0-10); EOSINOPHIL 2 % (0-4); LYMPHOCYTE 11 % (20.0-51.0); NEUTROPHILS 78 % (42.0-75.2)
[2021-03-29 10:06] LABS: PLATELET ESTIMATE NORMAL (NORMAL)
--- NOTE | 2021-03-29 10:10 | NUR ---
Initial visit; Patient confused, though he thanked Coloring Checker for coming in to visit and offering him God's blessings and to keep him in her prayers.
--- NOTE | 2021-03-29 10:58 | NUR ---
PT IS AT DIALYSIS, AND THE PLAN FOR HIM IS TO D/C BACK TO [facility] TODAY.
[2021-03-29] MEDS ORDERED: OMNICEF 300MG300 MG PO (12:11)
[2021-03-29] MEDS ORDERED: KEPPRA 500MG500 MG PO (12:13)
--- NOTE | 2021-03-29 12:20 | NUR ---
PATIENT TOLERATED HIS HD TX WITH NO FLUID REMOVAL, ATTEMPTED FLUID REMOVAL & PATIENT BECAME HYPOTENSIVE WHICH RESOLVED WITH UF OFF. PATIENT DENIED ANY LIGHTHEADEDNESS. ACTIVASE DWELLED IN EA. CATH PORT POST HD TX FOR DECREASED BFR. NEXT HD TX ON Monday03/31/21 @ [facility].
[2021-03-29 12:33] VITALS: BP 148/81; PULSE 73; TEMP 98.9
--- NOTE | 2021-03-29 13:14 | NUR ---
The patient is to discharge today, 03/29, back to [facility] for a skilled stay. Transportation was scheduled around 1400, via [facility]. SW informed the patient's RN and his sister, Zainab, of the time. They were both agreeable to the time. SW also read the IM form outloud to Zainab. Zainab verbalized understanding and gave SW approval to sign the form on her behalf. No additional needs at this time.
--- NOTE | 2021-03-29 14:53 | NUR ---
[facility] IS HERE TO GALLERY ASSISTANT THE PATIENT.
== END 2021-03-29 15:15 | DRG 689 ==
LOC: COL.ER 05:14 → MEDICAL 06:50
PROVIDERS: Emergency Medicine; ADMIT Internal Medicine Nephrology
PROC: 5A1D70Z Performance of Urinary Filtration, Intermittent, Less than 6 Hours Per Day (ICD-10-PCS; principal; 2021-03-26)
DX: N39.0 Urinary tract infection, site not specified (principal); N18.6 End stage renal disease; G93.41 Metabolic encephalopathy; I50.32 Chronic diastolic (congestive) heart failure; I69.354 Hemiplegia and hemiparesis following cerebral infarction affecting left non-dominant side; E27.40 Unspecified adrenocortical insufficiency; F41.9 Anxiety disorder, unspecified; G89.29 Other chronic pain; M54.9 Dorsalgia, unspecified; I25.10 Atherosclerotic heart disease of native coronary artery without angina pectoris; E11.42 Type 2 diabetes mellitus with diabetic polyneuropathy; I11.0 Hypertensive heart disease with heart failure; D50.9 Iron deficiency anemia, unspecified; F32.A Depression, unspecified; G25.81 Restless legs syndrome; E11.649 Type 2 diabetes mellitus with hypoglycemia without coma; I16.0 Hypertensive urgency; D63.1 Anemia in chronic kidney disease; E11.22 Type 2 diabetes mellitus with diabetic chronic kidney disease; E78.5 Hyperlipidemia, unspecified; R56.9 Unspecified convulsions; Z20.822 Contact with and (suspected) exposure to COVID-19; Z99.2 Dependence on renal dialysis; Z95.5 Presence of coronary angioplasty implant and graft; I25.2 Old myocardial infarction; Z79.82 Long term (current) use of aspirin; Z79.4 Long term (current) use of insulin
CPT/HCPCS: C1768; J0360; J0690; J0696; J1644; J1815; J2405; J2704; J2997; J3010; J7030; Q5105

== ENCOUNTER 2021-03-31 17:33 | Emergency (ER) | payer MEDICARE, MEDICAID ==
[~2021-03-31] VITALS: Ht 170.2 cm; Wt 75.5 kg
[~2021-03-31 17:33] MED LIST changes: +KEPPRA 500MG500 MG PO; +OMNICEF 300MG300 MG PO; +ZOFRAN 4MG T4 MG/TAB PO
[2021-03-31 19:31] VITALS: BP 149/84; PULSE 74; TEMP 98.3
== END 2021-03-31 19:31 ==
LOC: COL.ER 17:33
DX: T82.49XA Other complication of vascular dialysis catheter, initial encounter (principal); I12.0 Hypertensive chronic kidney disease with stage 5 chronic kidney disease or end stage renal disease; E11.22 Type 2 diabetes mellitus with diabetic chronic kidney disease; N18.6 End stage renal disease; I25.2 Old myocardial infarction; Z79.4 Long term (current) use of insulin; Z79.82 Long term (current) use of aspirin; Z79.899 Other long term (current) drug therapy

== ENCOUNTER 2021-04-08 11:52 | Emergency (ER) | payer MEDICARE, MEDICAID ==
[~2021-04-08] VITALS: Ht 172.7 cm; Wt 79.5 kg
[2021-04-08 15:39] VITALS: BP 165/80; PULSE 77; TEMP 98
== END 2021-04-08 15:50 | disposition home or self-care (01) ==
LOC: COL.ER 11:52
DX: I12.0 Hypertensive chronic kidney disease with stage 5 chronic kidney disease or end stage renal disease (principal); E11.22 Type 2 diabetes mellitus with diabetic chronic kidney disease; N18.6 End stage renal disease; I25.2 Old myocardial infarction; Z79.899 Other long term (current) drug therapy; Z79.4 Long term (current) use of insulin

== ENCOUNTER → 2021-04-30 | Outpatient (CLI) | payer MEDICARE, MEDICAID ==
[2021-04-30 11:24] LABS: ALKALINE PHOSPHATASE 89 U/L (40-150); ANION GAP 8 mmol/L (7-16); AST,SGOT 11 U/L (5-34); BILIRUBIN,TOTAL 0.5 mg/dL (0.2-1.2); BLOOD UREA NITROGEN 30 mg/dL (8-26); CARBON DIOXIDE 20 mmol/L (23-31); CHLORIDE 110 mmol/L (98-107); CHOLESTEROL 112 mg/dL (0-199); CHOLESTEROL RISK RATIO 4.1; CREATININE, serum 6.03 mg/dL (0.72-1.25); GLUCOSE 132 mg/dL (70-99); HDL CHOLESTEROL 27 mg/dL (40-60); LDL CHOLESTEROL 55 mg/dL; POTASSIUM 4.4 mmol/L (3.5-4.5); SODIUM 138 mmol/L (136-145); TOTAL PROTEIN 6.8 gm/dL (6.2-8.1); TRIGLYCERIDE 152 mg/dL (0-149)
[2021-04-30 11:27] LABS: ALANINE AMINOTRANSFERASE < 6 U/L (0-55)
[2021-04-30 11:43] LABS: THYROID STIMULATING HORMONE 2.098 uIU/mL (0.350-4.940)
== END ==
LOC: ZLAB.STJ 10:29
PROVIDERS: Internal Medicine
DX: I10 Essential (primary) hypertension (principal); E27.1 Primary adrenocortical insufficiency; R94.5 Abnormal results of liver function studies

== ENCOUNTER 2021-05-08 05:09 | Emergency (ER) | payer MEDICARE, MEDICAID ==
[2021-05-08 05:15] VITALS: TEMP 97.6
[2021-05-08 05:56] LABS: BASO % 0.2 % (0.0-2.0); EOS # 0.3 K/mm3 (0.0-0.7); EOS % 2.7 % (0-4.0); GRAN # 7.2 K/mm3 (1.4-6.5); GRAN % 78.7 % (42.2-75.2); HEMATOCRIT 40.3 % (42.0-52.0); HEMOGLOBIN 12.5 g/dl (13.5-18.0); LYMPH # 0.7 K/mm3 (1.2-3.4); MEAN CELL VOLUME 89 fl (80.0-100.0); MEAN CORPUSCULAR HEMOGLOBIN 28 pg (27.0-31.0); MEAN CORPUSCULAR HGB CONC 31 g/dl (33.0-37.0); MEAN PLATELET VOLUME 10.2 fl (7.4-10.4); MONO # 0.9 K/mm3 (0.1-0.6); MONO % 10.1 % (1.7-9.3); PLATELET COUNT 200 K/mm3 (130-400); RED BLOOD COUNT 4.52 M/mm3 (4.20-5.60); REDCELL DISTRIBUTION WIDTH-CV 13.3 % (11.5-14.5)
[2021-05-08 06:08] LABS: ALBUMIN 3.1 gm/dL (3.4-4.8); BILIRUBIN,TOTAL 0.5 mg/dL (0.2-1.2); CALCIUM 9.2 mg/dL (8.4-10.2); CREATININE, serum 4.61 mg/dL (0.72-1.25); POTASSIUM 3.4 mmol/L (3.5-4.5); TOTAL PROTEIN 7.4 gm/dL (6.2-8.1)
[2021-05-08 08:26] LABS: TROPONIN-I 0.013 ng/mL (0.00-0.033)
[2021-05-08 09:05] VITALS: BP 173/86; PULSE 72
== END 2021-05-08 09:10 | disposition home or self-care (01) ==
LOC: COL.ER 05:09
PROVIDERS: Emergency Medicine
DX: J81.1 Chronic pulmonary edema (principal); R06.89 Other abnormalities of breathing; E87.6 Hypokalemia; E78.5 Hyperlipidemia, unspecified; E11.22 Type 2 diabetes mellitus with diabetic chronic kidney disease; I12.0 Hypertensive chronic kidney disease with stage 5 chronic kidney disease or end stage renal disease; N18.6 End stage renal disease; Z99.2 Dependence on renal dialysis; Z20.822 Contact with and (suspected) exposure to COVID-19; Z79.4 Long term (current) use of insulin; Z79.899 Other long term (current) drug therapy

== ENCOUNTER → 2021-06-08 | Outpatient (CLI) | payer MEDICARE, MEDICAID ==
[~2021-06-08] MED LIST changes: +LEVAQUIN 5500 MG/TA1 PO
== END ==
LOC: COL.RAD 12:56
DX: J90 Pleural effusion, not elsewhere classified (principal)

== ENCOUNTER 2021-06-14 06:17 | Emergency (ER) | payer MEDICARE, MEDICAID ==
[~2021-06-14] VITALS: Ht 175.3 cm; Wt 72.7 kg
[~2021-06-14 06:17] MED LIST changes: -LEVAQUIN 5500 MG/TA1 PO
[2021-06-14 07:03] LABS: BASO % 0.2 % (0.0-2.0); EOS % 0.2 % (0.0-4.0); GRAN # 15.1 K/mm3 (1.4-6.5); HEMATOCRIT 40.8 % (42.0-52.0); HEMOGLOBIN 12.5 g/dl (13.5-18.0); LYMPH # 0.9 K/mm3 (1.2-3.4); LYMPH % 5.4 % (20.0-51.0); MEAN CELL VOLUME 89 fl (80.0-100.0); MEAN CORPUSCULAR HEMOGLOBIN 27 pg (27-31); MEAN CORPUSCULAR HGB CONC 31 g/dl (33.0-37.0); MEAN PLATELET VOLUME 10.5 fl (7.4-10.4); MONO # 1.1 K/mm3 (0.1-0.6); MONO % 6.6 % (1.7-9.3); PLATELET COUNT 204 K/mm3 (130-400); RED BLOOD COUNT 4.59 M/mm3 (4.20-5.60); REDCELL DISTRIBUTION WIDTH-CV 13.7 % (11.5-14.5)
[2021-06-14 07:10] LABS: ALBUMIN 2.6 gm/dL (3.4-4.8); BILIRUBIN,TOTAL 0.5 mg/dL (0.2-1.2); CALCIUM 8.9 mg/dL (8.4-10.2); CREATININE, serum 7.35 mg/dL (0.72-1.25); POTASSIUM 5.4 mmol/L (3.5-4.5); TOTAL PROTEIN 7.6 gm/dL (6.2-8.1)
[2021-06-14 09:30] VITALS: TEMP 97.6
[2021-06-14 09:37] LABS: COLLECTION METHOD CATHETER
[2021-06-14 09:49] LABS: PH 7 (5-8); SQUAMOUS EPITHELIAL None Seen /hpf (0-10); URINE APPEARANCE Turbid (CLEAR/HAZY); URINE BACTERIA Rare /hpf (NONE SEEN); URINE BILIRUBIN Negative (NEGATIVE); URINE BLOOD 1+ (NEGATIVE); URINE COLOR Amber (YELLOW); URINE GLUCOSE 3+ (NEGATIVE); URINE KETONE Negative (NEGATIVE); URINE LEUKOCYTE ESTERASE 3+ (NEGATIVE); URINE NITRATE Negative (NEGATIVE); URINE PROTEIN(semi-quant) 3+ (NEGATIVE); URINE RBC >50 /hpf (0-2); URINE UROBILINOGEN Negative (NEGATIVE)
[2021-06-14] MEDS ORDERED: LEVAQUIN 5500 MG/TA1 PO (10:50)
[2021-06-14 11:42] VITALS: BP 178/90; PULSE 82
== END 2021-06-14 11:42 | disposition home or self-care (01) ==
LOC: COL.ER 06:17
PROVIDERS: Family Medicine; Personal Emergency Response Attendant
DX: E11.22 Type 2 diabetes mellitus with diabetic chronic kidney disease (principal); I12.0 Hypertensive chronic kidney disease with stage 5 chronic kidney disease or end stage renal disease; N18.6 End stage renal disease; E78.5 Hyperlipidemia, unspecified; Z99.2 Dependence on renal dialysis; Z79.4 Long term (current) use of insulin; Z79.899 Other long term (current) drug therapy

== ENCOUNTER 2021-09-10 06:11 | Inpatient (IN) | payer MEDICARE, MEDICAID ==
[~2021-09-10] VITALS: Ht 165.1 cm; Wt 61.3 kg
[2021-09-10] VITALS (8 sets, daily range): BP systolic 139–186; BP diastolic 67–108; PULSE 65–82; TEMP 97.6–98.2
[~2021-09-10 06:11] MED LIST changes: +LEVAQUIN 5500 MG/TA1 PO
[2021-09-10 06:29] LABS: BASO % 0.4 % (0.0-2.0); EOS # 0.4 K/mm3 (0.0-0.7); EOS % 3.9 % (0.0-4.0); GRAN # 7.5 K/mm3 (1.4-6.5); HEMATOCRIT 37.3 % (42.0-52.0); HEMOGLOBIN 11.8 g/dl (13.5-18.0); LYMPH # 1.4 K/mm3 (1.2-3.4); LYMPH % 13.8 % (20.0-51.0); MEAN CELL VOLUME 92 fl (80.0-100.0); MEAN CORPUSCULAR HEMOGLOBIN 29 pg (27-31); MEAN CORPUSCULAR HGB CONC 32 g/dl (33.0-37.0); MEAN PLATELET VOLUME 10.3 fl (7.4-10.4); MONO % 9.4 % (1.7-9.3); PLATELET COUNT 181 K/mm3 (130-400); RED BLOOD COUNT 4.06 M/mm3 (4.20-5.60)
[2021-09-10 06:40] LABS: COLLECTION METHOD CATHETER
[2021-09-10 06:45] LABS: ALBUMIN 3.3 gm/dL (3.4-4.8); BILIRUBIN,TOTAL 0.5 mg/dL (0.2-1.2); CALCIUM 8.5 mg/dL (8.4-10.2); CREATININE, serum 5.25 mg/dL (0.72-1.25); POTASSIUM 4.7 mmol/L (3.5-4.5); TOTAL PROTEIN 7.3 gm/dL (6.2-8.1)
[2021-09-10 06:48] LABS: PH 7 (5-8); SQUAMOUS EPITHELIAL None Seen /hpf (0-10); URINE APPEARANCE Turbid (CLEAR/HAZY); URINE BACTERIA None Seen /hpf (NONE SEEN); URINE BILIRUBIN Negative (NEGATIVE); URINE BLOOD 1+ (NEGATIVE); URINE COLOR Yellow (YELLOW); URINE GLUCOSE 3+ (NEGATIVE); URINE KETONE Negative (NEGATIVE); URINE LEUKOCYTE ESTERASE 3+ (NEGATIVE); URINE NITRATE Negative (NEGATIVE); URINE PROTEIN(semi-quant) 2+ (NEGATIVE); URINE RBC >50 /hpf (0-2); URINE UROBILINOGEN Negative (NEGATIVE)
[2021-09-10 06:51] LABS: TROPONIN-I 0.013 ng/mL (0.00-0.033)
--- NOTE | 2021-09-10 12:24 | NUR ---
PATIENT TOLERATED HD TX WITH 1,745 ML OF FLUID REMOVED, ATTEMPTED INCREASED FLUID REMOVAL & PATIENT BECAME HYPOTENSIVE WHICH RESOLVED WITH DECREASED UF GOAL. NEXT PLANNED HD TX ON Monday09/13/21 @ 0830.
--- NOTE | 2021-09-10 13:56 | NUR ---
PATIENT AWAKE BUT REMAINS DISORIENTED, UNABLE TO STATE CORRECT NAME, BIRTHDATE, LOCATION OR YEAR. FLOOR RN STATES THIS IS NOT NEW FOR THIS HOSPITAL ADMISSION. NO REPORTS OF PAIN AT THIS TIME. CONSENT VERIFIED. SEE MERGE FOR DETAILS ABOUT PROCEDURE INCLUDING HEMODYNAMIC MONITORING WELL MEDICATION ADMINISTRATION.
--- NOTE | 2021-09-10 14:50 | NUR ---
ADMISSION INTAKE COMPLETED. PT OFF OF UNIT AT THIS TIME. SISTER WAITING IN ROOM. WILL OBTAIN MEDICATION LIST FROM [facility].
[2021-09-10 15:31] LABS: PROTHROMBIN TIME 11.3 SECONDS (9.7-12.8)
[2021-09-10 15:50] LABS: PARTIAL THROMBOPLASTIN TIME 141.7 SECONDS (26.0-37.0)
[2021-09-10] MEDS ORDERED: SODIUM BICARBO650 MG PO ×2 (16:07)
[2021-09-10] MEDS ORDERED: VOLTAREN GEL 1%1 TU TP (16:10)
[2021-09-10] MEDS ORDERED: CYMBALTA 30MG30 MG PO (16:32)
[2021-09-10] MEDS ORDERED: APRESOLINE 10MG10 MG PO (16:45)
[2021-09-10] MEDS ORDERED: PRILOSEC 20MG20 MG PO (16:47)
[2021-09-10] MEDS ORDERED: KEPPRA 500MG500 MG PO (16:48)
--- NOTE | 2021-09-10 16:58 | NUR ---
MED REC UPDATED. SHIFT ASSESSMENT COMPLETED. CURRENTLY ON POST-OP VITALS, VSS. FISTULA DRESSING C/D/I. WILL CONTINUE TO MONITOR.
--- NOTE | 2021-09-10 23:16 | NUR ---
ASSESSMENT COMPLETE; PATIENT RESTING COMFORTABLY IN BED. ALERT TO SELF AT THIS TIME. DISORIENTED TO PLACE AND TIME. BASELINE LEFT FACIAL DROOP. WILL CONTINUE TO MONITOR
[2021-09-11] VITALS (7 sets, daily range): BP systolic 150–195; BP diastolic 69–88; PULSE 72–96; TEMP 97.5–98.3
--- NOTE | 2021-09-11 08:00 | NUR ---
THE PATIENT IS AWAKE AND ALERT IN BED. DENIES ANY PAIN AT THIS TIME. THE PATIENT DOES HAVE SOME LEFT UPPER EXTREMITY SWELLING FROM THE FISTULAGRAM. IT IS PITTING +2. NO OTHER CONCERNS. WILL CONTINUE TO MONITOR PATIENT THROUGH THE DAY WITH STUDENT NURSEBRAYDEN.
--- NOTE | 2021-09-11 09:07 | NUR ---
REPORT GIVEN TO EUSEBIA BONILLA.
--- NOTE | 2021-09-11 15:38 | NUR ---
SW met with patient to complete intake. Patient was unable to recall answers to questions. SW contacted sister Zainab who is also appointed as power of litigation attorney. Zainab [phone]. Patient lives at [facility], and receives assistance from staff with care. PCP is Dr. Nunes and medications from the facility pharmacy. DC plan is to return to [facility]. SW will continue to follow. DC plan: back to [facility]
--- NOTE | 2021-09-11 23:18 | NUR ---
Pt alert and oriented to person and place, disoriented to year. Calm and cooperative, sleepy this evening. Pt denies pain. Shift assessment performed. Noted scattered small bruises on the arms bilaterally. 2+ edema noted in the left arm. Fistula in left arm is covered with a clean gauze. No redness or drainage noted. Thrill palpated and bruit ausculatated. No edema noted in the BLE. Medications administered per orders and education provided. Pt tolerated well. BP was elevated at 190/88. Administered ordered evening BP medications and will wait on the prn hydralazine to see if BP improves. Vital signs stable otherwise. Pt asleep in room. Bed low and locked. New PIV placed into the RAC by ED provider. Pt reports no questions. No concerns at this time, will continue to monitor.
--- NOTE | 2021-09-12 00:43 | NUR ---
Pt's BP 185/86. Administered prn hydralazine per orders for systolic BP >160. Will re-assess pt's BP.
[2021-09-12 04:00] VITALS: BP 167/79; PULSE 71; TEMP 98.2
--- NOTE | 2021-09-12 04:28 | NUR ---
Pt had an uneventful evening. Slept overnight. Alert when awoken, but still disoriented to time and place. Calm and cooperative. Medications administered per orders and pt tolerated pills with water. BP decreased after prn hydralazine to 167/79. All other vital signs have remained WNL. Pt resting now, denies pain. Incontinent of bowel and bladder overnight. Pt does not report any questions, will continue to monitor.
--- NOTE | 2021-09-12 05:38 | NUR ---
Went into pt's room to administer protonix this morning and pt is refusing to take the medication. He turns his head away and yells "no". I re-attempted and encouraged the pt to take the pill multiple times but he continued to refuse. I educated the pt on the medication and the medication purpose, but he still turns his head the opposite way and tightly closes his mouth.
--- NOTE | 2021-09-12 06:13 | NUR ---
Pt's bed does not work currently. Bed functions are unable to work, so we are unable to obtain a daily weight this morning. A work order was placed to fix the bed.
--- NOTE | 2021-09-12 06:40 | NUR ---
THE PATIENT WAS SLEEPING UPON ENTRY, LAB WAS HERE TO GET LABS. THIS RN OBTAINED LABS. NO OTHER CONCERNS. PATIENT IS VERY SLEEPY, DID NOT WAKE DURING LAB DRAW.
[2021-09-12 07:05] VITALS: BP 159/77; PULSE 67; TEMP 98.2
[2021-09-12 07:17] LABS: BASO % 0.2 % (0.0-2.0); EOS # 0.1 K/mm3 (0.0-0.7); EOS % 0.6 % (0.0-4.0); GRAN # 7.9 K/mm3 (1.4-6.5); GRAN % 78.2 % (42.2-75.2); LYMPH # 1.2 K/mm3 (1.2-3.4); LYMPH % 11.7 % (20.0-51.0); MEAN CELL VOLUME 93 fl (80.0-100.0); MEAN CORPUSCULAR HGB CONC 31 g/dl (33.0-37.0); MEAN PLATELET VOLUME 10.4 fl (7.4-10.4); MONO # 0.9 K/mm3 (0.1-0.6); MONO % 8.8 % (1.7-9.3); PLATELET COUNT 141 K/mm3 (130-400); RED BLOOD COUNT 3.48 M/mm3 (4.20-5.60); REDCELL DISTRIBUTION WIDTH-CV 15.1 % (11.5-14.5)
[2021-09-12 07:23] LABS: HEMATOCRIT 32.4 % (42.0-52.0); HEMOGLOBIN 9.9 g/dl (13.5-18.0); MEAN CORPUSCULAR HEMOGLOBIN 28 pg (27-31)
[2021-09-12 07:38] LABS: ALBUMIN 3.1 gm/dL (3.4-4.8); CALCIUM 8.3 mg/dL (8.4-10.2); CREATININE, serum 5.67 mg/dL (0.72-1.25); PHOSPHOROUS 4.1 mg/dL (2.3-4.7); POTASSIUM 4.3 mmol/L (3.5-4.5)
[2021-09-12 09:06] VITALS: BP 176/80
--- NOTE | 2021-09-12 09:30 | NUR ---
PT IS VERY DROWSY, NOT ABLE TO ANSWER QUESTIONS FOR DR. CLARK. DR. CLARK FEELS IT'S BEST FOR THE PATIENT TO HAVE INTERVENTIONAL RADIOLOGY PERFORM THE THORACENTESIS. THE PATIENT WAS STERNAL RUBBED BY DR. CLARK, AND THE PATIENT TALKED MINIMALLY. THIS IS A CHANGE FROM YESTERDAY. CONTACTED SHAHID VILLAR REGARDING THE PATIENT REFUSING PO MEDICATIONS. BLOOD PRESSURE IS INCREASED, AND APRESOLINE PRN IS PO, THE PATIENT IS REFUSING. CALLED JIAN FOR IV ORDER TO ASSIST IN BRINGING DOWN THE PATIENT'S BLOOD PRESSURE.
[2021-09-12 11:31] VITALS: BP 171/83; PULSE 66; TEMP 97.8
[2021-09-12 15:29] VITALS: BP 146/62; PULSE 58; TEMP 97.6
[2021-09-12 20:17] VITALS: BP 182/73; PULSE 68; TEMP 97.2
[2021-09-13] VITALS (8 sets, daily range): BP systolic 105–178; BP diastolic 60–81; PULSE 63–78; TEMP 97.6–98.8
[2021-09-13 05:54] LABS: BASO % 0.2 % (0.0-2.0); EOS # 0.2 K/mm3 (0.0-0.7); EOS % 2.3 % (0.0-4.0); GRAN # 6.3 K/mm3 (1.4-6.5); GRAN % 71.9 % (42.2-75.2); LYMPH # 1.3 K/mm3 (1.2-3.4); LYMPH % 14.8 % (20.0-51.0); MEAN CELL VOLUME 92 fl (80.0-100.0); MEAN CORPUSCULAR HEMOGLOBIN 28 pg (27-31); MEAN CORPUSCULAR HGB CONC 31 g/dl (33.0-37.0); MEAN PLATELET VOLUME 10.7 fl (7.4-10.4); MONO # 0.9 K/mm3 (0.1-0.6); MONO % 10.5 % (1.7-9.3); PLATELET COUNT 135 K/mm3 (130-400); RED BLOOD COUNT 3.53 M/mm3 (4.20-5.60); REDCELL DISTRIBUTION WIDTH-CV 15.1 % (11.5-14.5)
[2021-09-13 06:03] LABS: HEMATOCRIT 32.6 % (42.0-52.0)
[2021-09-13 06:13] LABS: CALCIUM 8.3 mg/dL (8.4-10.2); CREATININE, serum 6.93 mg/dL (0.72-1.25); PHOSPHOROUS 4.4 mg/dL (2.3-4.7); POTASSIUM 4.5 mmol/L (3.5-4.5)
--- NOTE | 2021-09-13 10:00 | NUR ---
Initial visit; Patient thanked Bedspread Seamer for looking in on him and offering prayer and God's blessings. Bedspread Seamer will follow up.
--- NOTE | 2021-09-13 10:14 | NUR ---
PT IS ALERT, BUT ONLY ORIENTED TO HIMSELF. HE IS ASKING FOR FOOD, AND DRINK TODAY. THORACENTESIS WAS SCHEDULED FOR TODAY BUT THEY WILL HAVE TO DO IT TOMORROW. DIALYSIS SCHEDULED FOR THIS AFTERNOON. MEDICATIONS BEING GIVEN AT THIS TIME. NO OTHER CONCERNS. WILL CONTINUE TO MONITOR.
--- NOTE | 2021-09-13 14:36 | NUR ---
Patient's clinical updates faxed to [facility].
--- NOTE | 2021-09-13 16:24 | NUR ---
PATIENT TOLERATED HD TX WITH 4L OF FLUID REMOVED. NEXT PLANNED HD TX ON Monday09/15/21 @ 0830.
--- NOTE | 2021-09-13 22:58 | NUR ---
Pt alert but pleasantly confused this evening. Able to state his name amd birthday correctly, but disoriented to place and date. [place] and was unable to state a year. Shift assessment performed. Medications administered as ordered and education provided. Pt tolerated pills well with applesauce. Blood sugar was 169 this evening, no insulin required. BP was 175/72. Pt had scheduled BP meds this evening that were administered, will re-assess BP. Vital signs stable. Left arm still has some 1-2+ edema. Pt pulled off left arm fistula dressing, so I replaced it with a new one. Fistula site is clean and dry. Bruit auscultated and thrill palpated. Pt is resting in bed currently. Pt reports no questions at this time. No new concerns, will continue to monitor.
[2021-09-14 04:37] VITALS: BP 172/80; PULSE 81; TEMP 98.5
[2021-09-14 06:20] LABS: BASO % 0.3 % (0.0-2.0); EOS # 0.3 K/mm3 (0.0-0.7); EOS % 2.3 % (0.0-4.0); GRAN # 8.2 K/mm3 (1.4-6.5); GRAN % 76.9 % (42.2-75.2); HEMOGLOBIN 11.1 g/dl (13.5-18.0); LYMPH # 1.1 K/mm3 (1.2-3.4); LYMPH % 10.3 % (20.0-51.0); MEAN CELL VOLUME 92 fl (80.0-100.0); MEAN CORPUSCULAR HEMOGLOBIN 29 pg (27-31); MEAN CORPUSCULAR HGB CONC 31 g/dl (33.0-37.0); MEAN PLATELET VOLUME 10.2 fl (7.4-10.4); MONO % 9.7 % (1.7-9.3); PLATELET COUNT 141 K/mm3 (130-400); RED BLOOD COUNT 3.88 M/mm3 (4.20-5.60); REDCELL DISTRIBUTION WIDTH-CV 15.1 % (11.5-14.5)
[2021-09-14 06:21] LABS: HEMATOCRIT 35.5 % (42.0-52.0)
--- NOTE | 2021-09-14 06:25 | NUR ---
Pt had an uneventful night. Alert, but still pleasantly confused. Pt had minimal to no urine output overnight. Bladder scanned him this morning and he has 350 ml in the bladder. We encouraged pt to void and he could not. There are no orders for a catheter placement. Will discuss with dayshift and notify provider. Vitals signs stable. BP still running high. Prn hydralazine administered x2. Will reassess BP. Pt tolerated pills well overnight with applesauce. Will continue to monitor.
[2021-09-14 06:35] LABS: ALBUMIN 3.5 gm/dL (3.4-4.8); CALCIUM 8.9 mg/dL (8.4-10.2); CREATININE, serum 4.89 mg/dL (0.72-1.25); PHOSPHOROUS 2.5 mg/dL (2.3-4.7); POTASSIUM 4.1 mmol/L (3.5-4.5)
[2021-09-14 09:00] LABS: PLEURAL FLUID APPEARANCE HAZY; PLEURAL FLUID COLOR YELLOW
[2021-09-14 09:08] LABS: PLEURAL FLUID RBC 4000 /mm3 (0-0); PLEURAL FLUID WBC 518 /mm3
--- NOTE | 2021-09-14 11:49 | NUR ---
Social Work student faxed updates to Darren at [facility].
[2021-09-14 12:03] VITALS: BP 165/72; PULSE 77; TEMP 98.6
--- NOTE | 2021-09-14 13:23 | NUR ---
Notified of patient being ready for discharge. Contact made with Darren who states that he got the updates and will strat working on a transportation time. SW notified MILES Hawkins that [facility] is able to accept this patient back today. Covid swab requested.
[2021-09-14] MEDS ORDERED: AMOXICILLIN/CLA1 TA1 PO (13:34)
--- NOTE | 2021-09-14 14:53 | NUR ---
Darren with [facility] states that transportation can be here at 1515 for moss picker. Patients discharge orders faxed to Darren. Patient's RN notified. Discharge plan: [facility] @[id number]
== END 2021-09-14 15:15 | DRG 673 ==
LOC: COL.ER 06:11 → MEDICAL 07:04
PROVIDERS: Emergency Medicine; Internal Medicine Sleep Medicine; Registered Nurse; ADMIT Internal Medicine Nephrology
PROC: 057A3ZZ Dilation of Left Brachial Vein, Percutaneous Approach (ICD-10-PCS; principal; 2021-09-10)
PROC: 057F3ZZ Dilation of Left Cephalic Vein, Percutaneous Approach (ICD-10-PCS; 2021-09-10)
PROC: 5A1D70Z Performance of Urinary Filtration, Intermittent, Less than 6 Hours Per Day (ICD-10-PCS; 2021-09-10)
PROC: 0W9B3ZZ Drainage of Left Pleural Cavity, Percutaneous Approach (ICD-10-PCS; 2021-09-14)
DX: N39.0 Urinary tract infection, site not specified (principal); N18.6 End stage renal disease; I13.2 Hypertensive heart and chronic kidney disease with heart failure and with stage 5 chronic kidney disease, or end stage renal disease; I50.32 Chronic diastolic (congestive) heart failure; G93.40 Encephalopathy, unspecified; J90 Pleural effusion, not elsewhere classified; E78.5 Hyperlipidemia, unspecified; E11.22 Type 2 diabetes mellitus with diabetic chronic kidney disease; E87.5 Hyperkalemia; Z66 Do not resuscitate; F41.9 Anxiety disorder, unspecified; G89.29 Other chronic pain; M54.9 Dorsalgia, unspecified; I25.10 Atherosclerotic heart disease of native coronary artery without angina pectoris; E11.42 Type 2 diabetes mellitus with diabetic polyneuropathy; D50.9 Iron deficiency anemia, unspecified; F32.9 Major depressive disorder, single episode, unspecified; G25.81 Restless legs syndrome; D69.6 Thrombocytopenia, unspecified; D63.1 Anemia in chronic kidney disease; Z95.5 Presence of coronary angioplasty implant and graft; Z99.2 Dependence on renal dialysis; I25.2 Old myocardial infarction; Z79.82 Long term (current) use of aspirin; Z79.4 Long term (current) use of insulin; Z91.15 Patient's noncompliance with renal dialysis
CPT/HCPCS: C1725; C1769; C1894; J0360; J0696; J1644; J7030; Q9967

== ENCOUNTER → 2021-10-08 | Outpatient (CLI) | payer MEDICARE, MEDICAID ==
[~2021-10-08] MED LIST changes: +AMOXICILLIN/CLA1 TA1 PO; +APRESOLINE 10MG10 MG PO; +SODIUM BICARBO650 MG PO; +VOLTAREN GEL 1%1 TU TP
[2021-10-08 15:26] LABS: BILIRUBIN,TOTAL 0.4 mg/dL (0.2-1.2); CALCIUM 8.7 mg/dL (8.4-10.2); CREATININE, serum 5.49 mg/dL (0.72-1.25); POTASSIUM 4.7 mmol/L (3.5-4.5); TOTAL PROTEIN 7.1 gm/dL (6.2-8.1)
== END ==
LOC: ZLAB.STJ 15:15
PROVIDERS: Internal Medicine
DX: I25.10 Atherosclerotic heart disease of native coronary artery without angina pectoris (principal); E78.5 Hyperlipidemia, unspecified; E11.42 Type 2 diabetes mellitus with diabetic polyneuropathy

== ENCOUNTER → 2021-10-15 | Outpatient (CLI) | payer MEDICARE, MEDICAID ==
[2021-10-15 10:43] LABS: ALBUMIN 2.8 gm/dL (3.4-4.8); BILIRUBIN,TOTAL 0.4 mg/dL (0.2-1.2); CALCIUM 8.2 mg/dL (8.4-10.2); CHOLESTEROL RISK RATIO 2.6; CREATININE, serum 5.6 mg/dL (0.72-1.25); POTASSIUM 5.3 mmol/L (3.5-4.5); TOTAL PROTEIN 6.2 gm/dL (6.2-8.1)
== END ==
LOC: ZLAB.STJ 10:00
PROVIDERS: Internal Medicine
DX: Z01.89 Encounter for other specified special examinations (principal)

== ENCOUNTER 2021-11-02 10:39 | Outpatient (CLI) | payer MEDICARE, MEDICAID ==
[~2021-11-02] VITALS: Ht 165.1 cm; Wt 88.3 kg
[2021-11-02] MEDS ORDERED: NORVASC2.5 MG PO (12:05)
[2021-11-02] MEDS ORDERED: B-121000 MCG PO (12:07)
[2021-11-02] MEDS ORDERED: FOLIC ACID 11 MG/TA1 PO (12:10)
[2021-11-02] MEDS ORDERED: CATAPRES 0.1MG0.1 MG PO (12:11)
[2021-11-02] MEDS ORDERED: NOVOLOG 100U100 U/M1 SQ (12:21)
[2021-11-02 12:23] VITALS: BP 119/72; PULSE 58; TEMP 97.4
--- NOTE | 2021-11-02 13:24 | NUR ---
Pt her for procedure with SNF staff.Pt unable to sign consent for procedure.Multiple attempts made to reach sister,DPOA.Messages left.Office notifed and attempted to reach sister.Per SNF staff they will reschedule procedure when able to reach sister for consent.Dr Li notified by Sheyla Garcia.
--- NOTE | 2021-11-02 13:59 | NUR ---
Procedure cancelled until consent is able to be obtained from DPOA.Discharge instructions given to SNF staff accampanying pt.
--- NOTE | 2021-11-02 14:28 | NUR ---
Discharge instructions given to pt.Pt verbalizes understanding.INT removed,catheter tip intact.Pt escorted out with SNF staff.report to med aid that came with pt.
== END 2021-11-02 14:29 ==
LOC: COL.CAR 10:39
DX: T82.858A Stenosis of other vascular prosthetic devices, implants and grafts, initial encounter (principal); Z53.8 Procedure and treatment not carried out for other reasons

== ENCOUNTER → 2021-11-08 | Outpatient (CLI) | payer MEDICARE, MEDICAID ==
[2021-11-08 10:06] LABS: ALBUMIN 2.8 gm/dL (3.4-4.8); BILIRUBIN,TOTAL 0.4 mg/dL (0.2-1.2); CALCIUM 8.4 mg/dL (8.4-10.2); CHOLESTEROL RISK RATIO 3.7; CREATININE, serum 6.45 mg/dL (0.72-1.25); POTASSIUM 4.7 mmol/L (3.5-4.5); THYROID STIMULATING HORMONE 3.355 uIU/mL (0.350-4.940); TOTAL PROTEIN 6.9 gm/dL (6.2-8.1)
== END ==
LOC: ZLAB.STJ 09:48
PROVIDERS: Internal Medicine
DX: Z01.89 Encounter for other specified special examinations (principal)

== ENCOUNTER → 2021-12-20 | Outpatient (CLI) | payer MEDICARE, MEDICAID ==
[2021-12-20 07:22] VITALS: BP 185/89; PULSE 61; TEMP 97.9
--- NOTE | 2021-12-20 07:50 | NUR ---
pt states he did not taek meds this am. unable to get [facility] to verify meds taken or not.
--- NOTE | 2021-12-20 08:45 | NUR ---
SISTER ARRIVES AND ASKSED TO GO WITH PT TO PROCEDURE. VERIFIED WITH ULTRASOUND STAFF THAT PT'S SISTER CAN BE IN ROOM, YES.
--- NOTE | 2021-12-20 10:20 | NUR ---
DR CISNEROS REMOVED 1600 YELLOW FLUID. CXR IS NEGATIVE
== END ==
LOC: COL.RAD 07:04
DX: J90 Pleural effusion, not elsewhere classified (principal)

== ENCOUNTER 2022-03-24 11:19 | Outpatient (CLI) | payer MEDICARE, MEDICAID ==
[~2022-03-24] VITALS: Ht 170.2 cm; Wt 57.9 kg
[~2022-03-24 11:19] MED LIST changes: +LANTUS100 U/ML SQ
[2022-03-24 13:30] VITALS: BP 196/89; PULSE 59; TEMP 97.9
[2022-03-24] MEDS ORDERED: COZAAR100 MG PO (13:45)
[2022-03-24] MEDS ORDERED: ATROVENT I0.2 MG/1 M IH (13:46)
[2022-03-24] MEDS ORDERED: VOLTAREN GEL 1%1 TU TP (13:49)
[2022-03-24] MEDS ORDERED: CYMBALTA 30MG30 MG PO (13:49)
[2022-03-24] MEDS ORDERED: PHOS LO PO (13:58)
[2022-03-24 13:59] VITALS: PULSE 62
[2022-03-24] MEDS ORDERED: BASAGLAR K100 UNIT/1 SQ (14:00)
[2022-03-24] MEDS ORDERED: NEPHROCAP PO (14:02)
--- NOTE | 2022-03-24 14:05 | NUR ---
SEE MERGE FOR VITAL SIGNS, ASSESSMENT, INTERVENTIONS AND MEDICATIONS GIVEN.
[2022-03-24 14:55] VITALS: BP 184/91; PULSE 59
[2022-03-24 15:01] VITALS: BP 181/88; PULSE 58
[2022-03-24 15:15] VITALS: BP 186/91; PULSE 60
[2022-03-24 15:30] VITALS: BP 186/103; PULSE 58
--- NOTE | 2022-03-24 16:13 | NUR ---
Pt escorted out via [facility] in care of snf transportation.
== END 2022-03-24 17:28 ==
LOC: COL.CAR 11:19
DX: T82.590A Other mechanical complication of surgically created arteriovenous fistula, initial encounter (principal); Z99.2 Dependence on renal dialysis; Z87.891 Personal history of nicotine dependence
CPT/HCPCS: C1769; J1644; J2250; J3010; Q9967

== ENCOUNTER 2022-03-25 17:51 | Emergency (ER) | payer MEDICARE, MEDICAID ==
[~2022-03-25] VITALS: Ht 172.7 cm; Wt 68.2 kg
[~2022-03-25 17:51] MED LIST changes: +ATROVENT I0.2 MG/1 M IH; +BASAGLAR K100 UNIT/1 SQ; +NEPHROCAP PO; +PHOS LO PO
[2022-03-25 18:05] VITALS: TEMP 97.7
[2022-03-25 19:34] LABS: BASO % 0.3 % (0.0-2.0); EOS # 0.1 K/mm3 (0.0-0.7); EOS % 1.2 % (0.0-4.0); GRAN # 9.7 K/mm3 (1.4-6.5); GRAN % 85.2 % (42.2-75.2); HEMOGLOBIN 10.7 g/dl (13.5-18.0); LYMPH # 0.7 K/mm3 (1.2-3.4); MEAN CELL VOLUME 92 fl (80.0-100.0); MEAN CORPUSCULAR HEMOGLOBIN 30 pg (27-31); MEAN CORPUSCULAR HGB CONC 32 g/dl (33.0-37.0); MEAN PLATELET VOLUME 10.3 fl (7.4-10.4); MONO # 0.8 K/mm3 (0.1-0.6); MONO % 6.8 % (1.7-9.3); PLATELET COUNT 127 K/mm3 (130-400); REDCELL DISTRIBUTION WIDTH-CV 14.4 % (11.5-14.5)
[2022-03-25 19:42] LABS: PROTHROMBIN TIME 11.3 SECONDS (9.7-12.8)
[2022-03-25 19:45] LABS: PARTIAL THROMBOPLASTIN TIME 31.2 SECONDS (26.0-37.0)
[2022-03-25 19:53] LABS: ALBUMIN 3.4 gm/dL (3.4-4.8); BILIRUBIN,TOTAL 0.6 mg/dL (0.2-1.2); CALCIUM 9.1 mg/dL (8.4-10.2); CREATININE, serum 5.92 mg/dL (0.72-1.25); POTASSIUM 4.7 mmol/L (3.5-4.5); TOTAL PROTEIN 7.6 gm/dL (6.2-8.1)
[2022-03-25 21:15] VITALS: BP 186/92; PULSE 62
== END 2022-03-25 21:15 | disposition home or self-care (01) ==
LOC: COL.ER 17:51
PROVIDERS: Nurse Practitioner Family
DX: T82.838A Hemorrhage due to vascular prosthetic devices, implants and grafts, initial encounter (principal); I12.0 Hypertensive chronic kidney disease with stage 5 chronic kidney disease or end stage renal disease; E11.22 Type 2 diabetes mellitus with diabetic chronic kidney disease; N18.6 End stage renal disease; Z87.891 Personal history of nicotine dependence; Z99.2 Dependence on renal dialysis

== ENCOUNTER 2022-08-07 09:52 | Inpatient (IN) | payer MEDICARE, MEDICAID ==
[~2022-08-07] VITALS: Ht 167.6 cm; Wt 59.3 kg
[~2022-08-07 09:52] MED LIST changes: +KEPPRA250 MG PO
[2022-08-07 10:25] LABS: BASO % 0.4 % (0.0-2.0); EOS # 0.3 K/mm3 (0.0-0.7); EOS % 3.5 % (0.0-4.0); GRAN % 70.4 % (42.2-75.2); HEMATOCRIT 37.9 % (42.0-52.0); HEMOGLOBIN 11.8 g/dl (13.5-18.0); LYMPH # 1.4 K/mm3 (1.2-3.4); MEAN CELL VOLUME 95 fl (80.0-100.0); MEAN CORPUSCULAR HEMOGLOBIN 30 pg (27-31); MEAN CORPUSCULAR HGB CONC 31 g/dl (33.0-37.0); MEAN PLATELET VOLUME 11.1 fl (7.4-10.4); MONO # 0.7 K/mm3 (0.1-0.6); MONO % 8.2 % (1.7-9.3); PLATELET COUNT 92 K/mm3 (130-400); RED BLOOD COUNT 3.99 M/mm3 (4.20-5.60); REDCELL DISTRIBUTION WIDTH-CV 13.7 % (11.5-14.5)
[2022-08-07 11:05] LABS: ALBUMIN 3.5 gm/dL (3.4-4.8); BILIRUBIN,TOTAL 0.6 mg/dL (0.2-1.2); CALCIUM 8.1 mg/dL (8.4-10.2); CREATININE, serum 5.92 mg/dL (0.72-1.25); POTASSIUM 5.2 mmol/L (3.5-4.5); TOTAL PROTEIN 7.7 gm/dL (6.2-8.1)
[2022-08-07] MEDS ORDERED: PREDNISONE 5MG5 MG PO (11:44)
[2022-08-07 12:25] LABS: MUCOUS Present (NOT PRESENT); SQUAMOUS EPITHELIAL 0-2 /hpf (0-10); URINE BACTERIA Moderate /hpf (NONE SEEN)
[2022-08-07 12:26] LABS: URINE APPEARANCE Turbid (CLEAR/HAZY); URINE COLOR OTHER (YELLOW)
[2022-08-07 12:37] LABS: COLLECTION METHOD CATHETER
[2022-08-07 16:18] VITALS: BP 184/69; PULSE 60
--- NOTE | 2022-08-07 16:20 | NUR ---
Pt to medical floor, room 313. Pt is alert but not oriented. HR RRR. LCTA. BSx4. LUE fistual with bruit/thrill noted; restriction band in place. INT in R forearm patent, no edema or redness. Sanchez catheter remains in place. BP elevated at 184/69, Dr. Tejeda notified and no new orders given. Call light within reach. Fall precautions in place.
--- NOTE | 2022-08-07 16:40 | NUR ---
Patient to dialysis at this time via bed.
--- NOTE | 2022-08-07 16:45 | NUR ---
Pt to dialysis at this time.
--- NOTE | 2022-08-07 18:33 | NUR ---
Patient is still in dialysis. Reported off to oncoming nurse for need of Physical Admission Assessment.
[2022-08-07 21:10] VITALS: BP 199/87; PULSE 65; TEMP 97.9
[2022-08-07 23:26] VITALS: BP 157/70; PULSE 58; TEMP 97.6
--- NOTE | 2022-08-08 01:37 | NUR ---
PATIENT ARRIVED FROM DIALYSIS TO ROOM 313. THE DIALYSIS NURSE STATED THAT HE PULLED OUT THE DIALYSIS CATHETER AND WAS BLEEDING FOR NEARLY 30MINS. GAUZE/TAPE COVERING BERNADETTE FISTULA, HAS BRUIT/THRILL PRESENT. CONTEH PRESENT WITH CLOUDY/WAGNER URINE, BLOOD PRESENT AT PENIS TIP, CATHETER CARE GIVEN. SCD'S PLACED ON PATIENT. PATIENT REFUSED DINNER, BG- 84, HELD INSULIN. BP- 190'S/80'S, GIVEN NIGHTLY MEDICATIONS AND PRN HYDRALAZINE. CREA- 5.92. K- 5.2. BC PENDING. PT/OT ORDERED. STILL NEEDING DNR PAPERWORK, FULL CODE UNTIL THIS IS IN CHART. DISCHARGE PLAN TO GO BACK TO [facility]. CALL LIGHT IN REACH. BED IN LOWEST POSITION. FOLLOWING FALL RISK PROTOCAL. BED ALARM ACTIVE. LUE RESTRICTED.
--- NOTE | 2022-08-08 02:03 | NUR ---
THIS NURSE NOTIFIED DR. DESOUZA REGARDING HYPERTENSION AND PATIENT PULLING OUT DIALYSIS CATHETER AROUND 2100 ON 08/07/2022. HE STATED TO GIVE THE PRN HYDRALAZINE AND MONITOR AT THIS TIME.
[2022-08-08 04:19] VITALS: BP 165/71; PULSE 56; TEMP 98.5
[2022-08-08 06:55] LABS: BASO % 0.4 % (0.0-2.0); EOS # 0.4 K/mm3 (0.0-0.7); EOS % 3.7 % (0.0-4.0); GRAN # 7.6 K/mm3 (1.4-6.5); GRAN % 76.9 % (42.2-75.2); LYMPH % 10.3 % (20.0-51.0); MEAN CELL VOLUME 94 fl (80.0-100.0); MEAN CORPUSCULAR HEMOGLOBIN 30 pg (27-31); MEAN CORPUSCULAR HGB CONC 32 g/dl (33.0-37.0); MEAN PLATELET VOLUME 10.9 fl (7.4-10.4); MONO # 0.8 K/mm3 (0.1-0.6); MONO % 8.1 % (1.7-9.3); PLATELET COUNT 141 K/mm3 (130-400); RED BLOOD COUNT 3.31 M/mm3 (4.20-5.60); REDCELL DISTRIBUTION WIDTH-CV 13.6 % (11.5-14.5)
[2022-08-08 07:01] LABS: CALCIUM 8.3 mg/dL (8.4-10.2); CREATININE, serum 4.86 mg/dL (0.72-1.25); PHOSPHOROUS 3.1 mg/dL (2.3-4.7); POTASSIUM 4.3 mmol/L (3.5-4.5)
[2022-08-08 07:20] VITALS: BP 163/75; PULSE 101; TEMP 98.3
--- NOTE | 2022-08-08 09:25 | NUR ---
EVELYN called pt's identified NOK/DPOA Zainab Tinsley, sister at [phone] at 0925am to complete intake. NOK/DPOA was short with SW and stated "I completed this yesterday with staff and provided updated information." EVELYN verified plan was to discharge back to [facility] for [facility] care and explained PT/OT had been ordered and update would be given with results. NOK/DPOA explained in the past pt has used speech therapy and assistance with swallowing.
--- NOTE | 2022-08-08 09:53 | NUR ---
SW spoke with NOK due to pt's history of dementia.
--- NOTE | 2022-08-08 09:54 | NUR ---
SW faxed updates to [facility]
--- NOTE | 2022-08-08 10:00 | NUR ---
Initial visit; Patient thanked [employer] for visiting and offering prayer and God's blessings. [employer]ic prayed for continued healing for Victor Manuel and will keep him in her prayers.
[2022-08-08 11:22] VITALS: BP 160/63; PULSE 60; TEMP 97.9
[2022-08-08 15:15] VITALS: BP 130/60; PULSE 65; TEMP 98
[2022-08-08 19:08] VITALS: BP 136/67; PULSE 65; TEMP 97.9
[2022-08-08 22:54] VITALS: BP 149/66; PULSE 63; TEMP 98.5
[2022-08-09 03:14] VITALS: BP 147/65; PULSE 60; TEMP 98.2
--- NOTE | 2022-08-09 05:13 | NUR ---
OVERNIGHT PTS VITAL SIGNS REMAINED WITHIN NORMAL LIMITS, PT DENIED PAIN, PT WAS PLEASENT AND ORIENTED TO SELF PER DOCUMENTATION THIS APPEARS TO BE PATIENTS BASELINE ORIENTATION. PT HAD 1 BM OVERNIGHT AND WAS CLEANSED. AT CONTEH SITE THERE IS SOME BLOOD AND IRRITATION TO THE TIP OF THE PENIS, PT DENIES PULLING ON CONTEH. IV REMAINS INT TO R FA, DIALYSIS CATH TO L UPPER ARM INTACT WITH RESTRICTION ON THAT ARM. PT TURNED Q2 AND ASSISTED WITH ORAL INTAKE NO SKIN ISSUES NOTED ON PATIENT. NO NEW REQUESTS AT TIME.
[2022-08-09 07:23] VITALS: BP 163/68; PULSE 64; TEMP 98.1
--- NOTE | 2022-08-09 08:06 | NUR ---
RECEIVED CALL FROM DIALYSIS NURSE FOR THIS PT. PATIENT REFUSING DIALYSIS. DR. DESOUZA HAS BEEN NOTIFIED. PATIENT BEING SENT BACK TO ROOM.
--- NOTE | 2022-08-09 08:19 | NUR ---
PATIENT BACK IN ROOM. PATIENT IS REFUSING ALL MEDICATIONS. STATES HE WILL NOT TAKE ANYTHING.
[2022-08-09] MEDS ORDERED: APRESOLINE 25MG25 MG PO (10:24)
[2022-08-09] MEDS ORDERED: BACTRIM DS 8001 TAB PO (10:26)
--- NOTE | 2022-08-09 10:26 | NUR ---
RECEIVED VERBAL ORDER FROM DR. DESOUZA TO REMOVE CONTEH CATHETER. PATIENT DISCHARGING BACK TO [facility]
[2022-08-09 10:35] VITALS: BP 163/68; PULSE 64; TEMP 98.1
--- NOTE | 2022-08-09 11:28 | NUR ---
The patient is to discharge today, 08/09, back to [place] [facility] for long-term care. Transportation was scheduled around 1230, via [facility]. SW informed the patient's sister, Zainab, and the RN of the time. No additional needs at this time.
[2022-08-09 12:02] VITALS: BP 146/64; PULSE 68; TEMP 98.1
--- NOTE | 2022-08-09 12:08 | NUR ---
GAVE REPORT TO LUKASZ LAWS AT [facility] FOR THIS PATIENT. ACKNOWLEDGEDU UNDERSTANDING, AND ALSO STATES THEY KNOW THIS PATIENT WELL. YADY IS DCED. INT REMOVED. PICKUP IS SCHEDULED FOR 1230 PM.
[2022-08-11] MEDS ORDERED: RT ALBUTER2.5 MG/0.5 IH (12:03)
[2022-08-11] MEDS ORDERED: ROXANOL 20MG20 MG/ML SL (12:04)
[2022-08-11] MEDS ORDERED: SYSTANE 0.3-0.1 EACH OP (12:05)
[2022-08-11] MEDS ORDERED: TRANSDERM-0.5 MG/21 TD (12:05)
[2022-08-11] MEDS ORDERED: COMPAZINE25 MG/SUPP RC (12:05)
== END 2022-08-09 12:50 | DRG 689 ==
LOC: COL.ER 09:52 → MEDICAL 12:48
PROVIDERS: Family Medicine; ADMIT Internal Medicine Nephrology
PROC: 5A1D70Z Performance of Urinary Filtration, Intermittent, Less than 6 Hours Per Day (ICD-10-PCS; principal; 2022-08-07)
DX: N39.0 Urinary tract infection, site not specified (principal); G93.41 Metabolic encephalopathy; N18.6 End stage renal disease; J90 Pleural effusion, not elsewhere classified; I13.2 Hypertensive heart and chronic kidney disease with heart failure and with stage 5 chronic kidney disease, or end stage renal disease; I50.32 Chronic diastolic (congestive) heart failure; G91.1 Obstructive hydrocephalus; I69.354 Hemiplegia and hemiparesis following cerebral infarction affecting left non-dominant side; I16.0 Hypertensive urgency; Z20.822 Contact with and (suspected) exposure to COVID-19; F03.90 Unspecified dementia, unspecified severity, without behavioral disturbance, psychotic disturbance, mood disturbance, and anxiety; F41.9 Anxiety disorder, unspecified; F32.A Depression, unspecified; I25.10 Atherosclerotic heart disease of native coronary artery without angina pectoris; E78.5 Hyperlipidemia, unspecified; G25.81 Restless legs syndrome; D50.9 Iron deficiency anemia, unspecified; R13.12 Dysphagia, oropharyngeal phase; E11.42 Type 2 diabetes mellitus with diabetic polyneuropathy; G40.909 Epilepsy, unspecified, not intractable, without status epilepticus; E11.22 Type 2 diabetes mellitus with diabetic chronic kidney disease; D63.1 Anemia in chronic kidney disease; Z99.2 Dependence on renal dialysis; Z79.4 Long term (current) use of insulin; Z79.82 Long term (current) use of aspirin; Z95.5 Presence of coronary angioplasty implant and graft; Z86.74 Personal history of sudden cardiac arrest; Z23 Encounter for immunization
CPT/HCPCS: J0696; J1815; J7512